=== PATIENT | female | born 1985 | race Caucasian/White ===

== ENCOUNTER 2023-03-01 07:49 | Outpatient (OUT) | payer OTHER, SELFPAY ==
[2023-03-01 09:31] LABS: Basophils Percent Auto 0.2 % (0.2-2.0); Eosinophils Absolute Auto 0.2 10^3/uL (0.0-0.7); Eosinophils Percent Auto 1.9 % (0.9-7.0); Hematocrit 42.4 % (36.0-48.0); Immature Granulocytes Abs Auto 0.07 10^3/uL (0.00-0.03); Immature Granulocytes Pct Auto 0.8 % (0.0-0.5); Lymphocytes Absolute Auto 2.3 10^3/uL (1.2-3.8); Lymphocytes Percent Auto 25.3 % (20.5-60.0); Mean Corpuscular Hemoglobin 27.9 pg (26.7-34.0); Mean Corpuscular Volume 84.5 fL (81.0-99.0); Mean Platelet Volume 8.4 fL (9.5-13.5); Monocytes Absolute Auto 0.5 10^3/uL (0.3-0.8); Neutrophils Absolute Auto 5.9 10^3/uL (1.4-6.5); Neutrophils Percent Auto 65.8 % (43.0-75.0); Platelet Count 401 10^3/uL (150-450); Red Blood Count 5.02 10^6/uL (4.20-5.40); Red Cell Distribution Width 13.6 % (11.0-15.0); White Blood Count 8.9 10^3/uL (4.0-11.0)
[2023-03-01 10:29] LABS: Alanine Aminotransferase 24 U/L (14-59); Albumin Globulin Ratio 0.9; Albumin Level 3.7 g/dL (3.4-5.0); Alkaline Phosphatase 88 U/L (46-116); Anion Gap 10.9; Aspartate Amino Transferase 12 U/L (15-37); BUN Creatinine Ratio 15.1; Bilirubin Total 0.2 mg/dL (0.2-1.0); Calcium 8.9 mg/dL (8.5-10.1); Carbon Dioxide 28.3 mmol/L (21.0-32.0); Chloride 103 mmol/L (98-107); Chol HDL Ratio 4.5; Cholesterol 183 mg/dL (<=200); Estimated GFR (African America >60 (>=60); Estimated GFR (Non-African Ame >60 (>=60); Globulin 3.9 g/dL; Glucose 98 mg/dL (74-106); HDL Cholesterol 41 mg/dL (40-60); Potassium 4.2 mmol/L (3.5-5.1); Sodium 138 mmol/L (136-145); Total Protein 7.6 g/dL (6.4-8.2); Triglycerides 150 mg/dL (<=150)
== END 2023-03-01 07:50 | disposition home or self-care (01) ==
LOC: LAB 07:50
PROVIDERS: PCP Family Medicine; Visit Provider Family Medicine
DX: Z00.00 Encounter for general adult medical examination without abnormal findings (principal)
CPT/HCPCS: 36415; 80053; 80061; 84443; 85025

== ENCOUNTER 2023-03-01 07:53 | Outpatient (OUT) | payer OTHER, SELFPAY ==
--- NOTE | 2023-03-01 08:05 | US_ITS ---
The [address] [address] Patient Name: LEANDRO HEATON MRN: [id number] date: 1985 Sex: F Assigned Patient Location: US Current Patient Location: Accession/Order Number: [id number] Exam Date: 03/01/2023 08:10 Report Date: 03/02/2023 07:32 At the request of: TATE ADDISON Procedure: US pelvis w/ transvaginal EXAM: Pelvic ultrasound ultrasound CLINICAL INDICATION: Irregular Menstruation N92.6. TECHNIQUE: Transabdominal and transvaginal grayscale and color Doppler images were obtained. FINDINGS: Uterus: Uterus measures 9.7 x 6.0 x 6.1 cm. Endometrium measures 23 mm thickness and is somewhat heterogenous echogenicity. Hypoechoic regions in the uterus, the largest measuring up to 1.2 cm, one of these is submucosal. Nabothian cysts. Right ovary: Measures 2.3 x 1.1 x 1.7 cm. Normal color flow and Doppler arterial and venous waveforms. No ovarian masses. Left ovary: Measures 4.0 x 2.0 x 2.9 cm. Normal color flow and Doppler arterial and venous waveforms. No ovarian masses. No free fluid in the pelvis. US/US pelvis w/ transvaginal IMPRESSION: Heterogenous thickened endometrium with multiple small uterine lesions. Findings likely represent small fibroids including a submucosal fibroid. However given the endometrial thickening a primary endometrial lesion cannot be excluded. Recommend follow-up ultrasound in 3 months. Electronically authenticated by: MORRIS TATUM Date: 03/02/2023 07:32
--- NOTE | 2023-03-01 09:10 | MM_ITS ---
Patient: LEANDRO HEATON Exam Date: 03/01/2023 : 1985 Gender:F Ordering : DR Wendy Ballard M.D. Admission #: [id number] Family : Order #: [id number] CLICK HERE TO VIEW EXAM RADIOLOGY REPORT PROCEDURE: MM TOMOSYNTHESIS SCREENING BI COMPARISON: MG MAMM DIAGNOSTIC 3D ROGE CAD, 01/12/2022. INDICATIONS: Screening Calculator Name NCI Breast Cancer Risk Assessment Tool 5 Year Breast Cancer Risk 1.00% Lifetime Breast Cancer Risk 16.90% Personal Breast Cancer No Personal Ovarian Cancer No Treatments None Family Cancers Mother with breast cancer at age 64. LOCATION: The [facility] BREAST COMPOSITION: Almost entirely fatty. FINDINGS: DIAGNOSTIC CATEGORY 2--BENIGN FINDING. NO CHANGE FROM COMPARISON. Scattered benign-appearing calcifications are present. RIGHT BREAST: No significant suspicious finding. LEFT BREAST: No significant suspicious finding. RECOMMENDATIONS: ROUTINE MAMMOGRAM AND CLINICAL EVALUATION IN 12 MONTHS. PLEASE NOTE: A NORMAL MAMMOGRAM DOES NOT EXCLUDE THE POSSIBILITY OF BREAST CANCER. A CLINICALLY SUSPICIOUS PALPABLE LUMP SHOULD BE BIOPSIED. Dictated by: Lane Edwards MD on 03/01/2023 at 10:30 Approved by: Lane Edwards MD on 03/01/2023 at 11:08
== END 2023-03-01 07:54 | disposition home or self-care (01) ==
LOC: US 07:53
PROVIDERS: PCP Family Medicine; Visit Provider Family Medicine
DX: Z00.00 Encounter for general adult medical examination without abnormal findings (principal); Z12.31 Encounter for screening mammogram for malignant neoplasm of breast; N92.6 Irregular menstruation, unspecified; Z80.3 Family history of malignant neoplasm of breast; R93.89 Abnormal findings on diagnostic imaging of other specified body structures
CPT/HCPCS: 36415; 76830; 76856; 77063; 77067; 80053; 80061; 84443; 85025

== ENCOUNTER 2023-04-22 11:42 | Outpatient (OUT) | payer OTHER, SELFPAY ==
--- NOTE | 2023-04-22 11:44 | ECG_ITS ---
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
== END 2023-04-22 11:43 | disposition home or self-care (01) ==
LOC: PST 11:44
PROVIDERS: PCP Family Medicine; Visit Provider Obstetrics & Gynecology
DX: Z01.810 Encounter for preprocedural cardiovascular examination (principal); R93.89 Abnormal findings on diagnostic imaging of other specified body structures; N93.9 Abnormal uterine and vaginal bleeding, unspecified; R10.2 Pelvic and perineal pain; N83.9 Noninflammatory disorder of ovary, fallopian tube and broad ligament, unspecified
CPT/HCPCS: 93005

== ENCOUNTER 2023-04-29 11:09 | Day surgery (SDC) | payer OTHER, SELFPAY ==
[2023-04-22 11:38] VITALS: BP 146/89; PULSE 72; RESP 20; TEMP 36.2; O2SAT 95; BMI 51.5
[2023-04-29] VITALS (14 sets, daily range): BP systolic 112–155; BP diastolic 69–97; PULSE 71–101; RESP 14–23; TEMP 36.3–36.7; O2SAT 92–100; BMI 51.5
[2023-04-29 11:39] LABS: Basophils Percent Auto 0.3 % (0.2-2.0); Eosinophils Absolute Auto 0.2 10^3/uL (0.0-0.7); Eosinophils Percent Auto 1.9 % (0.9-7.0); Hematocrit 42.2 % (36.0-48.0); Immature Granulocytes Abs Auto 0.06 10^3/uL (0.00-0.03); Immature Granulocytes Pct Auto 0.7 % (0.0-0.5); Lymphocytes Absolute Auto 2.4 10^3/uL (1.2-3.8); Lymphocytes Percent Auto 26.6 % (20.5-60.0); Mean Corpuscular HGB Conc 33.2 g/dL (29.9-35.2); Mean Corpuscular Hemoglobin 27.8 pg (26.7-34.0); Mean Corpuscular Volume 83.9 fL (81.0-99.0); Mean Platelet Volume 8.5 fL (9.5-13.5); Monocytes Absolute Auto 0.4 10^3/uL (0.3-0.8); Neutrophils Absolute Auto 5.8 10^3/uL (1.4-6.5); Neutrophils Percent Auto 65.5 % (43.0-75.0); Platelet Count 419 10^3/uL (150-450); Red Blood Count 5.03 10^6/uL (4.20-5.40); Red Cell Distribution Width 13.2 % (11.0-15.0); White Blood Count 8.9 10^3/uL (4.0-11.0)
[2023-04-29] MEDS: LACTATED RINGER'S SOLUTION 1,000 ML 50 ML IV ×2 (11:41→13:20)
[2023-04-29 11:46] LABS: HCG Quantitative <1 mIU/mL
--- NOTE | 2023-04-29 13:30 | P.ON_ITS ---
Brief Operative Note Date of procedure: 04/29/23 Pre-op diagnosis: aub, pelvic pain, dysmenorrhea Post-op diagnosis: other (uterine fibroid) Procedure: NAME OF PROCEDURE: [ D&c hysteroscopy with myosure dx laparoscopy with bilateral salpingectomy] PROCEDURE: The patient was taken back to the Operating Room where she was prepped and draped in normal sterile fashion after being placed under general anesthesia without difficulty. She was also placed in the dorsal lithotomy position. A weighted speculum was placed in the patient?s vagina. The anterior lip of the cervix was identified and grasped with a single tooth tenaculum. The patient?s uterus was then sounded roughly to [? 8] cm. The patient was then gently dilated using Hegar dilators. The hysteroscope was passed through the patient?s cervix into the uterus. Both ostia were identified. fluffy appearing endometrium. No gross evidence of malignancy, no gross evidence of polyps or fibroids. The MyoSure was then placed through the scope into the uterus, endometrial sampling in all quadrants was then performed. The mysosure was also used to remove a intramural uterine fibroid. the myosure apparatus was removed along with the hysteroscope from the patient's uterus. At that point, gentle curettage was performed until a gritty texture was noted. The endometrial curettings were sent out to pathology. The single tooth tenaculum was then removed from the patient's anterior lip of the cervix where excellent hemostasis was noted. . A wet sponge stick was placed into the patient's vagina. Attention was then turned to the patient's abdomen, where a scalpel was used to make a small infraumbilical incision. The S retractors were then used to dissect the underlying layers until the fascia could be seen. The fascia was then grasped with Bekah clamps and tented up. A knife was then used to make a small incision to the fascia. The muscle was identified, at that time two sutures of #0 Vicryl on a GI needle was then used and placed through the fascia. the peritoneum was then identified and entered bluntly. The 10-4 Cindy was then placed into the patient's abdomen. This was confirmed with direct visualization of the bowel, using the laparoscope. The patient's abdomen was then insufflated using approximately 4 liters of CO2 gas. Survey of the patient's abdomen demonstrated ovaries were normal in appearance as well as both tubes and uterus. A second and third rt and lt lateral ports which were 5 and 8 mm in size, was then placed after the skin incision was made under direct visualization . The patient's tube on the patient's right side was identified and tented up using a grasper, the ligasure apparatus was then used to come across the mesosalpingx from the fimbriated end to the insertion site at the uterus, the tube was then amputated and removed in its entirety. This was done on the contralateral side. The tubes were the removed from the patients abdomen. Excellent hemostasis was noted. The lateral ports were then moved under direct visualization with excellent hemostasis. All instruments were removed from the patient's abdomen. The fascia was closed using the #0 Vicryl on GI needle. The skin was closed using 4-0 Vicryl subcuticularly. All instruments were removed from the patient's vagina as well. The patient was taken out of the dorsal lithotomy position and placed in the supine position and taken to recovery in stable condition. Sponge, lap and needle counts were correct x2. Anesthesia: BRIANNA Surgeon: Mauri Katz Continuous Wave Operator: Shari Pelletier Estimated blood loss (mL): 5 Pathology: other (uterine fibroid, endometrial curretting, bilateral tubes) Condition: stable Disposition: PACU
[2023-04-29] MEDS: HYDROCODONE/ACET 5-325 MG TABLET 1 TAB PO (14:17)
[2023-04-29] MEDS: HYDROMORPHONE HCL 0.5 MG/0.5 ML SYRINGE IV (14:22)
== END 2023-04-29 15:50 | disposition home or self-care (01) ==
PROVIDERS: PCP Family Medicine; Visit Provider Obstetrics & Gynecology
PROC: (CPT 58558; principal; 2023-04-29 12:30)
DX: R93.89 Abnormal findings on diagnostic imaging of other specified body structures (principal); N93.9 Abnormal uterine and vaginal bleeding, unspecified; R10.2 Pelvic and perineal pain; N83.9 Noninflammatory disorder of ovary, fallopian tube and broad ligament, unspecified; F41.9 Anxiety disorder, unspecified; I10 Essential (primary) hypertension; G47.33 Obstructive sleep apnea (adult) (pediatric); Z90.49 Acquired absence of other specified parts of digestive tract; Z98.51 Tubal ligation status; D25.0 Submucous leiomyoma of uterus
CPT/HCPCS: 58558; 58661; 36415; 84702; 85025; 88302; 88305; J1170; J2704

== ENCOUNTER 2024-05-28 10:47 | Outpatient (OUT) | payer OTHER, SELFPAY ==
[2024-05-28 11:08] LABS: Basophils Percent Auto 0.3 % (0.2-2.0); Eosinophils Absolute Auto 0.2 10^3/uL (0.0-0.7); Eosinophils Percent Auto 1.5 % (0.9-7.0); Hematocrit 42.6 % (36.0-48.0); Hemoglobin 13.6 g/dL (12.0-16.0); Immature Granulocytes Abs Auto 0.05 10^3/uL (0.00-0.03); Immature Granulocytes Pct Auto 0.5 % (0.0-0.5); Lymphocytes Absolute Auto 2.7 10^3/uL (1.2-3.8); Lymphocytes Percent Auto 27.1 % (20.5-60.0); Mean Corpuscular HGB Conc 31.9 g/dL (29.9-35.2); Mean Corpuscular Hemoglobin 27.3 pg (26.7-34.0); Mean Corpuscular Volume 85.5 fL (81.0-99.0); Mean Platelet Volume 8.4 fL (9.5-13.5); Monocytes Absolute Auto 0.6 10^3/uL (0.3-0.8); Monocytes Percent Auto 6.4 % (1.7-12.0); Neutrophils Absolute Auto 6.3 10^3/uL (1.4-6.5); Neutrophils Percent Auto 64.2 % (43.0-75.0); Platelet Count 352 10^3/uL (150-450); Red Blood Count 4.98 10^6/uL (4.20-5.40); Red Cell Distribution Width 13.4 % (11.0-15.0); White Blood Count 9.9 10^3/uL (4.0-11.0)
--- NOTE | 2024-05-28 11:10 | MM_ITS ---
Patient Name: LEANDRO HEATON MR#: [id number] : 1985 Exam Date: 05/28/2024 Ordering Doctor: DR Wendy Ballard M.D. RADIOLOGY REPORT PROCEDURE: MM TOMOSYNTHESIS SCREENING BI COMPARISON: MM TOMOSYNTHESIS SCREENING BI, 03/01/2023. MG MAMM DIAGNOSTIC 3D ROGE CAD, 01/12/2022. INDICATIONS: Screening Calculator Name NCI Breast Cancer Risk Assessment Tool 5 Year Breast Cancer Risk 1.10% Lifetime Breast Cancer Risk 16.70% Personal Breast Cancer No Personal Ovarian Cancer No Treatments None Family Cancers Mother with breast cancer at age 64. LOCATION: The [facility] BREAST COMPOSITION: The breasts are almost entirely fatty. FINDINGS: DIAGNOSTIC CATEGORY 1--NEGATIVE. RIGHT BREAST: No significant suspicious finding. No significant change has occurred. LEFT BREAST: No significant suspicious finding. No significant change has occurred. RECOMMENDATIONS: ROUTINE MAMMOGRAM AND CLINICAL EVALUATION IN 12 MONTHS. PLEASE NOTE: A NORMAL MAMMOGRAM DOES NOT EXCLUDE THE POSSIBILITY OF BREAST CANCER. A CLINICALLY SUSPICIOUS PALPABLE LUMP SHOULD BE BIOPSIED. Dictated by: Vladimir Miner M.D. on 05/28/2024 at 15:35 Approved by: Vladimir Miner M.D. on 05/28/2024 at 15:38
[2024-05-28 14:50] LABS: Anion Gap 14.9; Carbon Dioxide 25.5 mmol/L (21.0-32.0); Chloride 102 mmol/L (98-107); Potassium 4.4 mmol/L (3.5-5.1); Sodium 138 mmol/L (136-145)
[2024-05-28 14:51] LABS: Aspartate Amino Transferase 13 U/L (15-37); BUN Creatinine Ratio 10.8; Bilirubin Total 0.3 mg/dL (0.2-1.0); Calcium 9.2 mg/dL (8.5-10.1); Estimated GFR (African America >60 (>=60 mL/min/1.73m^2); Estimated GFR (Non-African Ame >60 (>=60 mL/min/1.73m^2); Glucose 97 mg/dL (74-106)
[2024-05-28 14:52] LABS: Alanine Aminotransferase 23 U/L (14-59); Albumin Globulin Ratio 0.9; Albumin Level 3.5 g/dL (3.4-5.0); Alkaline Phosphatase 95 U/L (46-116); Chol HDL Ratio 4.3; Cholesterol 198 mg/dL (<=200); Globulin 3.8 g/dL; HDL Cholesterol 46 mg/dL (40-60); Thyroid Stimulating Hormone 3.203 uIU/mL (0.358-3.740); Total Protein 7.3 g/dL (6.4-8.2); Triglycerides 124 mg/dL (<=150); VLDL CHOLESTEROL 24.8 mg/dL
== END 2024-05-28 10:48 | disposition home or self-care (01) ==
LOC: MAMMO 10:51
PROVIDERS: PCP Family Medicine; Visit Provider Family Medicine
DX: Z00.00 Encounter for general adult medical examination without abnormal findings (principal); Z12.31 Encounter for screening mammogram for malignant neoplasm of breast; Z80.3 Family history of malignant neoplasm of breast
CPT/HCPCS: 36415; 77063; 77067; 80053; 80061; 84443; 85025

== ENCOUNTER 2024-08-11 09:58 | Outpatient (OUT) | payer OTHER, SELFPAY ==
--- NOTE | 2024-08-11 10:15 | XR_ITS ---
The [address] [address] Patient Name: LEANDRO HEATON MRN: [id number] date: 1985 Sex: F Assigned Patient Location: [facility] Current Patient Location: [facility] Accession/Order Number: [id number] Exam Date: 08/11/2024 10:08 Report Date: 08/11/2024 10:23 At the request of: HELEN CONLEY Procedure: XR chest 2V EXAMINATION: XR chest 2V HISTORY: Fever, Cough COMPARISON: No relevant comparison available. TECHNIQUE: PA and lateral FINDINGS: LUNGS: No significant pulmonary parenchymal abnormalities. VASCULATURE: No increased pulmonary vasculature. PLEURA: No pneumothorax, effusion, or pleural thickening. CARDIAC: No cardiomegaly or cardiac silhouette abnormality. MEDIASTINUM: No visible mass or adenopathy. BONES: No fracture or visible bone lesion. Cervical disc replacement OTHER: Negative. XR/XR chest 2V IMPRESSION: No acute cardiopulmonary process Electronically authenticated by: SERVANDO TOSCANO Date: 08/11/2024 10:23
== END 2024-08-11 09:59 | disposition home or self-care (01) ==
LOC: RAD 10:00
PROVIDERS: PCP Family Medicine; Visit Provider Nurse Practitioner Family
DX: R50.9 Fever, unspecified (principal); R05.9 Cough, unspecified
CPT/HCPCS: 71046

== ENCOUNTER 2024-11-22 15:12 | Emergency (ER) | payer OTHER, BC, SELFPAY ==
[2024-11-22 15:17] VITALS: BP 147/88; PULSE 98; TEMP 36.8; O2SAT 97; BMI 49.2
--- OUTSIDE RECORDS SUMMARY | 2024-11-22 15:33 | XMS_ITS | CCD ---
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 Name Role Phone Evert Addison Unavailable MD Wendy Addison Primary Care Provider DO Amira Sewell Attending Provider Amira Sewell Unavailable AZAEL, DR WENDY Cullen Admitting Unavailable ADDISON, DR WENDY Cullen Attending Unavailable ADDISON, DR WENDY Cullen Primary Care Unavailable ADDISON, DR WENDY Cullen Consulting Unavailable ADDISON, DR WENDY Cullen Admitting Unavailable ADDISON, DR WENDY Cullen Attending Unavailable ADDISON, DR WENDY Cullen Primary Care Unavailable ADDISON, DR WENDY Cullen Consulting Unavailable ADDISON, DR WENDY Cullen Admitting Unavailable ADDISON, DR WENDY Cullen Attending Unavailable ADDISON, DR WENDY Cullen Primary Care Unavailable ADDISON, DR WENDY Cullen Consulting Unavailable AMIRA SEWELL Admitting Unavailable AMIRA SEWELL Attending Unavailable ADDISON, DR WENDY Cullen Primary Care Unavailable ADDISON, DR WENDY Cullen Admitting Unavailable ADDISON, DR WENDY Cullen Attending Unavailable ADDISON, DR WENDY Cullen Primary Care Unavailable VEBLEN, DR SERVANDO Hammond Consulting Unavailable ADDISON, DR WENDY Cullen Consulting Unavailable ADDISON, DR WENDY Cullen Admitting Unavailable ADDISON, DR WENDY Cullen Attending Unavailable ADDISON, DR WENDY Cullen Primary Care Unavailable ADDISON, DR WENDY Cullen Consulting Unavailable Sharita, Amber Y Attending Unavailable Sharita Amber Y Admitting Unavailable Wendy Addison Unavailable MD Wendy Addison Attending Provider DO Amira Sewell Attending Provider MD Wendy Addison Primary Care Provider [phone] Aziza Romero Attending Unavailable Aziza Romero Admitting Unavailable Wendy Addison Primary Care Unavailable Wendy Addison MD Primary Care Provider [phone] Aziza Romero DO Attending Provider Allergies Allergy Classification Reported Allergen(s) Allergy Type Date of Onset Reaction(s) Facility (4 sources) patient allergy list reviewed by nurse or physicia Propensity to adverse reactions 3 Comment:Done [place] Other (4 sources) Allergies Reconciled Propensity to adverse reactions Unknown [place] Other Medications Current Medications Medication Drug Class(es) Dates Sig (Normalized) Sig (Original) carvedilol 12.5 mg oral tablet (1 source) alpha-Adrenergic Lico, beta-Adrenergic Lico Start: 09-10-2024 take 1 tablet by mouth twice daily at mealtime Carvedilol (Coreg) 12.5 mg tablet Active 12.5 MG PO Twice daily September 10, 2024 1:00am must administer with a meal/food celecoxib 200 mg oral capsule (6 sources) Nonsteroidal Anti-inflammatory Drug Start: 03-14-2022 take 1 capsule by mouth every twenty-four hours Celecoxib 200 MG 1 capsule with food Orally Once a day for 90 day(s) Feb, Active Ciclopirox Treatment 8% (1 source) Start: 03-09-2022 Ciclopirox Treatment 8% Ciclopirox Treatment 8%, 1 (one) Application daily # 1, 03/09/2022, Ref. x2. Active External daily for 0 nail formula *Pick strength-form from [employer] for eRX* Feb, Active Iron (1 source) take 1 tablet by mouth once daily Iron 325 (65 Fe) MG 1 tablet Orally Once a day Active Neomycin-Polymyxi n-HC (1 source) Start: 03-09-2022 Neomycin-Polymyxin -HC Neomycin-Polymyxin -HC , 4 Metric Drop two times daily # 1, 03/09/2022, No Refill. Active Otic two times daily for 0 *Pick strength-form from [facility] for eRX* Feb, Active omeprazole 20 mg delayed release oral capsule (5 sources) Proton Pump Inhibitor Start: 11-16-2024 take 1 capsule by mouth once daily Omeprazole 20 mg capsule,delayed release(DR/EC) Active 20 MG PO Daily November 16, 2024 12:00am Start: 08-01-2024 End: 09-10-2024 take 1 capsule by mouth once daily Omeprazole 20 mg capsule,delayed release(DR/EC) Discontinued 20 MG PO Daily August 01, 2024 1:00am September 10, 2024 2:52pm sertraline 50 mg oral tablet (20 sources) Serotonin Reuptake Inhibitor Start: 09-10-2024 Sertraline 50 mg tablet Active 25 MG PO Daily September 10, 2024 3:16pm Start: 09-08-2024 End: 09-10-2024 take 1 tablet by mouth once daily Sertraline 50 mg tablet Discontinued 0 .ROUTE .COMPLEX September 08, 2024 3:12pm September 10, 2024 3:16pm TAKE 1 TABLET BY MOUTH EVERY DAY. TAKE WITH 25MG FOR 75MG DAILY Start: 08-01-2024 End: 09-08-2024 take 1 tablet by mouth once daily Sertraline 50 mg tablet Discontinued 50 MG PO Daily August 01, 2024 11:36am September 08, 2024 3:12pm Start: 02-24-2024 End: 08-01-2024 take 1 tablet by mouth once daily Sertraline 50 mg tablet Discontinued 0 .ROUTE .COMPLEX June 22, 2024 10:30am August 01, 2024 11:37am TAKE 1 TABLET BY MOUTH EVERY DAY. TAKE WITH 25MG FOR 75MG DAILY Start: 01-02-2024 End: 08-01-2024 take 2 tablets by mouth once daily Sertraline 25 mg tablet Discontinued 25 MG PO Daily February 25, 2024 9:47am August 01, 2024 11:36am Take with 50mg for 75mg daily Start: 01-02-2024 End: 02-25-2024 take 50 mg by mouth once daily Sertraline Active 25 MG PO Daily February 25, 2024 8:47am Take with 50mg for 75mg daily Start: 01-02-2024 End: 02-24-2024 Sertraline 50 mg tablet Disc ontinued 50 MG PO Daily January 28, 2024 3:41pm February 24, 2024 11:44am Take with 25mg for 75mg daily Start: 12-30-2023 End: 01-02-2024 Sertraline 100 mg tablet Discontinued 75 MG PO Every morning December 31, 2023 9:48am January 02, 2024 8:13am Start: 12-30-2023 End: 01-02-2024 take 75 mg by mouth once daily in the morning Sertraline Discontinued 75 MG PO Every morning December 31, 2023 8:48am January 02, 2024 7:13am Start: 03-27-2021 End: 12-30-2023 take 1 tablet by mouth once daily in the morning Sertraline 100 mg tablet Discontinued 100 MG PO Every morning March 27, 2021 12:00am December 30, 2023 10:59am take 1 tablet by haley th once daily Sertraline HCl 25 MG 1 tablet Orally Once a day for 90 days Total of 75mg daily Active take 1 tablet by haley th once daily Sertraline HCl 50 MG 1 tablet Orally Once a day for 90 days Total of 75mg daily Active terbinafine 250 mg oral tablet (1 source) Allylamine Antifungal Start: 03-08-2022 take 1 tablet by mouth once daily Terbinafine HCl 250MG Terbinafine HCl 250MG, 1 (one) Tablet Tablet daily # 30, 03/08/2022, Ref. x1. Active Oral daily for 0 *Pick strength-form from [facility] for eRX* Feb, Active Vitamin C 100 MG (11 sources) take 1 tablet by mouth once daily Vitamin C 100 MG 1 tablet Orally Once a day Active Completed/Discontinued Medications Medication Drug Class(es) Dates Sig (Normalized) Sig (Original) amoxicillin 875 mg / clavulanate 125 mg oral tablet (5 sources) Penicillin-class Antibacterial Start: 08-01-2024 End: 08-11-2024 take 1 tablet by mouth every twelve hours Amoxicillin-Pot Clavulanate 875-125 mg tablet Discontinued 1 TAB PO Every 12 hours 03 05August 01, 2024 1:00am August 11, 2024 10:31am Start: 08-23-2023 take 1 tablet by haley th every twelve hours Amoxicillin-Pot Clavulanate 875-125 MG 1 tablet Orally every 12 hrs for 10 day(s) Aug, Active ascorbic acid 1000 mg oral tablet (14 sources) Vitamin C Start: 03-27-2021 End: 01-24-2024 take 1 g by mouth once daily Ascorbic Acid (Vitamin C) (Vitamin C) 1,000 mg Tablet Discontinued 1 GM PO Daily March 27, 2021 12:00am January 24, 2024 2:23pm take 1 tablet by haley th every twenty-four hours Vitamin C 100 MG 1 tablet Orally Once a day Active baclofen 10 mg oral tablet (10 sources) gamma-Aminobutyric Acid-ergic Agonist Start: 03-27-2021 End: 04-11-2021 take 1 tablet by mouth twice daily as needed for muscle spasms Baclofen 10 mg tablet Discontinued 10 MG PO Twice daily as needed for Muscle Spasm March 27, 2021 12:00am April 11, 2021 8:06am benzonatate 200 mg oral capsule (4 sources) Non-narcotic Antitussive Start: 08-01-2024 End: 08-11-2024 take 1 capsule by mouth three times daily as needed for cough Benzonatate 200 mg capsule Discontinued 200 MG PO Three times daily as needed for cough 30 August 01, 2024 1:00am August 11, 2024 10:31am cefdinir 300 mg oral capsule (3 sources) Cephalosporin Antibacterial Start: 08-04-2024 End: 08-11-2024 take 1 capsule by mouth every twelve hours Cefdinir 300 mg capsule Discontinued 300 MG PO Every 12 hours 14 August 04, 2024 1:00am August 11, 2024 10:31am cephalexin 500 mg oral capsule (9 sources) Cephalosporin Antibacterial Start: 04-11-2021 End: 07-02-2023 take 1 capsule by mouth three times daily Cephalexin 500 mg capsule Discontinued 500 MG PO Three times daily 15 April 11, 2021 12:00am July 02, 2023 7:09am cyclobenzaprine hydrochloride 10 mg oral tablet (9 sources) Muscle Relaxant Start: 04-11-2021 End: 07-02-2023 take 1 tablet by mouth three times daily as needed for muscle spasms Cyclobenzaprine 10 mg tablet Discontinued 10 MG PO Three times daily as needed for back spasms 50 April 11, 2021 12:00am July 02, 2023 7:09am dextromethorphan hydrobromide 3 mg/ml / promethazine hydrochloride 1.25 mg/ml oral solution (3 sources) Phenothiazine, Uncompetitive V-cqlirt-B-aspartate Receptor Antagonist, Sigma-1 Agonist Start: 08-11-2024 End: 08-24-2024 take 1 mL by mouth every four to six hours as needed for cough Promethazine-Dm 6.25-15 mg/5 mL syrup Discontinued 5 ML PO EVERY 4-6 HOURS as needed for cough 118 7 August 11, 2024 1:00am August 24, 2024 12:44pm dicyclomine hydrochloride 10 mg oral capsule (10 sources) Anticholinergic Start: 01-24-2024 End: 05-19-2024 take 1 capsule by mouth twice daily as needed for pain Dicyclomine 10 mg capsule Discontinued 10 MG PO Twice daily as needed for abdominal pain February 12, 2024 8:28am May 19, 2024 3:40pm ferrous sulfate 325 mg oral tablet (20 sources) Start: 06-09-2024 End: 09-10-2024 take 1 tablet by mouth once daily Ferrous Sulfate (Ferosul) 325 mg (65 mg iron) tablet Discontinued 325 MG PO Daily June 09, 2024 1:00am September 10, 2024 2:52pm Start: 03-27-2021 End: 06-09-2024 take 1 tablet by mouth once daily Ferrous Sulfate, Dried (Iron) 159 mg (45 mg iron) Tablet Extended Release Discontinued 159 MG PO Daily March 27, 2021 12:00am June 09, 2024 10:20am take 1 tablet by haley th every twenty-four hours Iron 325 (65 Fe) MG 1 tablet Orally Once a day Active fluconazole 150 mg oral tablet (6 sources) Azole Antifungal Start: 09-02-2023 End: 01-23-2024 Fluconazole 150 mg tablet Discontinued 150 MG PO Q3D 2 September 02, 2023 1:00am January 23, 2024 9:02am glipiZIDE 10 mg oral tablet (6 sources) Sulfonylurea Start: 12-30-2023 End: 12-30-2023 take 2 tablets by mouth twice daily Glipizide 10 mg tablet Discontinued 20 MG PO Twice daily December 30, 2023 12:00am December 30, 2023 11:03am Start: 12-30-2023 End: 12-30-2023 take 20 mg by mouth twice daily Glipizide Discontinued 20 MG PO Twice daily December 29, 2023 11:00pm December 30, 2023 10:03am homatropine methylbromide 0.3 mg/ml / HYDROcodone bitartrate 1 mg/ml oral solution (2 sources) Opioid Agonist, Cholinergic Muscarinic Agonist Start: 08-24-2024 End: 09-10-2024 Hydrocodone-Homatropine (Hycodan) 5-1.5 mg/5 mL (5 mL) syrup Discontinued 5 ML PO Every 6 hours as needed for cough 80 4 August 24, 2024 September 10, 2024 2:52pm metoprolol tartrate 50 mg oral tablet (20 sources) beta-Adrenergic Lico Start: 08-01-2024 End: 09-10-2024 take 1 tablet by mouth twice daily Metoprolol Tartrate 50 mg tablet Discontinued 50 MG PO Twice daily August 01, 2024 11:36am September 10, 2024 3:15pm Start: 04-08-2024 take 1 tablet by haley th twice daily at mealtime Metoprolol Tartrate Active 0 .ROUTE .COMPLEX 180 April 08, 2024 12:20pm TAKE 1 TABLET BY MOUTH TWICE A DAY WITH FOOD FOR 30 DAYS Start: 09-16-2023 End: 08-01-2024 take 1 tablet by mouth twice daily at mealtime Metoprolol Tartrate 50 mg tablet Discontinued 0 .ROUTE .COMPLEX 180 April 08, 2024 1:20pm August 01, 2024 11:37am TAKE 1 TABLET BY MOUTH TWICE A DAY WITH FOOD FOR 30 DAYS Start: 09-16-2023 End: 01-13-2024 take 1 tablet by mouth twice daily at mealtime Metoprolol Tartrate Discontinued 0 .ROUTE .COMPLEX 60 September 16, 2023 10:06am January 13, 2024 8:32am TAKE 1 TABLET BY MOUTH TWICE A DAY WITH FOOD FOR 30 DAYS Start: 09-16-2023 End: 01-13-2024 take 1 tablet by mouth twice daily at mealtime Metoprolol Tartrate Discontinued 0 .ROUTE .COMPLEX 60 September 16, 2023 11:06am January 13, 2024 9:32am TAKE 1 TABLET BY MOUTH TWICE A DAY WITH FOOD FOR 30 DAYS Start: 09-16-2023 End: 09-16-2023 take 1 tablet by mouth twice daily Metoprolol Tartrate 50 mg tablet Discontinued 50 MG PO Twice daily September 16, 2023 1:00am September 16, 2023 11:06am Start: 04-10-2022 take 1 tablet by haley th once daily Metoprolol Succinate 25mg metoprolol succinate 25mg, 1 (one) Tablet daily # 30, 04/10/2022, Ref. x2. Active oral daily for 0 *Reorder from [facility] for eRx and Interaction Alerts* Mar, Active Start: 03-27-2021 End: 09-16-2023 take 1 tablet by mouth once daily in the morning Metoprolol Succinate 25 mg tablet extended release 24 hr Discontinued 25 MG PO Every morning March 27, 2021 12:00am September 16, 2023 10:29am take 1 tablet by haley th every twelve hours Metoprolol Tartrate 50 MG 1 tablet with food Orally Twice a day for 30 days Active take 1 tablet by haley th every twelve hours Metoprolol Tartrate 25 MG 1 tablet with food Orally Twice a day Active montelukast 10 mg oral tablet (14 sources) Leukotriene Receptor Antagonist Start: 09-04-2023 End: 01-24-2024 take 1 tablet by mouth once daily at bedtime Montelukast (Singulair) 10 mg tablet Discontinued 10 MG PO Daily at bedtime September 05, 2023 9:46am January 24, 2024 2:23pm [employer] tablet Orally qhs; Note: Source Status: Start; Provider: Azael Cullen take 1 tablet by haley th once daily at bedtime Singulair 10 MG 1 tablet Orally qhs for 30 days Active oxyCODONE hydrochloride 5 mg oral tablet (9 sources) Opioid Agonist Start: 04-11-2021 End: 07-02-2023 take 1 tablet by mouth every four to six hours as needed for pain Oxycodone 5 mg Tablet Discontinued 5 MG PO EVERY 4-6 HOURS as needed for pain 40 April 11, 2021 July 02, 2023 7:09am predniSONE 10 mg oral tablet (9 sources) Start: 04-11-2021 End: 07-02-2023 Prednisone 10 mg tablets,dose pack Discontinued 1 dose pk PO per package directions April 11, 2021 12:00am July 02, 2023 7:09am take 4 tabs for 3 days then take 3 tabs for 3 days then take 2 tabs for 3 days then take 1 tab for 3 days Start: 04-11-2021 End: 07-02-2023 Prednisone Discontinued 1 do se pk PO per package directions April 11, 2021 12:00am July 02, 2023 7:09am take 4 tabs for 3 days then take 3 tabs for 3 days then take 2 tabs for 3 days then take 1 tab for 3 days Start: 04-11-2021 End: 07-02-2023 Prednisone Discontinued 1 do se pk PO per package directions April 10, 2021 11:00pm July 02, 2023 6:09am take 4 tabs for 3 days then take 3 tabs for 3 days then take 2 tabs for 3 days then take 1 tab for 3 days Start: 04-11-2021 Prednisone Act sukumar 1 dose pk PO per package directions April 11, 2021 12:00am take 4 tabs for 3 days then take 3 tabs for 3 days then take 2 tabs for 3 days then take 1 tab for 3 days traMADol hydrochloride 50 mg oral tablet (16 sources) Opioid Agonist Start: 07-02-2023 End: 01-24-2024 take 1 tablet by mouth every four hours as needed for pain Tramadol 50 mg tablet Discontinued 50 MG PO Q4H as needed for pain 10 7 July 02, 2023 1:00am January 24, 2024 2:23pm Start: 03-27-2021 End: 04-11-2021 take 1 tablet by mouth every six hours as needed for pain Tramadol 50 mg tablet Discontinued 50 MG PO Q6H as needed for Pain March 27, 2021 12:00am April 11, 2021 8:06am triamcinolone acetonide 40 mg/ml injectable suspension (2 sources) Corticosteroid Start: 08-13-2023 Kenalog-40 Jul, 60 mg Turmeric extract (20 sources) Start: 03-27-2021 End: 07-02-2023 take 1 capsule by mouth once daily Turmeric 400 mg Capsule Discontinued 800 MG PO Daily March 27, 2021 12:00am July 02, 2023 7:11am Start: 03-27-2021 End: 07-02-2023 take 1 capsule by mouth once daily Turmeric 400 mg Capsule Discontinued 800 MG PO Daily March 26, 2021 11:00pm July 02, 2023 6:11am Start: 03-27-2021 End: 07-02-2023 take 800 mg by mouth once daily Turmeric Discontinued 800 MG PO Daily March 27, 2021 12:00am July 02, 2023 7:11am Start: 03-27-2021 End: 07-02-2023 take 800 mg by mouth once daily Turmeric Discontinued 800 MG PO Daily March 26, 2021 11:00pm July 02, 2023 6:11am Start: 03-27-2021 take 800 mg by mouth once yuko y Turmeric Active 800 MG PO Daily March 27, 2021 12:00am Turmeric 500 MG as directed Orally Active Problems Active Problems Problem Classification Problem Date Documented Da te Episodic/Chronic Abdominal pain (5 sources) Abdominal pain; Translations: [Unspecified abdominal pain] 02-06-2024 Episodic Allergic reactions (4 sources) Allergic contact dermatitis; Translations: [Allergic contact dermatitis, unspecified cause] Episodic Anxiety disorders (11 sources) Generalized anxiety disorder; Translations: [Generalized anxiety disorder] Onset: 02-16-2015 01-02-2024 Chronic Essential hypertension (17 sources) Essential hypertension; Translations: [Essential (primary) hypertension] Onset: 09-03-2018 Chronic Essential hypertension (1 source) Essential hypertension; Translations: [Essential hypertension, benign] Onset: 09-03-2018 Fever of unknown origin (5 sources) Fever; Translations: [Fever, unspecified] 08-11-2024 Episodic Gastrointestinal hemorrhage (9 sources) Hematochezia; Translations: [Melena] Onset: 06-23-2024 05-19-2024 Episodic Genitourinary symptoms and ill-defined conditions (6 sources) Genuine stress incontinence; Translations: [Stress incontinence (female) (male)] 05-20-2024 Chronic Immunizations and screening for infectious disease (1 source) Encounter for screening for other viral diseases; Translations: [Encounter for screening for other viral diseases] Episodic Influenza (5 sources) Influenza due to Influenza A virus; Translations: [Influenza due to other identified influenza virus with other respiratory manifestations] 08-11-2024 Episodic Joint disorders and dislocations; trauma-related (12 sources) Derangement of right knee; Translations: [Unspecified internal derangement of right knee] Chronic Joint disorders and dislocations; trauma-related (3 sources) Unspecified subluxation of right knee, initial encounter; Translations: [Unspecified subluxation of right knee, subsequent encounter] Onset: 03-14-2022 Resolved: 03-14-2022 Episodic Menstrual disorders (1 source) Irregular menstruation, unspecified Chronic Mood disorders (3 sources) Depression; Translations: [Depression, unspecified] Chronic Mood disorders (2 sources) Mood disorders; Translations: [Depression, unspecified] Mycoses (8 sources) Superficial mycosis; Translations: [Superficial mycosis, unspecified] Episodic Nonmalignant breast conditions (8 sources) Unspecified lump in the left breast, unspecified quadrant; Translations: [Lump in left breast] Onset: 01-12-2022 Episodic Osteoarthritis (20 sources) Osteoarthritis of right knee joint; Translations: [Unilateral primary osteoarthritis, right knee] Onset: 03-14-2022 Resolved: 03-14-2022 Chronic Other aftercare (1 source) Encounter for removal of sutures Episodic Other circulatory disease (3 sources) Elevated blood-pressure reading without diagnosis of hypertension; Translations: [Elevated blood-pressure reading, without diagnosis of hypertension] Episodic Other circulatory disease (1 source) Elevated blood-pressure reading, without diagnosis of hypertension; Translations: [Elevated blood-pressure reading, without diagnosis of hypertension] Episodic Other connective tissue disease (3 sources) Muscle pain; Translations: [Myalgia, other site] Episodic Other connective tissue disease (1 source) Myalgia, other site; Translations: [Myalgia, other site] Episodic Other connective tissue disease (2 sources) Trigger finger, right middle finger Episodic Other connective tissue disease (7 sources) Triggering of digit; Translations: [Trigger finger, unspecified finger] 07-02-2023 Episodic Other endocrine disorders (3 sources) Disorder of pituitary gland; Translations: [Other disorders of pituitary gland] Chronic Other endocrine disorders (1 source) Other disorders of pituitary gland; Translations: [Other disorders of pituitary gland] Chronic Other lower respiratory disease (5 sources) Cough; Translations: [Cough] 08-11-2024 Episodic Other non-traumatic joint disorders (4 sources) Pain in right knee; Translations: [PAIN IN RIGHT KNEE] Onset: 03-14-2022 Resolved: 03-14-2022 Episodic Other non-traumatic joint disorders (3 sources) Arthralgia of the lower leg; Translations: [Pain in right knee] Episodic Other nutritional; endocrine; and metabolic disorders (9 sources) Body mass index 40+ - severely obese; Translations: [Body mass index (BMI) 45.0-49.9, adult] Onset: 01-01-2019 Chronic Other nutritional; endocrine; and metabolic disorders (3 sources) Obesity; Translations: [Obesity, unspecified] Onset: 10-07-2014 Chronic Other nutritional; endocrine; and metabolic disorders (3 sources) Morbid obesity; Translations: [Morbid (severe) obesity due to excess calories] Chronic Other nutritional; endocrine; and metabolic disorders (1 source) Body mass index (BMI) 45.0-49.9, adult; Translations: [Body mass index (BMI) 45.0-49.9, adult] Chronic Other nutritional; endocrine; and metabolic disorders (1 source) Body mass index (BMI) 50.0-59.9, adult; Translations: [Body mass index (BMI) 50-59.9 , adult] Chronic Other nutritional; endocrine; and metabolic disorders (1 source) Obesity, unspecified; Translations: [Obesity, unspecified] Onset: 10-07-2014 Chronic Other nutritional; endocrine; and metabolic disorders (1 source) Morbid (severe) obesity due to excess calories; Translations: [Morbid (severe) obesity due to excess calories] Chronic Other screening for suspected conditions (not mental disorders or infectious disease) (13 sources) Encounter for screening for malignant neoplasm of cervix; Translations: [Encounter for screening mammogram for malignant neoplasm of breast] Onset: 02-23-2022 Episodic Other upper respiratory disease (2 sources) Allergic rhinitis; Translations: [Other allergic rhinitis] Chronic Other upper respiratory disease (1 source) Other allergic rhinitis Chronic Other upper respiratory infections (10 sources) Chronic maxillary sinusitis; Translations: [Chronic maxillary sinusitis] Onset: 11-08-2015 09-02-2023 Chronic Other upper respiratory infections (10 sources) Acute pharyngitis, unspecified; Translations: [Acute pharyngitis] Onset: 03-05-2022 08-01-2024 Episodic Otitis media and related conditions (8 sources) Otitis media; Translations: [Otitis media, unspecified, unspecified ear] Onset: 06-26-2018 Episodic Residual codes; unclassified (1 source) Other specified postprocedural states Episodic Spondylosis; intervertebral disc disorders; other back problems (14 sources) Cervical disc disorder at C5-C6 level with radiculopathy; Translations: [Cervical disc disorder with radiculopathy] Onset: 05-09-2021 Resolved: 05-09-2021 Episodic Unclassified (3 sources) CONTACT W/AND (SUSP) EXPOS COVID-19; Translations: [CONTACT W/AND (SUSP) EXPOS COVID-19] Onset: 03-05-2022 Unclassified (3 sources) Contraception care education done; Translations: [General counseling for initiation of other contraceptive measures] Onset: 10-07-2014 Unclassified (1 source) Screening examination for venereal disease; Translations: [Screening examination for venereal disease] Onset: 10-03-2018 Unclassified (1 source) Routine general medical examination at health care facility; Translations: [Routine general medical examination at health care facility] Onset: 11-11-2013 Unclassified (1 source) General counseling for initiation of other contraceptive measures; Translations: [General counseling for initiation of other contraceptive measures] Onset: 10-07-2014 Unclassified (1 source) Other screening mammogram; Translations: [Other screening mammogram] Onset: 09-03-2018 Unclassified (1 source) Body Mass Index 40.0-44.9, adult; Translations: [Body Mass Index 40.0-44.9, adult] Onset: 01-01-2019 Past or Other Problems Problem Classification Problem Date Documented Da te Episodic/Chronic Cardiac dysrhythmias (8 sources) Palpitations; Translations: [Palpitations] Onset: 02-16-2015 Episodic Diseases of mouth; excluding dental (4 sources) Sialoadenitis; Translations: [Sialoadenitis] Onset: 06-26-2018 Episodic Lymphadenitis (8 sources) Localized enlarged lymph nodes; Translations: [Localized enlarged lymph nodes] Onset: 06-22-2013 Episodic Unclassified (1 source) CONTACT W/AND (SUSP) EXPOS COVID-19; Translations: [CONTACT W/AND (SUSP) EXPOS COVID-19] Onset: 03-02-2022 Viral infection (8 sources) Verruca plantaris; Translations: [Plantar wart] Onset: 06-22-2013 Episodic Results Test Name Value Interpretation Reference Range Facility Influenza virus B Ag [Presen ce] in Upper respiratory specimen by Rapid immunoassayon 08-11-2024 FLUBV Ag IA.rapid Ql (Nph) Influenza virus B Ag [Presence] in Upper respiratory specimen by Rapid immunoassay [facility] No Panel Informationon 08-11 Influenza Type A (Rapid) Positive [facility] POC SARS CoV-2 Antigen Negative [facility] HCG ( test) IA.rapi d Ql (U)Ordered By: Aziza Romero on 06-23-2024 HCG ( test) Ql (U) Urine human chorionic gonadotropin (hCG) detection by immunoassay [facility] HCG,Urineon 06-23-2024 Beta HCG ( test) Ql (U) Negative Normal [facility] Comment on above: Result Comment: PERF ORMED BY: [place] [address] PATHOLOGIST NURSE WOUND ADAM RICKETTS M.D. Performed By: #### U HCG #### [address] 06-23-2024 L Specimen: [id number] Received: 06/23/24 Status: LAVERNE Perez Num: [id number] Spec Type: Surgical Subm Dr: Aziza Romero, DO Tissues: A Colon Biopsy (TRANSVERSE POLYP) Procedures: HE/2, Gross/Micro L4 Age/ Patient Sex Location Account Attending Physician Leandro Heaton 39/F [id number] Aziza Romero, SPEC NUM: [id number] RECD: 06/23/24 STATUS: LAVERNE CORINE NUM: [id number] CHERY: 06/23/24-1023 [facility] DR: Aziza Romero DO ENTERED: 06/23/24-[address]: COLLEEN TYPE: Surgical DEPT: S ENTERED BY: [id number] RECV BY: [id number] ORDERED: HE/2, Gross/Micro L4 ORDERED: HE/2, Gross/Micro L4 Pathological Diagnosis Polyp, transverse colon: Tubular Adenoma. - Negative For High Grade Dysplasia And Malignancy. Clinical Information Melena Gross Description Part A is received in formalin labeled with the patients name, date of , and transverse polyp is a saba-lazcano, focally erythematous, friable, 0.3 cm in greatest dimension polypoid fragment. The specimen is entirely submitted in a single cassette. (1, ns, [id number]) CPT Codes 58461 Specimen: [id number] Received: 06/23/24 Status: LAVERNE Perez Num: [id number] Spec Type: Surgical Subm Dr: Aziza Romero DO Tissues: A Colon Biopsy (TRANSVERSE POLYP) Procedures: HE/2, Gross/Micro L4 Patient: Leandro Heaton [id number] (Continued) Signed (signature on file) Adam Ricketts MD 06/24/24 1545 Normal [facility] Basophils Auto (Bld) [#/Vol] on 05-28-2024 Basophils (Bld) [#/Vol] Automated basophil count 0.0-0.1 [facility] Basophils/100 WBC Auto (Bld) on 05-28-2024 Basophils/100 WBC (Bld) Automated basophil % 0.2-2.0 [facility] Cholesterol in LDL Calc [Mas s/Vol]on 05-28-2024 Cholesterol in LDL [Mass/Vol] Cholesterol in LDL [Mass/volume] in Serum or Plasma by calculation [facility] Comment on above: <100 mg/dl [id number] 0-129 mg/dl NEAR OR ABOVE [id number] mg/dl BORDERLINE [id number] mg/dl HIGH>190 mg/dl VERY HIGH Cholesterol in VLDL Calc [Ma ss/Vol]on 05-28-2024 Cholesterol in VLDL [Mass/Vol] Cholesterol in VLDL [Mass/volume] in Serum or Plasma by calculation [facility] Eosinophils/100 WBC Auto (Bl d)on 05-28-2024 Eosinophils/100 WBC (Bld) Automated eosinophil % 0.9-7.0 [facility] Erythrocyte distribution wid th Auto (RBC) [Ratio]on 05-28-2024 Erythrocyte distribution width (RBC) [Ratio] Erythrocyte distribution width [Ratio] by Automated count 11.0-15.0 [facility] Estimated glomerular filtrat ion rate (GFR) non- Americanon 05-28-2024 GFR/1.73 sq M.predicted among non-blacks MDRD (S/P/Bld) [Vol rate/Area] Estimated glomerular filtration rate (GFR) non- >=60 mL/min/1.73m 2 [facility] Globulin Calc (S) [Mass/Vol] on 05-28-2024 Globulin (S) [Mass/Vol] Serum globulin measurement by calculation (mass/volume) [facility] Hematocrit Auto (Bld) [Volum e fraction]on 05-28-2024 Hematocrit (Bld) [Volume fraction] Hematocrit [Volume Fraction] of Blood by Automated count 36.0-48.0 [facility] Hemoglobin [Mass/volume] in Bloodon 05-28-2024 Hemoglobin (Bld) [Mass/Vol] Hemoglobin [Mass/volume] in Blood 12.0-16.0 [facility] Laboratory - Chemistry and C hemistry - challengeon 05-28-2024 Albumin [Mass/Vol] 3.5 g/dL 3.4-5.0 [facility] ALP [Catalytic activity/Vol] 95 U/L 46-116 [facility] ALT [Catalytic activity/Vol] 23 U/L 14-59 [facility] AST [Catalytic activity/Vol] 13 U/L Low 15-37 [facility] Bilirubin [Mass/Vol] 0.3 mg/dL 0.2-1.0 [facility] Calcium [Mass/Vol] 9.2 mg/dL 8.5-10.1 [facility] Chloride [Moles/Vol] 102 mmol/L 98-107 [facility] Cholesterol [Mass/Vol] 198 mg/dL <=200 [facility] Cholesterol in HDL [Mass/Vol] 46 mg/dL 40-60 [facility] Comment on above: > or =60 mg/dl - LOW CARDIOVASCULAR RISK<40 mg/dl - HIGH CARDIOVASCULAR RISK CO2 [Moles/Vol] 25.5 mmol/L 21.0-32.[address] [facility] Creatinine [Mass/Vol] 0.74 mg/dL 0.55-1.02 [facility] GFR/1.73 sq M.predicted MDRD (S/P/Bld) [Vol rate/Area] mL/min/{1.73_m2} >=60 mL/min/1.73m 2 [facility] Glucose [Mass/Vol] 97 mg/dL 74-106 [facility] Potassium [Moles/Vol] 4.4 mmol/L 3.5-5.1 [facility] Protein [Mass/Vol] 7.3 g/dL 6.4-8.2 [facility] Sodium [Moles/Vol] 138 mmol/L 136-145 [facility] Triglyceride [Mass/Vol] 124 mg/dL <=150 [facility] TSH Qn 3.203 m[IU]/L 0.358-3.740 [facility] Urea nitrogen [Mass/Vol] 8.0 mg/dL 7.0-18.0 [facility] Urea nitrogen/Creatinine [Mass ratio] 10.8 mg/mg [facility] Laboratory - Hematology and Cell countson 05-28-2024 Immature granulocytes/100 WBC (Bld) 0.5 % 0.0-0.5 [facility] Leukocytes [#/volume] correc arnel for nucleated erythrocytes in Blood by Automated counon 05-28-2024 WBC corrected for nucl RBC Auto (Bld) [#/Vol] Leukocytes [#/volume] corrected for nucleated erythrocytes in Blood by Automated coun 4.0-11.0 [facility] Lymphocytes Auto (Bld) [#/Vo l]on 05-28-2024 Lymphocytes (Bld) [#/Vol] Lymphocytes [#/volume] in Blood by Automated count 1.2-3.8 [facility] Lymphocytes/100 WBC Auto (Bl d)on 05-28-2024 Lymphocytes/100 WBC (Bld) Lymphocytes/100 leukocytes in Blood by Automated count 20.5-60.0 [facility] MCH Auto (RBC) [Entitic mass ]on 05-28-2024 MCH (RBC) [Entitic mass] MCH [Entitic mass] by Automated count 26.7-34.0 [facility] MCHC Auto (RBC) [Mass/Vol]on 05-28-2024 MCHC (RBC) [Mass/Vol] MCHC [Mass/volume] by Automated count 29.9-35.2 [facility] MCV Auto (RBC) [Entitic vol] on 05-28-2024 MCV (RBC) [Entitic vol] MCV [Entitic volume] by Automated count 81.0-99.0 [facility] Monocytes Auto (Bld) [#/Vol] on 05-28-2024 Monocytes (Bld) [#/Vol] Automated blood monocyte count 0.3-0.8 [facility] Monocytes/100 WBC Auto (Bld) on 05-28-2024 Monocytes/100 WBC (Bld) Automated monocyte % 1.7-12.0 [facility] Neutrophils Auto (Bld) [#/Vo l]on 05-28-2024 Neutrophils (Bld) [#/Vol] Neutrophils [#/volume] in Blood by Automated count 1.4-6.5 [facility] Neutrophils/100 WBC Auto (Bl d)on 05-28-2024 Neutrophils/100 WBC (Bld) Automated neutrophil % 43.0-75.0 [facility] No Panel Informationon 05-28 Eosinophils # (Auto) 0.2 10 3/uL 0.0-0.7 [facility] Immature Granulocyte # (Auto) 0.05 10 3/uL High 0.00-0.03 [facility] Platelet mean volume Auto (B ld) [Entitic vol]on 05-28-2024 Platelet mean volume (Bld) [Entitic vol] Platelet mean volume [Entitic volume] in Blood by Automated count Low 9.5-13.5 [facility] Platelets Auto (Bld) [#/Vol] on 05-28-2024 Platelets (Bld) [#/Vol] Platelets [#/volume] in Blood by Automated count 150-450 [facility] RBC Auto (Bld) [#/Vol]on RBC (Bld) [#/Vol] Erythrocytes [#/volume] in Blood by Automated count 4.20-5.40 [facility] Serum or plasma albumin/glob ulin mass ratioon 05-28-2024 Albumin/Globulin [Mass ratio] Serum or plasma albumin/globulin mass ratio [facility] Serum or plasma anion gap de terminationon 05-28-2024 Anion gap [Moles/Vol] Serum or plasma anion gap determination [facility] Serum or plasma total choles terol/high density lipoprotein (HDL) cholesterol mass grupo 05-28-2024 Cholesterol.total/Ch olesterol in HDL [Mass ratio] Serum or plasma total cholesterol/high density lipoprotein (HDL) cholesterol mass rat [facility] Comment on above: 3.3 - 4.4 LOW RISK4. 4 - 7.1 AVERAGE RISK7.1 - 11.0 MODERATE RISK>11.0 HIGH RISK Coding Summary.on 08-21-2022 Coding Summary. [id number] Gh0bWw+PGhlYWQ+PE1FV BTgD18chPUuoK2XI6wDV M8GAOECHXIPGE4NDW8uz RN5QSyjT1XropVj DxxunDMbNV11XVj6QEJ0 bUevOBapsI5qqQWhC6y8 BoBrWA53uV90XHxcQPBr SkF1NdNyktgcgBZe L8ikNzZemLDbWzz+PHRh YmxlIHdpZHRoPScxMDAl VcPibNcbGH8mSq5nSINt LWNvbGxhcHNlOiBj r0amBKAsHJfkUV2gkQdl Z7GvaFE0XOJmh6t2Um01 dHI+BTLcPOV9aMveXGfg a155EmKwg9qxOVT3 eNSkRQjjCUJ2B50du0D6 FCJnVOWaWLW7jMA4hT1v fMfjbsbhS5VyrIVmHyF7 PXI9bZIlyY7brUkj jglueZ4gGcg+U53YRM6B GONVIR0KEyk9T0ToXnfl dHI+JS82BLVyHQ74oTQo qTQyw9msaKv4EyXy JJTrYZQ2gIuwGSvea9Zy ILYbT06cnKNdy0C1MVLs cJcupXJjVuKqsBP8pZ2h DNzurdtqw4wspshk Ztpgc7agvl71eF95U94v JLmuWRSdBLQ4AKQtNWLt fRhddy8lmB3mLd9+IDxj r3iul4nkaOk8OeUr NOFnrhRxtRncCBC5j0Qh Gb70I4VnkDrnl0WxKyt0 bo58rOJbn0Q0pKV4LWmx NCTknS4nWYxsTlL1 MTLkBlUbcM19dYIbOVwy Sj5jmJnvuEkrOT8kXAOc zucjCZGlqS1mFSOxmTWz vCfbPT5kHJNaaqbv h586UeBdQOA3ZUXfcXAo O0GgtL4zPhTvELBlXGLs E7OdkTSqRGjxG062YEcw HiV5BWMemsGfA5Eq UUXdlAyoZaX6a1K2Ou2V k9BvwojqDSF6EJkzOSZd NeZ1OmIcHvI1V7AyEwn5 FYSwbAiwGS1bO9Gd MTBybgsgibamrNV8FNHd QRAmmC81rTQkNYvbHh3m e7N8j358MTAjHLQftG54 Cw0dsSmhOBNfeNOG rK3lptuye8jahgkuPtRb AJXrRIq8EQc1IQDqrHoc UrIpPTW8UyO9DNN8jKSm kO8pnNdjayygdC0y Oyc+C56fcJ8uGJZ7AGX3 xumpFKFcejXwAH37VP07 U2PiYaasyBPfjWJ+PGRp loJijWutSJ8oJaLe k5nwt9XxCEoeU2JoAOMi PRvzBtz6XCXhEVY8qVR8 qZ4aRJIgVFfwe2T1rLB4 J6NqrnKqdt4yb9lq DASsSTubC31ntJDur8X9 LVAdvMY9MVEcdDokLzDf bR44Gim+GAFzzScyj8Gb Tgrps4dce9lwwIj0 IjMwJSIgdmFsaWduPSJ0 f1CaYa02Y59rZOmzOWUg FKCxMWFjGZCheLilja8y uE9yUp7+PGNvbCB3 mKT6gE1zTNKsRzG4LRtr L098YlLoxHXeCtpwz7bf v4kwmYa3IbQgZHTcleDc iZkaPLR6z5QeYy75 W72pQZqlXXHrJGMkOSVd GPWvkGqdun4gyC0zSl5+ ON5co9icbo11pN98dTA+ INJdPXJ3lLqaHFtq BJZvmA8dPPclBgG7OFBg VjMygG19vXPxECxlLl0r gMecgPxhUP2fRPGucunv m036NbNdj1toWBLn wBFnIYgiRRY7T20de5Y7 DXJlCZMjDRT5uPV1kG4e bGlnbjogbGVmdDsgdmVy fNjfGHlhQBvpP065 IHRvcDsnPlBhdGllbnQg MvVcLUd0R3AeFvj7YLNs fChyTD5dkFFdTBtaNv7p aNwmkTabXT0lWJUx jhqxj483GrMfs8kcHJAt hQIwLJwrYTU9C89aw6T2 AAOzGVQdFXZ6aNO5fC4x bGlnbjogbGVmdDsg pfAzlXosOKfzBYctO892 IHRvcDsnPkJpcnRoIERh dQX3UN96KF15eDRkg7V3 hNI2Q8QjQNSwwudr ooztiMG8REEzWFJfvX12 Tm4kmFmuKj8xFESiUTG7 QZIjiZEfA5BosM3fDpCs BSBaPPQxF8ZnjRTc PIhkO395NOfvYjW0PQMc loHqV1WfKFYasDwcDhI2 i7O0Pa8MQ6C9SN47JK23 nEWga6Y1wVX9J1Xo IDCmcjlkkxhodYJ9QJMb OUXbbX68Bf1asEuqPw6o CHMfTCO2MTYxyDTgR3Mn bN2kAbRrUNRnIZXl C8YgaJNlWSjiA620MKsq JfU9UQZccoSpB3MwSAVv rQyyStU4x0I7Ra2EKCb2 JH22UF17sGUgv6T6 zQH6A1FsNPNbbezkjrsu qNA1NDNgGPJrjW92Sd9j qOrqQn7yXUSaJBK5EYSy xMCaK4VrgP8gIkUn FTPzZVIoG3KzmBXbTChq R156VRopKxL3XPCnbnEc H6CwJSVveGaoNgR0r9A0 Pn1HSPIdES02DMI1 gOD9RU74RI51Z8EdUnco dGFibGU+PHRhYmxlIHdp ZHRoPScxMDAlJyBzdHls RR8iFg9pPHVgSGDv oNtyzBCpImOne3nuJOPj WNumIY7wsMiaD7XjgUZ9 CKOwn2z5Fd28W96rY7Vl dXA+DZBfoKR3nYY6 cN1nGlHfBeE8GKqkJ822 EqNalYVaGdroy0arj4wm pHx0QcF8QEJlyjCmpTge LLS9p4RwPt59V29e IHdpZHRoPSIxNSUiIHZh lJdmew4rlY0hWq3+PGNv zSX6sPB0zI9uQjOpSpZ1 YAytO997SuXgrAYt Pdsoy4fdc9ukxUf7DuDb MIAaibIrcWqnKEH7b2Rc Yi79F3HhyGxgz3TdVzy4 dk38iJIyk0X5mPP3 Z3LoXISgoitwjYPgjAdg QV4zRHEngqpzQZEgwG8i JLPoU1d2TvJpOjM7KLko Y3VcunJ0ALXozUCt MQtqHJN6C80kv6C0TPWz JGSrBCY6iLQ9fA4fbBvh bjogbGVmdDsgdmVydGlj VIxaSEpcE068CAYp bOejMFIxaD6xYOUryMWy oRlbTE9xEJGvfkziAyWV E4XvIEiMLMPLZqvGAF19 C9TkRbf4AQSqnSdc CQ8nnVXjNStxUm3byWga rZsgPF3iMBGwxwzkLJCz tA7uROSinRVvcTtqBA9e JUVkjqnuy240BwEz MSX5GBMncLKxE4ZkiN1s HqTuCINdZWRyI2JzySPo UOoyP742KFjxSvM7BZGb zfIjW4OzEAHwtElb ImC7k8P2Sx3bXq7iIN3s SRkfZA14GV88jRWdm8P1 hDD4W2WeXBVooufxautn qJD0RBQgOVTgwZ78 uCSiIGkuLq2oz0H6g631 WONzLLBbbQ77Wn2olSxt SZGibZHYzU6adzurn4sp cjogIzAwMDAwMDt0 KAk7XWJbrUaoZqBwFVU7 YkD5XPC9jPAmsZ9siVpx acggqM7mPpd+MzkgWWVh jfK0T0CuWfw7AHIo bQuxFF1yqSLuBNtkBn5a pFgzxUcxWN8sDTItotah POSrxG0kHAPdbIVvkXsk QG2jCKAhuqfmq801 JlMcQSW3SKArpDGyZ2Zz fB8pDaNkFASmCRIqA5Gs hQFiKVneL538VJifPdE0 GKEvhpQnO0MnYYEi wUlzNmI1w2H6Kd9FNT5z bIA0G1DeZbz4XXJxdFph KE1nkTGxCPggBf5ziIdc tXxgXF5wGDQujleu ZMOnqL7gJLQguDZygIta ZN8pPABipanmh824VvYf QXZ4HBUqrLLgW9TgdL0n EjScZVNeFCMvK6Sj fTHcCCrqU473VJgbYuC5 DZFppjJkT7XxRHFhtLur PlK4h4N5Hq8IQGSnLXPh gDExGlH8O0LgYysv dHI+ST46YKQtHN90lWDc aMYtk5zcnJp0VhTfMEBd DRN2iVtvFCjlb7OqKQYl J74cmFHkl4Y7OUDx jKpruDJfRxTujBP0gU4n ANgepayon3upfcehNtmj k5kouq38iE71D55uFRpk ZHRoPSIzMCUiIHZh vDsctt7ljW2xMm4+PGNv pIW2lZM3wK1yAsXlJdY2 AOjmS322YvRbpMGpXmhf j0eja8oyfAc6DfAm VAItvtQdhCjrWOA2t0Gq Zs75L39lKIplYOEnPNSt UXYgQYUvqVoslf6woR2d Ii8+GG2fj7afeb65 rS19mPG+QGLhJCS2kLje EBqhKKGthX2pWDgaRnY2 DYBeQqWvvV33uBQiOLkg Wf5akMzzqZbhHG3q HGRpjwgxu632TxIxp3ia OACbfLGnWWexLEL2C35j s2P1NCIgFDUdBMH1kAX9 vN1otSjyjybyqXUd dDsgdmVydGljYWwtYWxp F947UFOahFhxLaOrkQFx V8wzxvNBDK3qDbpgfJM+ PBVkKGT9bTbzUEfd MEIyuQ3cKDBlJ7a9RhZv VzE6MWveQ2GpblG4MIWx aRBbKNDwoCPIrZ3nasiv a8fxuyfkYpJcVOJs FJj5LYm1AIGlfAnaEdKz TLM2MbO0TJW0pZDnzS3a jJthqrcjbA3pBwo+RklO OjwvdGQ+PHRkIHN0 cFjqHBaqHAYorD0rRMHh S9f5YwMgKvD9XOzlQ4Ev wcH1EAKakCDnBBJldDVJ hX5jukcwu5xgjzeb WjYdMNKbGCk4WIh9GVHq cOefIsJbWZN1QsJ0RLF0 vSPitJ3rwOkcndqrpL8y Oyc+TVJOOjwvdGQ+ JKHaXCD3vGogWYhrJIWd pL4iFEZbF2a1ErYmYrM4 OZgvY1LllbD2UZMqvVDz AMIcbDABoC2ybphz o2cuvbghJlIiYAIpFGj7 DJh5UGDrdKsqHeUoNPY5 BwG0VHT5nUObkG2xqLue ggqvhM9wGav+UGF5 OLS5WY36SO29M4TpLjjr dGFibGU+PHRhYmxlIHdp ZHRoPScxMDAlJyBzdHls PX1uSi4wIYFiMHXl bGxh (more content not included)... [facility] Physician Orderon 08-17-2022 Physician Order [id number] #[id number]:127 [facility] XR knee RT 3Von 03-14-2022 XR knee RT 3V [facility] [employer] Other XR knee RT 3V [facility] [employer] Other XR knee RT 3V [address] [facility] [employer] Other XR knee [place] [address] [address] [facility] [employer] Other XR knee RT 3V XRay Report [employer] Other XR knee RT 3V Signed [employer] Other XR knee RT 3V Patient: Leandro Heaton MR#: [id number] [facility] [employer] Other XR knee RT 3V 512 [employer] Other XR knee RT 3V : 1985 Acct:[id number] [employer] Other XR knee RT 3V Age/Sex: 37 / F ADM Date: 03/14/22 [employer] Other XR knee RT 3V Loc: [facility] Room: Type: [facility] [employer] Other XR knee RT 3V Attending Dr: Amira Sewell DO [employer] Other XR knee RT 3V Copies to: Amira Sewell DO [employer] Other XR knee RT 3V Ordering Provider: Amira Sewell DO [employer] Other XR knee RT 3V Date of Service: 03/14/22 [employer] Other XR knee RT 3V XR/XR knee RT 3V - NOT FOR ER USE: Acute pain of right knee [employer] Other XR knee RT 3V RIGHT KNEE - 3 views N [employer] Other XR knee RT 3V COMPARISON: None [employer] Other XR knee RT 3V CLINICAL DATA: Chronic right knee pain with radiation up and down the leg. No recent injury. [employer] Other XR knee RT 3V Standing AP, lateral and patellar views were obtained. There is no acute fracture or dislocation. [employer] Other XR knee RT 3V There is moderate lateral subluxation of the patella on both sides, right worse than left. There is [employer] Other XR knee RT 3V no disproportionate joint space narrowing or prominent hypertrophy. There is a trace amount of joint [employer] Other XR knee RT 3V fluid. The soft tissues are diffusely prominent related to body habitus. [employer] Other XR knee RT 3V XR/XR knee RT 3V - NOT FOR ER USE [employer] Other XR knee RT 3V IMPRESSION: [employer] Other XR knee RT 3V BILATERAL PATELLAR SUBLUXATION. [employer] Other XR knee RT 3V NO ACUTE BONY FINDINGS. [employer] Other XR knee RT 3V Impression dictated by: Melissa Gomez M.D.03/14/2022 4:39 PM [employer] Other XR knee RT 3V Dictation Location: [place] [address] [employer] Other XR knee RT 3V Transcribed By: PWS 03/14/22 [facility]9 [employer] Other XR knee RT 3V Dictated By: Melissa Gomez MD 03/14/22 [facility]7 [employer] Other XR knee RT 3V Signed By: [employer] Other XR knee RT 3V 03/14/22 1639 [employer] Other CBC AUTO DIFFon 03-12-2022 BASO # 0.0 103/ul Normal 0.0-0.1 [facility] Comment on above: Performed By: #### C BC #### [facility] [address] [address] [address] Harshal Michaels Basophils/100 WBC (Bld) 0.3 % Normal 0.2-2.0 [facility] Comment on above: Performed By: #### C BC #### [facility] [address] [address] [address] Harshal Michaels EO # 0.2 103/ul Normal 0.0-0.7 [facility] Comment on above: Performed By: #### C BC #### [facility] [address] [place] [address] Dr. Harshal Michaels Eosinophils/100 WBC (Bld) 1.4 % Normal 0.9-7.0 [facility] Comment on above: Performed By: #### C BC #### [facility] [address] [place] [address] Dr. Harshal Michaels Erythrocyte distribution width (RBC) [Ratio] 13.6 % Normal 11.0-15.0 [facility] Comment on above: Performed By: #### C BC #### [facility] [address] [place] [address] Dr. Harshal Michaels Hematocrit (Bld) [Volume fraction] 40.6 % Normal 36.0-48.0 [facility] Comment on above: Performed By: #### C BC #### [facility] [address] [place] [address] Dr. Harshal Michaels Hemoglobin (Bld) [Mass/Vol] 13.3 g/dL Normal 12.0-16.0 [facility] Comment on above: Performed By: #### C BC #### [facility] [address] [place] [address] Dr. Harshal Michaels IG # 0.06 10e3/ul Critically high 0.00-0.03 [facility] Comment on above: Performed By: #### C BC #### [facility] [address] [place] [address] Dr. Harshal Michaels IG % 0.5 % Normal 0.0-0.5 [facility] Comment on above: Performed By: #### C BC #### [facility] [address] [place] [address] Dr. Harshal Michaels LYMPH # 2.0 103/ul Normal 1.2-3.8 [facility] Comment on above: Performed By: #### C BC #### [facility] [address] [place] [address] Dr. Harshal Michaels Lymphocytes/100 WBC (Bld) 18.2 % Critically low 20.5-60.0 [facility] Comment on above: Performed By: #### C BC #### [facility] [address] [place] [address] Dr. Harshal Michaels MANUAL DIFF REQ NO Normal [facility] Comment on above: Performed By: #### C BC #### [facility] [address] [place] [address] Dr. Harshal Michaels MCH (RBC) [Entitic mass] 27.2 pg Normal 26.7-34.0 [facility] Comment on above: Performed By: #### C BC #### [facility] [address] [place] [address] Dr. Harshal Michaels MCHC (RBC) [Mass/Vol] 32.8 g/dL Normal 29.9-35.2 [facility] Comment on above: Performed By: #### C BC #### [facility] [address] [place] [address] Dr. Harshal Michaels MCV (RBC) [Entitic vol] 83.0 fL Normal 81.0-99.0 [facility] Comment on above: Performed By: #### C BC #### [facility] [address] [place] [address] Dr. Harshal Michaels MONO # 0.7 103/ul Normal 0.3-0.8 [facility] Comment on above: Performed By: #### C BC #### [facility] [address] [place] [address] Dr. Harshal Michaels Monocytes/100 WBC (Bld) 6.1 % Normal 1.7-12.0 [facility] Comment on above: Performed By: #### C BC #### [facility] [address] [place] [address] Dr. Harshal Michaels NEUT # 8.1 103/ul Critically high 1.4-6.5 [facility] Comment on above: Performed By: #### C BC #### [facility] [address] [place] [address] Dr. Harshal Michaels Neutrophils/100 WBC (Bld) 73.5 % Normal 43.0-75.0 [facility] Comment on above: Performed By: #### C BC #### [facility] [address] [place] [address] Dr. Harshal Michaels Platelet mean volume (Bld) [Entitic vol] 8.2 fL Critically low 9.5-13.5 [facility] Comment on above: Performed By: #### C BC #### [facility] [address] [place] [address] Dr. Harshal Michaels PLT 374 103/ul Normal 150-450 [facility] Comment on above: Performed By: #### C BC #### [facility] [address] [place] [address] Dr. Harshal Michaels RBC 4.89 106/ul Normal 4.20-5.40 [facility] Comment on above: Performed By: #### C BC #### [facility] [address] [place] [address] Dr. Harshal Michaels WBC 11.1 103/ul Critically high 4.0-11.0 [facility] Comment on above: Performed By: #### C BC #### [facility] [address] [place] [address] Dr. Harshal Michaels LIPID PROFILEon 03-12-2022 CHOL-HDL RATIO NORM SEE BELOW Normal [facility] Comment on above: Result Comment: 3.3 - 4.4 LOW RISK 4.4 - 7.1 AVERAGE RISK 7.1 - 11.0 MODERATE RISK >11.0 HIGH RISK Performed By: #### C MP, LIPID #### [facility] [address] [address] [address] Harshal Michaels Cholesterol [Mass/Vol] 176 mg/dL Normal <=200 [facility] Comment on above: Performed By: #### C MP, LIPID #### [facility] [address] [address] [address] Harshal Michaels Cholesterol in HDL [Mass/Vol] 40 mg/dL Normal 40-60 [facility] Comment on above: Performed By: #### C MP, LIPID #### [facility] [address] [address] [address] Harshal Michaels Cholesterol in LDL [Mass/Vol] 115.6 mg/dL Normal [facility] Comment on above: Performed By: #### C MP, LIPID #### [facility] [address] [place] [address] Dr. Harshal Michaels Cholesterol.total/Ch olesterol in HDL [Mass ratio] 4.4 {ratio} Normal [facility] Comment on above: Performed By: #### C MP, LIPID #### [facility] [address] [place] [address] Dr. Harshal Michaels HDL NORMAL > or = 60 mg/dl - LOW CARDIOVASCULAR RISK <40 mg/dl - HIGH CARDIOVASCULAR RISK Normal [facility] Comment on above: Performed By: #### C MP, LIPID #### [facility] [address] [address] [address] Harshal Michaels LDL CALC NORMAL SEE BELOW Normal [facility] Comment on above: Result Comment: <100 mg/dl OPTIMAL 100 - 129 mg/dl NEAR OR ABOVE OPTIMAL 130 - 159 mg/dl BORDERLINE HIGH 160 - 189 mg/dl HIGH >190 mg/dl VERY HIGH Performed By: #### C MP, LIPID #### [facility] [address] [address] [address] Harshal Michaels Triglyceride [Mass/Vol] 102 mg/dL Normal <=150 [facility] Comment on above: Performed By: #### C MP, LIPID #### [facility] [address] [address] [address] Harshal Michaels VLDL CALC 20.4 mg/dL Normal [facility] Comment on above: Performed By: #### C MP, LIPID #### [facility] [address] [address] [address] Harshal Michaels PROF 14(COMP METB)on 022 Albumin [Mass/Vol] 3.5 g/dL Normal 3.4-5.0 [facility] Comment on above: Performed By: #### C MP, LIPID #### [facility] [address] [place] [address] Dr. Harshal Michaels Albumin/Globulin [Mass ratio] 0.9 {ratio} Normal [facility] Comment on above: Performed By: #### C MP, LIPID #### [facility] [address] [place] [address] Dr. Harshal Michaels ALP [Catalytic activity/Vol] 99 U/L Normal 46-116 [facility] Comment on above: Performed By: #### C MP, LIPID #### [facility] [address] [place] [address] Dr. Harshal Michaels ALT [Catalytic activity/Vol] 25 U/L Normal 14-59 [facility] Comment on above: Performed By: #### C MP, LIPID #### [facility] [address] [place] [address] Dr. Harshal Michaels Anion gap [Moles/Vol] 12.1 mmol/L Normal [facility] Comment on above: Performed By: #### C MP, LIPID #### [facility] [address] [place] [address] Dr. Harshal Michaels AST [Catalytic activity/Vol] 13 U/L Critically low 15-37 [facility] Comment on above: Performed By: #### C MP, LIPID #### [facility] [address] [place] [address] Dr. Harshal Michaels Bilirubin [Mass/Vol] 0.3 mg/dL Normal 0.2-1.0 [facility] Comment on above: Performed By: #### C MP, LIPID #### [facility] [address] [place] [address] Dr. Harshal Michaels Calcium [Mass/Vol] 8.8 mg/dL Normal 8.5-10.1 [facility] Comment on above: Performed By: #### C MP, LIPID #### [facility] [address] [address] [address] Harshal Michaels Chloride [Moles/Vol] 102 mmol/L Normal 98-107 [facility] Comment on above: Performed By: #### C MP, LIPID #### [facility] [address] [address] [address] Harshal Michaels CO2 [Moles/Vol] 27.1 mmol/L Normal 21.0-32.0 [facility] Comment on above: Performed By: #### C MP, LIPID #### [facility] [address] [address] [address] Harshal Michaels Creatinine [Mass/Vol] 0.57 mg/dL Normal 0.55-1.02 [facility] Comment on above: Performed By: #### C MP, LIPID #### [facility] [address] [place] [address] Dr. Harshal Michaels EGFR-AF EQUATORIAL GUINEAN >60 Normal >=60 [facility] Comment on above: Performed By: #### C MP, LIPID #### [facility] [address] [address] [address] Harshal Michaels EGFR-NON AF EQUATORIAL GUINEAN >60 Normal >=60 [facility] Comment on above: Performed By: #### C MP, LIPID #### [facility] [address] [address] [address] Harshal Michaels Globulin (S) [Mass/Vol] 3.8 g/dL Normal [facility] Comment on above: Performed By: #### C MP, LIPID #### [facility] [address] [place] [address] Dr. Harshal Michaels Glucose [Mass/Vol] 111 mg/dL Critically high 74-106 [facility] Comment on above: Performed By: #### C MP, LIPID #### [facility] [address] [address] [address] Harshal Michaels Potassium [Moles/Vol] 4.2 mmol/L Normal 3.5-5.1 [facility] Comment on above: Performed By: #### C MP, LIPID #### [facility] [address] [address] [address] Harshal Michaels Protein [Mass/Vol] 7.3 g/dL Normal 6.4-8.2 [facility] Comment on above: Performed By: #### C MP, LIPID #### [facility] [address] [address] [address] Harshal Michaels Sodium [Moles/Vol] 137 mmol/L Normal 136-145 [facility] Comment on above: Performed By: #### C MP, LIPID #### [facility] [address] [address] [address] Harshal Michaels Urea nitrogen [Mass/Vol] 8.0 mg/dL Normal 7.0-18.0 [facility] Comment on above: Performed By: #### C MP, LIPID #### [facility] [address] [address] [address] Harshal Michaels Urea nitrogen/Creatinine [Mass ratio] 14.0 mg/mg Normal [facility] Comment on above: Performed By: #### C MP, LIPID #### [facility] [address] [address] [address] Harshal Michaels [facility]12 SARS-CoV-2 (COVID-19) RNA PACHECO+probe Ql (Unsp spec) Not detected Normal NOT DETECTED [facility] Comment on above: Result Comment: This test is not yet approved or cleared by the [place] FDA. When there are no FDA-approved or cleared tests available, and other criteria are met, FDA can make tests available under an emergency access mechanism called an Emergency Use Authorization (EUA). The EUA for this test is supported by the [place] of Health and Human Service's (HHS's) declaration that circumstances exist to justify the emergency use of in vitro diagnostics for the detection and/or diagnosis of the virus that causes COVID-19. This EUA will remain in effect (meaning this test can be used) for the duration of the COVID-19 declaration justifying emergency of IVDs, unless it is terminated or revoked by FDA (after which the test may no longer be used). When diagnostic testing is negative, the possibility of a false negative should be considered in the context of a patient's recent exposures and the presence of clinical signs and symptoms consistent with SARS-CoV-2. Performed By: #### C VDTBH #### [facility] [address] [place] [address] Dr. Harshal Michaels GROUP A STREP CULTUREon 02-12 S. pyogenes Ag Ql (Unsp spec) Culture Observations: NEGATIVE FOR GROUP A STREPTOCOCCUS. Normal [facility] Comment on above: Performed By: #### S SCRN, GRASTCX #### [facility] [address] [place] [address] Dr. Harshal Michaels STREPT SCREENon 03-02-2022 STREP SCREEN A Negative Normal NEGATIVE [facility] Comment on above: Performed By: #### S SCRN, GRASTCX #### [facility] [address] [place] [address] Dr. Harshal Michaels PAP ACOG PANEL 2: 30 to 65on 02-27-2022 . . Normal [facility] Comment on above: Result Comment: Perf ormed at: WB Performed By: #### [id number] #### [facility] [address] [place] [address] Dr. Harshal Michaels Age Gdln ACOG Testing - [facility] Comment on above: Performed By: #### [id number] #### [facility] [address] [place] [address] Dr. Harshal Michaels DIAGNOSIS: Comment Normal [facility] Comment on above: Result Comment: NEGA TIVE FOR INTRAEPITHELIAL LESION OR MALIGNANCY. Performed at: WB Performed By: #### [id number] #### [facility] [address] [place] [address] Dr. Harshal Michaels HPV Aptima Negative Normal [facility] Comment on above: Result Comment: This nucleic acid amplification test detects fourteen high-risk HPV types (16,18,31,33,35,39,45,51,52,56,58,59,66,68) without differentiation. Performed at: =G Performed By: #### [id number] #### [facility] [address] [place] [address] Dr. Harshal Michaels Methodology: Comment Normal [facility] Comment on above: Result Comment: This liquid based ThinPrep(R) pap test was screened with the use of an image guided system. Performed at: WB Performed By: #### [id number] #### [facility] [address] [place] [address] Dr. Harshal Michaels Note: Comment Normal [facility] Comment on above: Result Comment: The Pap smear is a screening test designed to aid in the detection of premalignant and malignant conditions of the uterine cervix. It is not a diagnostic procedure and should not be used as the sole means of detecting cervical cancer. Both false-positive and false-negative reports do occur. . Performed at: WB Performed By: #### [id number] #### [facility] [address] [place] [address] Dr. Harshal Michaels Performed by: Comment Normal [facility] Comment on above: Result Comment: Yobani Caputo, Polystyrene Bead Molder (ASCP) Performed at: WB Performed By: #### [id number] #### [facility] [address] [place] [address] Dr. Harshal Michaels Specimen adequacy: Comment Normal [facility] Comment on above: Result Comment: Sati sfactory for evaluation. No endocervical component is identified. Performed at: WB Performed By: #### [id number] #### [facility] [address] [place] [address] Dr. Harshal Michaels MG MAMM DIAGNOSTIC 3D ROGE CA Don 01-12-2022 MG MAMM DIAGNOSTIC 3D ROGE CAD Patient: LEANDRO HEATON Exam Date: 01/12/2022 : 1985 Gender:F Ordering : DR WENDY ADDISON M.D. Admission #: [id number] Family : Order #: [id number] CLICK HERE TO VIEW EXAM RADIOLOGY REPORT PROCEDURE: MAMMOGRAM DIAGNOSTIC 3D BILATERAL CAD, 01/12/2022, 13:54 ULTRASOUND BREAST LEFT LIMITED, 01/12/2022, 14:35 COMPARISON: MAMMO ROGE DIAG DIG, 12/01/2010. INDICATIONS: Lump in left breast Calculator Name NCI Breast Cancer Risk Assessment Tool 5 Year Breast Cancer Risk Not Reported. Lifetime Breast Cancer Risk Not Reported. Personal Breast Cancer No Personal Ovarian Cancer No Treatments None Family Cancers None LOCATION: [facility] BREAST COMPOSITION: Almost entirely fatty. FINDINGS: DIAGNOSTIC CATEGORY 2--BENIGN FINDING: RIGHT BREAST: No significant suspicious finding. LEFT BREAST: No significant suspicious finding. To triangle markers lower inner quadrant indicate palpable masses. No mammographic or ultrasound abnormality. Further evaluation should be based on clinical exam. RECOMMENDATIONS: CLINICAL EVALUATION. PLEASE NOTE: A NORMAL MAMMOGRAM DOES NOT EXCLUDE THE POSSIBILITY OF BREAST CANCER. A CLINICALLY SUSPICIOUS PALPABLE LUMP SHOULD BE BIOPSIED. Dictated by: Servando Edwards MD on 01/12/2022 at 14:52 Approved by: Servando Edwards MD on 01/12/2022 at 14:54 Normal [facility] US BREAST LEFT LIMITEDon US BREAST LEFT LIMITED Patient: LEANDRO HEATON Exam Date: 01/12/2022 : 1985 Gender:F Ordering : DR WENDY ADDISON M.D. Admission #: [id number] Family : Order #: [id number] CLICK HERE TO VIEW EXAM RADIOLOGY REPORT PROCEDURE: MAMMOGRAM DIAGNOSTIC 3D BILATERAL CAD, 01/12/2022, 13:54 ULTRASOUND BREAST LEFT LIMITED, 01/12/2022, 14:35 COMPARISON: MAMMO ROGE DIAG DIG, 12/01/2010. INDICATIONS: Lump in left breast Calculator Name NCI Breast Cancer Risk Assessment Tool 5 Year Breast Cancer Risk Not Reported. Lifetime Breast Cancer Risk Not Reported. Personal Breast Cancer No Personal Ovarian Cancer No Treatments None Family Cancers None LOCATION: [facility] BREAST COMPOSITION: Almost entirely fatty. FINDINGS: DIAGNOSTIC CATEGORY 2--BENIGN FINDING: RIGHT BREAST: No significant suspicious finding. LEFT BREAST: No significant suspicious finding. To triangle markers lower inner quadrant indicate palpable masses. No mammographic or ultrasound abnormality. Further evaluation should be based on clinical exam. RECOMMENDATIONS: CLINICAL EVALUATION. PLEASE NOTE: A NORMAL MAMMOGRAM DOES NOT EXCLUDE THE POSSIBILITY OF BREAST CANCER. A CLINICALLY SUSPICIOUS PALPABLE LUMP SHOULD BE BIOPSIED. Dictated by: Servando Edwards MD on 01/12/2022 at 14:52 Approved by: Servando Edwards MD on 01/12/2022 at 14:54 Normal [facility]on SARS-CoV-2 (COVID-19) RNA PACHECO+probe Ql (Unsp spec) Not detected Normal NOT DETECTED [facility] Comment on above: Result Comment: This test is not yet approved or cleared by the [place] FDA. When there are no FDA-approved or cleared tests available, and other criteria are met, FDA can make tests available under an emergency access mechanism called an Emergency Use Authorization (EUA). The EUA for this test is supported by the [place] of Health and Human Service's (HHS's) declaration that circumstances exist to justify the emergency use of in vitro diagnostics for the detection and/or diagnosis of the virus that causes COVID-19. This EUA will remain in effect (meaning this test can be used) for the duration of the COVID-19 declaration justifying emergency of IVDs, unless it is terminated or revoked by FDA (after which the test may no longer be used). When diagnostic testing is negative, the possibility of a false negative should be considered in the context of a patient's recent exposures and the presence of clinical signs and symptoms consistent with SARS-CoV-2. Performed By: #### C [facility] #### [facility] [address] [place] [address] Dr. Harshal Michaels Vital Signs Date Time Vital Sign Value Performing Clinician Facility 11-16-2024 13:18-0400 Body height 162.56 cm [facility] 11-16-2024 13:18-0400 Body mass index (BMI) [Ratio] 52.3 kg/m2 [facility] 11-16-2024 13:18-0400 Body weight 138.34 kg [facility] 11-16-2024 13:18-0400 Diastolic blood pressure 93 mm[Hg] [facility] 11-16-2024 13:18-0400 Heart rate 84 /min [facility] 11-16-2024 13:18-0400 Systolic blood pressure 150 mm[Hg] [facility] 09-10-2024 13:47-0500 Body height 162.56 cm Wendy Addison MD Work Phone: [facility] 09-10-2024 13:47-0500 Body mass index (BMI) [Ratio] 53 kg/m2 Wendy Addison MD Work Phone: [facility] 09-10-2024 13:47-0500 Body weight 140.16 kg Wendy Addison MD Work Phone: [facility] 09-10-2024 13:47-0500 Diastolic blood pressure 85 mm[Hg] Wendy Addison MD Work Phone: [facility] 09-10-2024 13:47-0500 Heart rate 87 /min Wendy Addison MD Work Phone: [facility] 09-10-2024 13:47-0500 Systolic blood pressure 128 mm[Hg] Wendy Addison MD Work Phone: [facility] 08-11-2024 09:28-0500 Body height 162.56 cm Wendy Addison MD Work Phone: [facility] 08-11-2024 09:28-0500 Body mass index (BMI) [Ratio] 53.4 kg/m2 Wendy Addison MD Work Phone: [facility] 08-11-2024 09:28-0500 Body temperature 98.9 [degF] Wendy Addison MD Work Phone: [facility] 08-11-2024 09:28-0500 Body weight 141.29 kg Wendy Addison MD Work Phone: [facility] 08-11-2024 09:28-0500 Diastolic blood pressure 88 mm[Hg] Wendy Addison MD Work Phone: [facility] 08-11-2024 09:28-0500 Heart rate 108 /min Wendy Addison MD Work Phone: [facility] 08-11-2024 09:28-0500 SaO2% (BldA) [Mass fraction] 97 % Wendy Addison MD Work Phone: [facility] 08-11-2024 09:28-0500 Systolic blood pressure 138 mm[Hg] Wendy Addison MD Work Phone: [facility] 08-01-2024 10:34-0500 Body height 162.56 cm Wendy Addison MD Work Phone: [facility] 08-01-2024 10:34-0500 Body mass index (BMI) [Ratio] 53.7 kg/m2 Wendy Addison MD Work Phone: [facility] 08-01-2024 10:34-0500 Body temperature 98 [degF] Wendy Addison MD Work Phone: [facility] 08-01-2024 10:34-0500 Body weight 141.97 kg Wendy Addison MD Work Phone: [facility] 08-01-2024 10:34-0500 Diastolic blood pressure 88 mm[Hg] Wendy Addison MD Work Phone: [facility] 08-01-2024 10:34-0500 Heart rate 78 /min Wendy Addison MD Work Phone: [facility] 08-01-2024 10:34-0500 Respiratory rate 16 /min Wendy Addison MD Work Phone: [facility] 08-01-2024 10:34-0500 SaO2% (BldA) [Mass fraction] 95 % Wendy Addison MD Work Phone: [facility] 08-01-2024 10:34-0500 Systolic blood pressure 135 mm[Hg] Wendy Addison MD Work Phone: [facility] 06-23-2024 11:03-0500 Diastolic blood pressure 84 mm[Hg] Wendy Addison MD Work Phone: [facility] 06-23-2024 11:03-0500 Heart rate 78 /min Wendy Addison MD Work Phone: [facility] 06-23-2024 11:03-0500 Respiratory rate 16 /min Wendy Addison MD Work Phone: [facility] 06-23-2024 11:03-0500 SaO2% (BldA) [Mass fraction] 98 % Wendy Addison MD Work Phone: [facility] 06-23-2024 11:03-0500 Systolic blood pressure 130 mm[Hg] Wendy Addison MD Work Phone: [facility] 06-23-2024 09:48-0500 Body height 162.56 cm Wendy Addison MD Work Phone: [facility] 06-23-2024 09:48-0500 Body weight 136.08 kg Wendy Addison MD Work Phone: [facility] 05-19-2024 14:33-0500 Body height 162.56 cm [facility] 05-19-2024 14:33-0500 Body mass index (BMI) [Ratio] 53.1 kg/m2 [facility] 05-19-2024 14:33-0500 Body weight 140.61 kg [facility] 05-19-2024 14:33-0500 Diastolic blood pressure 85 mm[Hg] [facility] 05-19-2024 14:33-0500 Heart rate 98 /min [facility] 05-19-2024 14:33-0500 Systolic blood pressure 132 mm[Hg] [facility] 01-24-2024 14:17-0400 Body height 162.56 cm [facility] 01-24-2024 14:17-0400 Body mass index (BMI) [Ratio] 52.3 kg/m2 [facility] 01-24-2024 14:17-0400 Body weight 138.34 kg [facility] 01-24-2024 14:17-0400 Diastolic blood pressure 87 mm[Hg] [facility] 01-24-2024 14:17-0400 Heart rate 71 /min [facility] 01-24-2024 14:17-0400 Systolic blood pressure 121 mm[Hg] [facility] 08-13-2023 15:00-0500 Body height 162.56 cm Wendy Addison Other [employer] Other 08-13-2023 15:00-0500 Body mass index (BMI) [Ratio] 52.52 kg/m2 Wendy Addison Other [employer] Other 08-13-2023 15:00-0500 Body weight 138.8 kg Wendy Addison Other [employer] Other 08-13-2023 15:00-0500 Diastolic blood pressure 85 mm[Hg] Wendy Addison Other [employer] Other 08-13-2023 15:00-0500 Systolic blood pressure 137 mm[Hg] Wendy Addison Other [employer] Other 07-02-2023 07:30-0500 Diastolic blood pressure 87 mm[Hg] MD Wendy Addison Work Phone: [facility] 07-02-2023 07:30-0500 Heart rate 65 /min MD Wendy Addison Work Phone: [facility] 07-02-2023 07:30-0500 Respiratory rate 16 /min MD Wendy Addison Work Phone: [facility] 07-02-2023 07:30-0500 SaO2% (BldA) [Mass fraction] 96 % MD Wendy Addison Work Phone: [facility] 07-02-2023 07:30-0500 Systolic blood pressure 131 mm[Hg] MD Wendy Addison Work Phone: [facility] 07-02-2023 06:14-0500 Body height 162.56 cm MD Wendy Addison Work Phone: [facility] 07-02-2023 06:14-0500 Body temperature 98.4 [degF] MD Wendy Addison Work Phone: [facility] 07-02-2023 06:14-0500 Body weight 136.07 kg MD Wendy Addison Work Phone: [facility] 06-04-2023 10:45-0500 Body height 162.56 cm Wendy Addison Other [employer] Other 06-04-2023 10:45-0500 Body mass index (BMI) [Ratio] 51.9 kg/m2 Wendy Addison Other [employer] Other 06-04-2023 10:45-0500 Body weight 137.17 kg Wendy Addison Other [facility] Other 06-04-2023 10:45-0500 Diastolic blood pressure 94 mm[Hg] Wendy Addison Other [employer] Other 06-04-2023 10:45-0500 Systolic blood pressure 140 mm[Hg] Wendy Addison Other [employer] Other 02-25-2023 14:00-0400 Body height 162.56 cm Wendy Addison Other [employer] Other 02-25-2023 14:00-0400 Body mass index (BMI) [Ratio] 52 kg/m2 Wendy Addison Other [facility] Other 02-25-2023 14:00-0400 Body weight 137.44 kg Wendy Addison Other [employer] Other 02-25-2023 14:00-0400 Diastolic blood pressure 87 mm[Hg] Wendy Addison Other [employer] Other 02-25-2023 14:00-0400 Systolic blood pressure 143 mm[Hg] Wendy Addison Other [employer] Other 04-27-2022 11:00-0400 Body height 162.56 cm Amira [place] Other [facility] Other 04-27-2022 11:00-0400 Body mass index (BMI) [Ratio] 49.77 kg/m2 [facility] [place] Other [facility] Other 04-27-2022 11:00-0400 Body weight 131.54 kg Amira [place] Other [facility] Other 03-14-2022 16:30-0400 Body height 162.56 cm Amira [place] Other [facility] Other 03-14-2022 16:30-0400 Body mass index (BMI) [Ratio] 49.77 kg/m2 [facility] [place] Other [facility] Other 03-14-2022 16:30-0400 Body weight 131.54 kg Amira [place] Other [facility] Other 05-09-2021 12:00-0400 Body height 162.56 cm Evert Addison Other [employer] Other 05-09-2021 12:00-0400 Body mass index (BMI) [Ratio] 49.77 kg/m2 Evert Addison Other [employer] Other 05-09-2021 12:00-0400 Body weight 131.54 kg Evert Addison Other [employer] Other Encounters Encounter Date Encounter Type Care Provider Facility Start: 11-16-2024 End: 11-16-2024 ambulatory [facility] Work Phone: Start: 11-16-2024 End: 11-16-2024 Patient encounter procedure [facility] Work Phone: Start: 09-10-2024 End: 09-10-2024 ambulatory Wendy Addison MD Work Phone: [facility] Work Phone: Start: 09-10-2024 End: 09-10-2024 Patient encounter procedure Wendy Addison MD Work Phone: [facility] Work Phone: Start: 08-11-2024 End: 08-11-2024 ambulatory Wendy Addison MD Work Phone: [facility] Work Phone: Start: 08-11-2024 End: 08-11-2024 Patient encounter procedure Wendy Addison MD Work Phone: [facility] Work Phone: Start: 08-01-2024 End: 08-01-2024 ambulatory Wendy Addison MD Work Phone: [facility] Work Phone: Start: 08-01-2024 End: 08-01-2024 Patient encounter procedure Wendy Addison MD Work Phone: [facility] Work Phone: Start: 06-25-2024 Non-patient / Non-visit Wendy Addison MD Work Phone: [facility] Work Phone: Start: 06-23-2024 Non-patient / Non-visit Wendy Addison MD Work Phone: [facility] Work Phone: Start: 06-23-2024 End: 06-23-2024 Admission to same day surgery center Wendy Addison MD Work Phone: [facility] Work Phone: Start: 06-23-2024 End: 06-23-2024 ambulatory Aziza Romero Facility:[facility] Start: 05-28-2024 Non-patient / Non-visit Wendy Addison MD Work Phone: [facility] Work Phone: Start: 05-19-2024 Patient encounter status [facility] Start: 05-19-2024 End: 05-19-2024 ambulatory [facility] Work Phone: Start: 05-19-2024 End: 05-19-2024 Encounter for general adult medical examination without abnormal findings [facility] Start: 05-19-2024 End: 05-19-2024 Patient encounter procedure [facility] Work Phone: Start: 01-24-2024 End: 01-24-2024 ambulatory [facility] Work Phone: Start: 01-24-2024 End: 01-24-2024 Patient encounter procedure [facility] Work Phone: Start: 08-22-2023 End: 08-22-2023 ambulatory Wendy Addison Other [employer] Other Start: 08-22-2023 Telephone encounter Wendy Addison [facility] Start: 08-13-2023 End: 08-13-2023 ambulatory Wendy Addison Other [employer] Other Start: 08-13-2023 Office outpatient vi sit 15 minutes Wendy Addison [facility] Start: 07-12-2023 End: 07-12-2023 ambulatory Amira Sewell Other [employer] Other Start: 07-12-2023 Postop follow up vis it related to original px Amira Sewell [facility] Start: 07-02-2023 End: 07-02-2023 Admission to same day surgery center MD Wendy Addison Work Phone: [facility] [place] Start: 07-02-2023 End: 07-02-2023 ambulatory MD Wendy Addison Work Phone: [facility] Work Phone: Start: 07-01-2023 End: 07-01-2023 ambulatory Wendy Addison Other [employer] Other Start: 07-01-2023 Telephone encounter Wendy Addison [facility] Start: 06-27-2023 End: 06-27-2023 ambulatory Wendy Addison Other [employer] Other Start: 06-27-2023 Telephone encounter Wendy Addison [facility] Start: 06-04-2023 End: 06-04-2023 ambulatory Wendy Addison Other [employer] Other Start: 06-04-2023 Office outpatient vi sit 15 minutes Wendy Addison [facility] Start: 03-05-2023 End: 03-05-2023 ambulatory Wendy Addison Other [facility] Start: 03-05-2023 Telephone encounter Wendy Addison [facility] Start: 03-04-2023 End: 03-04-2023 ambulatory Wendy Addison Other [facility] Other Start: 03-04-2023 Telephone encounter Wendy Addison [facility] Start: 02-25-2023 End: 02-25-2023 Departed Referred MD Wendy Addison Work Phone: [facility] [place] Work Phone: Start: 02-25-2023 End: 02-25-2023 ambulatory Wendy Addison Other [facility] Other Start: 02-25-2023 Encounter for genera l adult medical examination without abnormal findings Wendy Addison [facility] Start: 02-25-2023 Encounter for gynecological examination (general) (routine) without abnormal findings Wendy Addison [facility] Start: 02-25-2023 Periodic preventive med est patient 40-64yrs Wendy Addison [facility] Start: 02-14-2023 End: 02-14-2023 ambulatory Wendy Addison Other [facility] Start: 02-14-2023 Telephone encounter Wendy Addison [facility] Start: 08-16-2022 End: 08-17-2022 ambulatory Amber Y Sharita Facility:[facility] Start: 04-27-2022 End: 04-27-2022 ambulatory Amira Sewell Other [facility] Other Start: 04-27-2022 Office outpatient vi sit 15 minutes Amira Sewell [facility] Start: 04-10-2022 End: 04-10-2022 ambulatory Amira Sewell Other [facility] Other Start: 04-10-2022 Telephone encounter Amira LEDEZMA G [facility] Start: 03-29-2022 End: 03-29-2022 ambulatory Amira Sewell Other [facility] Other Start: 03-29-2022 Telephone encounter Amira LEDEZMA G [facility] Start: 03-27-2022 End: 04-17-2022 ambulatory AMIRA SEWELL Facility: Start: 03-14-2022 End: 03-14-2022 Patient encounter procedure MD Wendy Addison Work Phone: [facility] Start: 03-14-2022 End: 03-14-2022 ambulatory Amira Sewell Other [facility] Start: 03-14-2022 Office outpatient ne w 30 minutes Amira Sewell [facility] Start: 03-13-2022 Encounter for genera l adult medical examination without abnormal findings DR WENDY ADDISON [facility] Start: 03-12-2022 End: 03-13-[address] WENDY ADDISON Facility:[facility] Start: 03-12-2022 End: 03-13-2022 Encounter for general adult medical examination without abnormal findings DR WENDY ADDISON Facility:[facility] Start: 03-09-2022 Adult health examination Katarina Addison Other [facility] Start: 03-09-2022 Encounter for genera l adult medical examination with abnormal findings Wendy Addison Other [facility] Start: 03-09-2022 Encounter for genera l adult medical examination without abnormal findings Wendy Addison Other [facility] Start: 03-09-2022 Problem, abnormal examination Wendy Addison Other [facility] Start: 03-02-2022 End: 03-02-[address] WENDY ADDISON Facility:[facility] Start: 02-23-2022 End: 02-23-[address] WENDY ADDISON Facility:[facility] Start: 01-12-2022 End: 01-13-[address] WENDY ADDISON Facility:[facility] Start: 07-21-2021 End: 07-21-[address] WENDY ADDISON Facility:[facility] Start: 05-09-2021 Postop follow up vis it related to original px Evert Addison [facility] [place] Neurosurgery Procedures Date Procedure Procedure Detail Performing Clinician Start: 06-23-2024 Colonoscopy Wendy logan MD Work Phone: Start: 07-02-2023 Release of trigger finger MD Wendy Addison Work Phone: Start: 03-14-2022 X-ray of right knee MD Wendy Addison Work Phone: Start: 10-03-2018 Venereal disease screening Wendy Addison Other Start: 09-03-2018 Screening mammography Adelina Addison Other Start: 11-11-2013 General examination of patient Wendy Addison Other Viral screening Wendy Addison Other Plan of Treatment Date Care Activity Detail Author Start: 06-23-2024 [facility] Start: 05-19-2024 Patient referral [facility] Work Phone: Start: 07-02-2023 [facility] Start: 02-25-2023 [facility] Comprehensive metabo lic 2000 panel - Serum or Plasma [facility] MG Breast - bilatera l Screening [facility] Patient Education Hemorrhoids Co brandyn polyps Know your Meds [facility] Work Phone: Patient referral [facility] Work Phone: XR Chest 2 Views [facility] Immunizations Immunization Date Immunization Notes Care Provider Fa cility 07-10-2021 COVID-19 Vaccine Pfi zer - Documentation Purposes Only Wendy Addison Other [facility] Payers Date Payer Category Payer Private Health Insurance [id number] 2024 Self-pay [id number] 2022 [facility] [id number] 2022 Unknown [id number] 1983 Unknown [id number] 1983 Unknown [id number] 1983 Unknown [id number] 1983 Unknown [id number] 1983 Unknown [id number] 1983 Unknown [id number] 1983 Unknown [id number] 1959 Unknown [id number] 1959 Unknown [id number] Private Health Insurance [facility] [id number] Unknown [id number] Unknown [id number] Unknown [place] BC/BS [id number] Social History Date Type Detail Facility Sex Assigned At [facility] Start: 04-10-2021 End: 08-01-2024 Tobacco smoking status NHIS Never smoked tobacco (finding) [facility] Start: 1985 Sex Assigned At Female [facility] Start: 08-01-2024 End: 11-16-2024 Sex Female (finding) [facility] NEGATED: Highlighted row [facility] Medical Equipment Procedure Code Equipment Code Equipment Origin al Text Equipment Identifier Dates Cervical total d isc replacement prosthesis, sterile [id number] [facility] Start: 04-10-2021 Goals Date Patient Goal Desired Activity /State Clinical Notes 05-09-2021 to 09-10-2024 Note Date & Type Note Facility 09-10-2024 Evaluation note Diagnosis Onset Date Resolution Anxiety acute September 10, 2024 1:33pm Hypertension acute August 1:33pm [facility] Work Phone: 1(314) 349-763901-18-2025 Evaluation note* Diagnosis Onset Date Resolution Status Admit Date Acute sinusitis acute July 152024 9:39am Cough acute August 11, 2024 9:20am Fever acute August 11, 2024 9:20am Influenza A acute August 11, 2024 9:20am [facility] Work Phone: 1(566) 106-181011-05-2024 Evaluation note* Diagnosis Onset Date Resolution Status Admit Date Blood in stool acute May 192023 2:03pm Screening mammogram for [facility] cancer acute May 19 2:03pm Stress incontinence acute Novem 2023 2:03pm Wellness examination acute Nove mb2023 2:03pm [facility] Work Phone: 1(903) 500-792711-05-2024 Evaluation note* Diagnosis Onset Date Resolution Status Admit Date Blood in stool acute May 192023 2:03pm Screening mammogram for mel[facility] cancer acute May 19 2:03pm Stress incontinence acute 2023 2:03pm Wellness examination acute Nove mb2023 2:03pm Acute sinusitis acute July 152024 9:39am Cough acute August 11, 2024 9:20am Fever acute August 11, 2024 9:20am Influenza A acute August 11, 2024 9:20am [facility] Work Phone: 1([phone]) 915-836411-05-2024 Hospital Discharge instructionsAmbulatory Orders* Referral to Gastroenterology Time Frame: 05/19/24, Location: None Selected [facility] Work Phone: 1(775) 275-178201-30-2024 Evaluation note* Encounter Date Diagnosis Assessment Notes Treatment Notes Treatment Clinical Notes Jul, Non-seasonal allergic rhinitis, unspecified trigger (ICD-10 - J30.89) trial of a daily allergy med and kenalog. has been congested since April. Followup as needed. [facility] Other 12-29-2023 Evaluation note* Encounter Date Diagnosis Assessment Notes Treatment Notes Treatment Clinical Notes Jun, Trigger finger, righ t middle finger (ICD-10 - M65.331) Leandro is here now 1 week out from right middle finger trigger finger release. She is doing well. Surgical incision benign. Sutures removed. Continue to work on range of motion including full extension of the finger. Scar massage. Follow-up as needed. Jun, Other specified postprocedural states (ICD-10 - Z98.890) Patient instructed to continue to work on motion. Call with any concerns or questions. Jun, Visit for suture removal (ICD-10 - Z48.02) Suture removal performed. Patient tolerated well. Jun, Other See orders for this visit as documented in the electronic medical record. [facility] 12-18-2023 Evaluation note* Encounter Date Diagnosis Assessment Notes Treatment Notes Treatment Clinical Notes Jun, Essential (primary) hypertension (ICD-10 - I10) [facility] 11-21-2023 Evaluation note* Encounter Date Diagnosis Assessment Notes Treatment Notes Treatment Clinical Notes May, Essential (primary) hypertension (ICD-10 - I10) Increased dose from 25mg to 50mg bid. Denies symptoms when exercising. Discussed possiblity of a stress test to r/o CAD w indigestion and upper back pain. Pt agrees to increase med first and followup if symptoms continue. May, Trigger finger, right middle finger (ICD-10 - M65.331) Mentioned at end of visit. No visible abnormalities. Has to unlock finger each morning. Agrees to referral to Dr. Loja. [facility] Other 08-14-2023 Evaluation note* Encounter Date Diagnosis Assessment Notes Treatment Notes Treatment Clinical Notes Feb, Encounter for gynecological examination without abnormal finding (ICD-10 - Z01.419) Clinical impressions discussed. Monthly SBE advised along with yearly mammograms. I will contact pt. with the results of her pap testing and arrange follow up based on the results. All questions answered to her satisfaction and patient sent home stable Feb, Screening mammogram for breast cancer (ICD-10 - Z12.31) Feb, Encounter for general adult medical examination without abnormal findings (ICD-10 - Z00.00) Pt requests yearly labs. Feb, Abnormal bleeding in menstrual cycle (ICD-10 - N92.6) Pt has hx of BTL. She agrees to pelvic US and referral to [facility] Feb, Depression, unspecified (ICD-10 - F32.A) Pt requests to decrease dose. [facility] Other 10-14-2022 Evaluation note* Encounter Date Diagnosis Assessment Notes Treatment Notes Treatment Clinical Notes Apr, Primary osteoarthritis of right knee (ICD-10 - M17.11) Leandro presents with right knee pain. At this juncture we have discussed the findings and diagnosis as well as personally reviewed appropriate imaging and performed interpretation of related testing and examination with the patient in office today. Prior medical notes from Dr. Addison and history have been reviewed. At this time I would recommend a trial of conservative treatment outlined below. Today we have discussed degenerative joint disease of the knee and its treatment. Imaging was discussed and explained to the patient. We discussed recommended conservative therapies including physical therapy, anti-inflammatory medications, and weight loss strategies. We also discussed other treatment options including cortisone injections, Visco supplementation injections which are options for treatment. I have laid out the course of knee DJD including the end-stage treatment of total joint arthroplasty. The patient recognizes and understands our options and goals and we will move forward with our treatment. Today we have initiated physical therapy and anti-inflammatory medications. We have done a trial of physical therapy as well as Celebrex without improvement. We discussed proceeding with a cortisone injection versus MRI today. Patient wants to forego injection and obtain MRI which we will order today. She can follow-up after MRI is completed. The patient has been involved in our cooperative treatment plan and agrees to move forward with treatment at this time. Patient's progression has slowed. She has not noticed much improvement with physical therapy or medication. Based on the history of this condition and physical exam findings, This condition could require surgical treatment. An MRI will be necessary to plan futher treatment. Patient opts to proceed with treatment plan. Apr, Subluxation of right knee, initial encounter (ICD-10 - S83.101A) This does not seem to be causing an issue right now but we will continue to monitor and see if it causes any problems The patient appears to be suffering from subluxation of the knee. We discussed the conservative treatment options which can be beneficial in relieving pain including gentle non-impact motion and quadriceps strengthening exercise as well as occasional use of non-steroidal anti-inflammatory medication, and surgery. Patient given order for physical therapy. Prescription for celecoxib sent into patient pharmacy Apr, Acute pain of right knee (ICD-10 - M25.561) Apr, Internal derangement of right knee (ICD-10 - M23.91) MRI ordered today to evaluate for internal derangement [facility] 08-31-2022 Evaluation note* Encounter Date Diagnosis Assessment Notes Treatment Notes Treatment Clinical Notes Feb, Primary osteoarthritis of right knee (ICD-10 - M17.11) Leandro presents with right knee pain. At this juncture we have discussed the findings and diagnosis as well as personally reviewed appropriate imaging and performed interpretation of related testing and examination with the patient in office today. Prior medical notes from Dr. Addison and history have been reviewed. At this time I would recommend a trial of conservative treatment outlined below. Today we have discussed degenerative joint disease of the knee and its treatment. Imaging was discussed and explained to the patient. We discussed recommended conservative therapies including physical therapy, anti-inflammatory medications, and weight loss strategies. We also discussed other treatment options including cortisone injections, Visco supplementation injections which are options for treatment. I have laid out the course of knee DJD including the end-stage treatment of total joint arthroplasty. The patient recognizes and understands our options and goals and we will move forward with our treatment. Today we have initiated physical therapy and anti-inflammatory medications. I will see them back as needed. The patient has been involved in our cooperative treatment plan and agrees to move forward with treatment at this time. The patient is suffering from degenerative arthritis involving the knee. We discussed the conservative treatment options which can be beneficial in relieving pain, including gentle non-impact motion exercise and non-steroidal anti-inflammatory medication. We discussed the use of occasional cortisone injections that can provide pain relief as well as hyaluronan lubricant injection. Feb, Subluxation of right knee, initial encounter (ICD-10 - S83.101A) This does not seem to be causing an issue right now but we will continue to monitor and see if it causes any problems The patient appears to be suffering from subluxation of the knee. We discussed the conservative treatment options which can be beneficial in relieving pain including gentle non-impact motion and quadriceps strengthening exercise as well as occasional use of non-steroidal anti-inflammatory medication, and surgery. Patient given order for physical therapy. Prescription for celecoxib sent into patient pharmacy Feb, Acute pain of right knee (ICD-10 - M25.561) Feb, Other See orders for this visit as documented in the electronic medical record. 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 She did have some regrowth pain, but has not had any for the last 5 days. I will see her again in 2 months with a x-ray of her cervical spine. [facility] Other evaluation noteNo assessment information available [facility] Work Phone: Evaluation noteNo InformationNort [employer] Other Evaluation note* Diagnosis Onset Date Resolution Status Blood in stool acute Screening mammogram for breast cancer acute Wellness examination acute [facility] Work Phone: Hismzqf general Narrative - Reported* Type Description Date Medical History Hypertension Medical History anxiety Medical History obesity Surgical History cholecystectomy Surgical History tubal ligation Surgical History tonsillectomy Hospitalization History See Above [facility] Other [facility] general Narrative - Reported* Type Description Date Medical History Hypertension Medical History anxiety Medical History obesity Surgical History cholecystectomy Surgical History tubal ligation Surgical History tonsillectomy Surgical History c-spine Hospitalization History See Above [facility] Other [facility] general Narrative - Reported* Type Description Date Medical History Hypertension Medical History anxiety Medical History obesity Surgical History Problem Title : chol ecystectomy (gallbladder surgery), hx of, Problem Description : cholecystectomy (gallbladder surgery), hx of, Problem Comment : yes, Problem Status : Active, Surgical History Problem Title : past surgical history reviewed, Problem Description : past surgical history reviewed, Problem Comment : reviewed - no changes required, Problem Status : Active, Surgical History Problem Title : surg ical procedures, hx of, Problem Description : surgical procedures, hx of, Problem Comment : Cholecystectomy Tonsillectomy , Problem Status : Active, Surgical History Problem Title : surg ical procedures, hx of, Problem Description : surgical procedures, hx of, Problem Comment : Cholecystectomy Tonsillectomy Sinus surgery - Dr. Tatum 02/2016, Problem Status : Active, Hospitalization History See Above [facility] Other History general Narrative - Reported* Type Description Date Medical History Hypertension Medical History anxiety Medical History obesity Surgical History cholecystectomy Surgical History tubal ligation Surgical History tonsillectomy Surgical History c-spine Surgical History Diagnostic D& C, removal of tub es 04/2023 Hospitalization History See Above [facility] Other Hospital Discharge instructions Additional Instructions Trigger finger release Maintain your postoperative dressing for 72 hours after surgery. After this time the dressing can be removed and you may wash your hands normally with warm soapy water. You may keep the incision covered with a Band-Aid if you wish. We will remove the sutures at your follow- up appointment. You may ice and elevate for the first 72 hours as you see fit. This can help with inflammation and swelling. You are weightbearing as tolerated and range of motion as tolerated to the hand wrist and fingers. Take medications as prescribed. You may take Motrin or Tylenol itez-gla-seypgbj if you wish. Follow-up in 1 week for reevaluation suture removal. Call to make an appointment if you have not already scheduled one. Dr. Amira Sewell [facility] [address] [place] [phone] Work Phone: Chief Complaint and Reason for Visit Chief Complaint M25.561 Chief Complaint Trigger Finger Chief Complaint stomach issues Chief Complaint wellness Reason for Visit Blood in stool Screening mammogram for breast cancer Wellness examination Chief Complaint Admit Date wellness May 19, 2024 2 :03pm Melena June 23, 2024 9:29am Melena June 23, 2024 9:53am Amb Documentation June 25, 2024 4:18pm cough, chest congestion August 01 9:39am Reason for Visit Admit Date Blood in stool May 19, 2024 2 :03pm Screening mammogram for breast cancer No vember 2023 2:03pm Stress incontinence May 19, 2024 2 :03pm Wellness examination May 19, 2024 2:03pm Chief Complaint Admit Date wellness May 19, 2024 2 :03pm Melena June 23, 2024 9:29am Melena June 23, 2024 9:53am Amb Documentation June 25, 2024 4:18pm cough, chest congestion August 01 9:39am Cough, fever August 11, 2024 9 :20am Reason for Visit Admit Date Blood in stool May 19, 2024 2 :03pm Screening mammogram for breast cancer No vember 2023 2:03pm Stress incontinence May 19, 2024 2 :03pm Wellness examination May 19, 2024 2:03pm Acute sinusitis August 01, 2024 9 :39am Cough August 11, 2024 9 :20am Fever August 11, 2024 9 :20am Influenza A August 11, 2024 9 :20am Chief Complaint Admit Date Melena June 23, 2024 9:29am Melena June 23, 2024 9:53am Amb Documentation June 25, 2024 4:18pm cough, chest congestion August 01 9:39am Cough, fever August 11, 2024 9 :20am BP Issues September 10, 2024 1:33pm Reason for Visit Admit Date Acute sinusitis August 01, 2024 9 :39am Cough August 11, 2024 9 :20am Fever August 11, 2024 9 :20am Influenza A August 11, 2024 9 :20am Chief Complaint Admit Date BP Issues September 10, 2024 1:33pm nausea November 16, 2024 1:14pm Reason for Visit Admit Date Anxiety September 10, 2024 1:33pm Hypertension September 10, 2024 1:33pm Family History Relationship Condition Age at Onset Recorded Date/T larry father Anxiety Unknown Hypertension Unknown Not Specified Primary malignant ne oplasm of breast with metastasis Unknown Relationship Condition Age at Onset Recorded Date/T larry father Anxiety Unknown Hypertension Unknown mother Primary malignant ne oplasm of breast with metastasis Unknown father Hypertension Unknown grandparent History of stroke Unknown Heart disease Unknown Relationship Condition Age at Onset Recorded Date/T larry father Anxiety Unknown Hypertension Unknown mother Primary malignant ne oplasm of breast with metastasis Unknown grandparent Heart disease Unknown History of stroke Unknown Advance Directives Advance Directive Response Recorded Date/ Time Advance Directives No February 27, 2021 11:10am Advance Directive Response Recorded Date/ Time Advance Directives No February 27, 2021 10:10am Summary Purpose Reason for Referral Reason R 3rd finger locks e ach morning. Diagnosis 1 Trigger finger, righ t middle finger (M65.331) Referral Organization [facility] [email or web address]ohny Referring Provider First Name Wendy Referring Provider Last Name Azael Referring Provider Specialty [facility] Referred Organization Unknown Facility Referred Provider Shavon Loja Referred Provider Specialty Hand Surgery Referral Priority Routine Reason Dr. Cook [employer] - abnormal bleeding; labs and pelvic US pending Diagnosis 1 Encounter for gyneco logical examination without abnormal finding (Z01.419) Referral Organization [facility] johny Referring Provider First Name Wendy Referring Provider Last Name Azael Referring Provider Specialty [facility] Directr Referred Organization [facility] Referred Provider Mauri Katz Referred Address [address] [place] [id number] Referred Provider Specialty OB - Gynecol ogy Referral Priority Routine General Notes Lauren Martinez 04:03:16 PM >received today, awaiting labs and US Clinical Notes f: [phone] Additional Source Comments REASON FOR VISIT (unrecogniz ed section and content) 4 wk po/ C5-6 artificial dis c/ 04-10-2021/xrayRight Knee PainNo InformationMRIPTRecheck Right KneeRefillwellness with paptest resultspap testBP ISSUESORTHO CONSULT NOTErefillRecheck Right HandOn-Going Sinusesmessage Care Teams (unrecognized sec tion and content) Team Status: Inactive Member Role Status Dates Wendy Addison MD Primary Care Provider Active Yonathan Okeefe DO Family Provider Active Amira Sewell , Attending Provider Active Team Status: Active Member Role Status Dates Yonathan Okeefe DO Family Provider Active Wendy Addison MD Primary Care Provider Active Team Status: Active Member Role Status Dates Yonathan Okeefe DO Family Provider Active Team Status: Inactive Member Role Status Dates Wendy Addison MD Attending Provider Active Yonathan Okeefe DO Family Provider Active Team Status: Inactive Member Role Status Dates Yonathan Okeefe DO Family Provider Active Amira Sewell , Attending Provider Active Wendy Addison MD Primary Care Provider Active Team Status: Inactive Member Role Status Dates Wendy Addison MD Primary Care Provide r, Attending Provider Active Start: January 24, 2024 End: January 24, 2024 Team Status: Inactive Member Role Status Dates Wendy Addison MD Primary Care Provide r, Attending Provider Active Start: May 19, 2024 End: May 19, 2024 Team Status: Active Member Role Status Dates Wendy Addison MD Primary Care Provide r, Attending Provider Active Start: May 28, 2024 Team Status: Inactive Member Role Status Dates Wendy Addison MD Primary Care Provider Active Start: June 23, 2024 End: June 23, 2024 Aziza L Ly , DO Attending Provider Active St art: June 23, 2024 End: June 23, 2024 Team Status: Active Member Role Status Sukhwinder Addison MD Primary Care Provider Active Start: June 23, 2024 Aziza L Ly , DO Attending Provider, Other Provider Active Start: June 23, 2024 Team Status: Active Member Role Status Dates Wendy Addison MD Primary Care Provider Active Start: June 25, 2024 TR Cordero Attending Provider Active S tart: June 25, 2024 Team Status: Inactive Member Role Status Sukhwinder Addison MD Primary Care Provider Active Start: August 01, 2024 End: August 01, 2024 Jenelle Buitrago APRN Attending Provider Active Start: August 01, 2024 End: August 01, 2024 Team Status: Inactive Member Role Status Sukhwinder Addison MD Primary Care Provider Active Start: August 11, 2024 End: August 11, 2024 Alice Irving APRN [employer]IX MAKER-C Attending Provider Active Start: August 11, 2024 End: August 11, 2024 Team Status: Inactive Member Role Status Sukhwinder Addison MD Primary Care Provide r, Attending Provider Active Start: September 10, 2024 End: September 10, 2024 Team Status: Inactive Member Role Status Sukhwinder Addison MD Primary Care Provider Active Start: November 16, 2024 End: November 16, 2024 Aziza L Ly , DO Attending Provider Active St art: November 16, 2024 End: November 16, 2024 Goals (unrecognized section and content) Goals may be documented in a n alternate section INFORMATION SOURCE (unrecogn ized section and content) DATE CREATED AUTHOR 04/25/2022 [facility] DATE CREATED AUTHOR AUTHOR'S ORGANIZ ATION 08/22/2022 [facility] DATE CREATED AUTHOR AUTHOR'S ORGANIZ ATION 07/04/2024 [facility] FOR RECORDS PERTAINING TO PATIENTS WHO ARE OR HAVE BEEN ENROLLED IN A CHEMICAL DEPENDENCY/SUBSTANCEABUSE PROGRAM, SOME INFORMATION MAY BE OMITTED. This clinical summary was aggregated from multiple sources. Caution should be exercised in using it in the provision of clinical care. This summary normalizes information from multiple sources, and as a consequence, information in this document may materially change the coding, format and clinical context of patient data. In addition, data may be omitted in some cases. CLINICAL DECISIONS SHOULD BE BASED ON THE PRIMARY CLINICAL RECORDS. [employer] provides no warranty or guarantee of the accuracy or completeness of information in this document.
--- NOTE | 2024-11-22 15:34 | ECG_ITS ---
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 Measurements Intervals [place]iman Rate: 87 P: 49 SD: 160 QRS: 30 QRSD: 98 T: 27 QT: 362 QTc: 406 Interpretive Statements 1100 Sinus rhythm 8102 Low QRS voltage in chest leads Abnormal ECG Compared to ECG 04/22/2023 11:49:33 Low QRS voltage now present Electronically Signed On 11-22-2024 23:02:09 EDT by ANJU CARPIO M.D.
--- NOTE | 2024-11-22 15:34 | ED.GENADUL1 ---
HPI HPI - General Adult General Chief complaint: Chest Pain Stated complaint: chest and back and jaw pain Time Seen by Provider: 11/22/24 15:29 Source: patient Mode of arrival: walk-in Limitations: no limitations History of Present Illness HPI narrative: 39-year-old female presents to the emergency department for chest pain. She has had it continuously for about a day and a half. It is in the middle part of her sternum and she has it on the right side of her neck as well. It feels like a pinching. It does not wax or wane and it is continuous. No trauma or unusual activity. She has had some GI symptoms recently and is scheduled to have an upper endoscopy in a few weeks. She is on omeprazole. Related Data Home Medications ?Medication ?Instructions ?Recorded ?Confirmed ascorbic acid (vitamin C) 1,000 mg 1 g PO DAILY 04/22/23 04/29/23 capsule ferrous sulfate 325 mg (65 mg 325 mg PO DAILY 04/22/23 04/29/23 iron) tablet (Feosol) metoprolol tartrate 25 mg tablet 25 mg PO DAILY 04/22/23 04/29/23 sertraline 100 mg tablet 100 mg PO DAILY 04/22/23 04/29/23 turmeric 400 mg capsule mg PO 04/22/23 Previous Rx's ?Medication ?Instructions ?Recorded hydrocodone 5 mg-acetaminophen 325 1 tab PO Q4H PRN pain 4 days #16 04/29/23 mg tablet tabs ibuprofen 800 mg tablet 800 mg PO Q8H PRN pain 14 days #40 04/29/23 tabs Allergies Allergy/AdvReac Type Severity Reaction Status Date / Time No Known Drug Allergies Allergy Verified 04/22/23 11:24 Opioid HPI Opioid Management Most Recent Opioid Data: Last Pain Scale 4 04/29/23, 15:22 Review of Systems ROS Narrative A ten point review of systems is negative except as noted above. [facility] Medical History (Updated 11/22/24 @ 16:26 by Vince Acosta MD) Restless leg ?G25.81 - Restless legs syndrome (ICD-10) Anemia ?D64.9 - Anemia, unspecified (ICD-10) Anxiety ?F41.9 - Anxiety disorder, unspecified (ICD-10) COVID-19 ?U07.1 - COVID-19 (ICD-10) Sleep apnea ?G47.30 - Sleep apnea, unspecified (ICD-10) Abnormal uterine bleeding ?N93.9 - Abnormal uterine and vaginal bleeding, unspecified (ICD-10) Pelvic pain ?R10.2 - Pelvic and perineal pain (ICD-10) Hypertension ?I10 - Essential (primary) hypertension (ICD-10) Acute dysfunction of eustachian tube ?H69.90 - Unspecified Eustachian tube disorder, unspecified ear (ICD-10) Thickened endometrium ?R93.89 - Abnormal findings on diagnostic imaging of other specified body structures (ICD-10) Surgical History (Updated 04/22/23 @ 11:31 by Letha Lyon NP) History of tonsillectomy ?Z90.89 - Acquired absence of other organs (ICD-10) History of cholecystectomy ?Z90.49 - Acquired absence of other specified parts of digestive tract (ICD-10) H/O cervical spinal arthrodesis ?Z98.1 - Arthrodesis status (ICD-10) History of tubal ligation ?Z98.51 - Tubal ligation status (ICD-10) Family History (Updated 04/22/23 @ 11:31 by Letha Lyon NP) Other Family history of heart disease Family history of hypertension Family history of myocardial infarction Family history of stroke Social History (Updated 04/22/23 @ 11:26 by Letha Lyon NP) Within the past year, how often did you have a drink containing alcohol: never Score interpretation: A score less than 3 is consistent with normal alcohol consumption. Smoking status: Never smoker Previous occupational history: Desk work Highest level of school completed/degree received: high school graduate Little interest or pleasure in doing things: not at all Feeling down, depressed, or hopeless: not at all Exam Narrative Exam Narrative: Nurses note and vital signs reviewed and patient is not hypoxic. General: The patient appears well and in no apparent distress. Patient is resting comfortably on cart. Skin: Warm, dry, no pallor noted. There is no rash noted. Head: Normocephalic, atraumatic Eye: Normal conjunctiva, no drainage Ears, Nose, Mouth, and Throat: oral mucosa is moist. Nares patent. Cardiovascular: Regular Rate and Rhythm Respiratory: Patient is in no distress, no accessory muscle use, lungs are clear to auscultation, no wheezing, rales or rhonchi Back: non-tender GI: Soft and nontender Musculoskeletal: The patient has no evidence of calf tenderness, no pitting edema, symmetrical pulses noted bilaterally Neurological: A&O, normal speech Psychiatric: Cooperative Constitutional Vital Signs, click to edit/add: Last Vital Signs Temp 98.2 F 11/22/24 15:17 Pulse 98 H 11/22/24 15:17 Resp 18 11/22/24 15:17 BP 147/88 H 11/22/24 15:17 Pulse Ox 97 11/22/24 15:17 O2 Del Method Room Air 11/22/24 15:17 Course Vital Signs Vital signs: Vital Signs Temperature 98.2 F 11/22/24 15:17 Pulse Rate 98 H 11/22/24 15:17 Respiratory Rate 18 11/22/24 15:17 Blood Pressure 147/88 H 11/22/24 15:17 Pulse Oximetry 97 11/22/24 15:17 Oxygen Delivery Method Room Air 11/22/24 15:17 Temperature 98.2 F 11/22/24 15:17 Pulse Rate 98 H 11/22/24 15:17 Respiratory Rate 18 11/22/24 15:17 Blood Pressure 147/88 H 11/22/24 15:17 Pulse Oximetry 97 11/22/24 15:17 Oxygen Delivery Method Room Air 11/22/24 15:17 Medical Decision Making MDM Narrative Medical decision making narrative: Her workup including troponin is negative. At this point I do not suspect cardiac etiology. She is discharged home and is scheduled to have an upper endoscopy in a few weeks. Treatment diagnosis and follow-up were discussed with the patient. Differential Diagnosis Differential Diagnosis: Myocardial infarction, pneumothorax, esophageal reflux Lab Data Lab results reviewed: Yes I reviewed the patient's lab results Labs: Lab Results 11/22/24 Range/Units 15:30 WBC 11.4 H (4.0-11.0) 10^3/uL RBC 5.18 (4.20-5.40) 10^6/uL Hgb 14.2 (12.0-16.0) g/dL Hct 43.0 (36.0-48.0) % MCV 83.0 (81.0-99.0) fL MCH 27.4 (26.7-34.0) pg MCHC 33.0 (29.9-35.2) g/dL RDW 14.0 (11.0-15.0) % Plt Count 412 (150-450) 10^3/uL MPV 8.6 L (9.5-13.5) fL Neut % (Auto) 71.3 (43.0-75.0) % Lymph % (Auto) 20.1 L (20.5-60.0) % Barbour % (Auto) 6.3 (1.7-12.0) % Eos % (Auto) 1.6 (0.9-7.0) % Baso % (Auto) 0.3 (0.2-2.0) % Neut # (Auto) 8.1 H (1.4-6.5) 10^3/uL Lymph # (Auto) 2.3 (1.2-3.8) 10^3/uL Barbour # (Auto) 0.7 (0.3-0.8) 10^3/uL Eos # (Auto) 0.2 (0.0-0.7) 10^3/uL Baso # (Auto) 0.0 (0.0-0.1) 10^3/uL Abs Immat Gran (auto) 0.04 H (0.00-0.03) 10^3/uL Imm/Tot Granulo (auto) 0.4 (0.0-0.5) % Sodium 135 L (136-145) mmol/L Potassium 3.8 (3.5-5.1) mmol/L Chloride 101 (98-107) mmol/L Carbon Dioxide 27.4 (21.0-32.0) mmol/L Anion Gap 10.4 BUN 11.0 (7.0-18.0) mg/dL Creatinine 0.84 (0.55-1.02) mg/dL Est GFR ( Amer) >60 (>=60 mL/min/1.73m^2) Est GFR (Non-Af Amer) >60 (>=60 mL/min/1.73m^2) BUN/Creatinine Ratio 13.1 Glucose 104 (74-106) mg/dL Calcium 9.2 (8.5-10.1) mg/dL Troponin I High Sens <4.0 L (4.0-51.3) pg/mL Imaging Data Chest x-ray: My impression: No acute findings ECG Data Attestation: I personally reviewed and interpreted this ECG as follows: (EKG on my interpretation shows sinus rhythm with rate of 87 and no acute change) Discharge Plan Discharge Chief Complaint: Chest Pain Clinical Impression: Chest pain Patient Disposition: Home, Self-Care Time of Disposition Decision: 16:26 Condition: Good Mode of Transportation: Private Vehicle Prescriptions / Home Meds: No Action sertraline 100 mg tablet 100 mg PO DAILY metoprolol tartrate 25 mg tablet 25 mg PO DAILY ascorbic acid (vitamin C) 1,000 mg capsule 1 g PO DAILY turmeric 400 mg capsule PO ferrous sulfate [Feosol] 325 mg (65 mg iron) tablet 325 mg PO DAILY ibuprofen 800 mg tablet 800 mg PO Q8H PRN (Reason: pain) 14 Days Qty: 40 0RF hydrocodone-acetaminophen 5-325 mg tablet 1 tab PO Q4H PRN (Reason: pain) 4 Days Qty: 16 0RF Print Language: Guatemalan Instructions: Chest Pain (ED) Referrals: Wendy Ballard MD [Primary Care Provider, Family Practice] - 1 week
[2024-11-22] MEDS: lidocaine HCL 15 ML, MAG HYDROX/ALUMINUM HYD/SIMETH 30 ML, HYOSCYAMINE SULFATE 0.25 MG PO (15:43)
[2024-11-22 15:46] LABS: Basophils Percent Auto 0.3 % (0.2-2.0); Eosinophils Absolute Auto 0.2 10^3/uL (0.0-0.7); Eosinophils Percent Auto 1.6 % (0.9-7.0); Hemoglobin 14.2 g/dL (12.0-16.0); Immature Granulocytes Abs Auto 0.04 10^3/uL (0.00-0.03); Immature Granulocytes Pct Auto 0.4 % (0.0-0.5); Lymphocytes Absolute Auto 2.3 10^3/uL (1.2-3.8); Lymphocytes Percent Auto 20.1 % (20.5-60.0); Mean Corpuscular Hemoglobin 27.4 pg (26.7-34.0); Mean Platelet Volume 8.6 fL (9.5-13.5); Monocytes Absolute Auto 0.7 10^3/uL (0.3-0.8); Monocytes Percent Auto 6.3 % (1.7-12.0); Neutrophils Absolute Auto 8.1 10^3/uL (1.4-6.5); Neutrophils Percent Auto 71.3 % (43.0-75.0); Platelet Count 412 10^3/uL (150-450); Red Blood Count 5.18 10^6/uL (4.20-5.40); White Blood Count 11.4 10^3/uL (4.0-11.0)
[2024-11-22 16:02] LABS: Anion Gap 10.4; BUN Creatinine Ratio 13.1; Calcium 9.2 mg/dL (8.5-10.1); Carbon Dioxide 27.4 mmol/L (21.0-32.0); Chloride 101 mmol/L (98-107); Estimated GFR (African America >60 (>=60 mL/min/1.73m^2); Estimated GFR (Non-African Ame >60 (>=60 mL/min/1.73m^2); Glucose 104 mg/dL (74-106); Potassium 3.8 mmol/L (3.5-5.1); Sodium 135 mmol/L (136-145); Troponin I High Sensitivity <4.0 pg/mL (4.0-51.3)
== END 2024-11-22 16:35 | disposition home or self-care (01) ==
PROVIDERS: Emergency Provider Emergency Medicine; PCP Family Medicine
DX: R07.9 Chest pain, unspecified (principal); Z90.49 Acquired absence of other specified parts of digestive tract; Z98.1 Arthrodesis status; Z98.51 Tubal ligation status
CPT/HCPCS: 36415; 71045; 80048; 84484; 85025; 93005; 99285

== ENCOUNTER 2025-01-18 08:30 | Outpatient (OUT) | payer OTHER, BC, SELFPAY ==
--- OUTSIDE RECORDS SUMMARY | 2024-12-15 12:35 | XMS_ITS ---
Author Name Auto Generated Organization [facility] Care Team Providers Care Clutch Operator Name Role Phone Wendy Ballard Primary Care Unavailable Aziza Romero Attending Unavailable Ly, Aziza Parra Admitting Unavailable Heather, Aziza Parra Attending Unavailable Ly, Aziza Parra Admitting Unavailable Wendy Ballard Primary Care Unavailable PROBLEMS DATE TYPE CONDITION / CODE ATTENDING STATUS JAMAL E 12/15/2024 Unknown Gastro-esophagea l reflux disease without esophagitis / K21.9(ICD-10) Aziza Romero [facility] 06/23/2024 Unknown Hemorrhage of an us and rectum / K62.5(ICD-10) Aziza Romero [facility] PROCEDURES No Procedure Records Found RESULTS L Observed: 12/15/2024 2:44 PM Status: F Source: [facility] ----- ------- Specimen: [id number] Received: 12/15/24-1511 Status: LAVERNE Perez Num: [id number] Spec Type: Surgical Subm Dr: Aziza Romero DO Tissues: A Small Intestine - Biopsy/Polyp (SMALL BOWEL BX'S) B Gastric Biopsy (GASTRIC BX) Procedures: HE/4, Gross/Micro L4/2 ----- ------- Age/ Patient Sex Location Account Attending Physician ----- ------- Tessy Cabrales 39/F [id number] Aziza Romero DO ----- ------- SPEC NUM: [id number] RECD: 12/15/24 STATUS: LAVERNE PEREZ NUM: [id number] CHERY: 12/15/24-1444 [facility] DR: Aziza Romero DO ENTERED: 12/15/[address] [facility] [address]: COLLEEN TYPE: Surgical DEPT: S ENTERED BY: [id number] RECV BY: [id number] ORDERED: HE/4, Gross/Micro L4/2 ORDERED: HE, Gross/Micro L4/2 Pathological Diagnosis A. Duodenum (mucosal biopsies): Within normal limits No features of celiac disease or dysplasia seen B. Stomach (mucosal biopsies): Chronic gastritis, minimal and inactive No Helicobacter pylori organisms, intestinal metaplasia, or dysplasia seen Clinical Information GERD, Part A rule out celiac, Part B rule out H. pylori Gross Description Part A is received in formalin labeled with the patients name, date of , and small bowel BX's are 2 saba-lazcano, focally erythematous, friable, 0.2 and 0.3 cm in greatest dimension tissue bits. The specimen is entirely submitted in a single cassette. (1, ns, [id number] A) Part B is received in formalin labeled with the patients name, date of , and gastric BX's are 2 saba-lazcano, focally erythematous, friable, 0.2 and 0.3 cm in greatest dimension tissue bits. The specimen is entirely submitted in a single cassette. (1, ns, [id number] B) ----- ------- Specimen: [id number] Received: 12/15/24 Status: LAVERNE Perez Num: [id number] Spec Type: Surgical Subm Dr: Aziza Romero DO Tissues: A Small Intestine - Biopsy/Polyp (SMALL BOWEL BX'S) B Gastric Biopsy (GASTRIC BX) Procedures: HE/4, Gross/Micro L4/2 ----- ------- Patient: Martha Cabralesmaritza Sahu [id number] (Continued) ----- ------- Specimen: Received: 12/15/24 (Continued) Signed (signature on file) Cali Soto Jr., MD 12/16/24 1326 ----- ------- Specimen: Received: 12/15/24 Status: LAVERNE Mcneillalbina Num: [id number] Spec Type: Surgical Subm Dr: Aziza Romero DO Tissues: A Small Intestine - Biopsy/Polyp (SMALL BOWEL BX'S) B Gastric Biopsy (GASTRIC BX) Procedures: HE/Herb, Gross/Micro L4/2 ----- ------- Patient: Tessy Cabrales [id number] (Continued) ----- ------- Specimen: Received: 12/15/24 (Continued) CPT Codes 93772 x 2 ----- ------- ----- ------- Specimen: [id number] Received: 12/15/24 Status: LAVERNE Mcneillalbina Num: [id number] Spec Type: Surgical Subm Dr: Aziza Romero DO Tissues: A Small Intestine - Biopsy/Polyp (SMALL BOWEL BX'S) B Gastric Biopsy (GASTRIC BX) Procedures: TESSY/Herb, Gross/Micro L4/2 ----- ------- Patient: Tessy Cabrales [id number] (Continued) ----- ------- Signed (signature on file) Cali Soto Jr., MD 12/16/24 1326 HCG,URINE Collected: 12:37 PM Status: F Source: [facility] TYPE CODE TESTS RESULT OUT OF RANGE REFERENCE UNITS LAB UHCGQ HCG Qualitative,U rine Negative Result Comment: PERFORMED BY : [address] [place] [id number] PATHOLOGIST COPY LATHE OPERATOR LUIS SLOAN M.D. Performed By: #### UHCG #### [place] [id number] [facility] L Observed: 06/23/2024 10:23 AM Status: F Source: [facility] ----- ------- Specimen: [id number] Received: 06/23/24 Status: LAVERNE Perez Num: [id number] Spec Type: Surgical Subm Dr: Aziza Romero DO Tissues: A Colon Biopsy (TRANSVERSE POLYP) Procedures: TESSY/Pedro, Daquan/Micro L4 ----- ------- Age/ Patient Sex Location Account Attending Physician ----- ------- Tessy Cabrales 39/F [id number] Aziza L Ly, DO ----- ------- SPEC NUM: [id number] RECD: 06/23/24 STATUS: LAVERNE PEREZ NUM: [id number] CHERY: 06/23/24 [facility] DR: Aziza Romero DO ENTERED: 06/23/[address] [facility] [address]: COLLEEN TYPE: Surgical DEPT: S ENTERED BY: [id number] RECV BY: [id number] ORDERED: HE/2, Gross/Micro L4 ORDERED: HE/2, Gross/Micro [...] submitted in a single cassette. (1, ns, [id number] A) CPT Codes 29096 ----- ------- ----- ------- Specimen: [id number] Received: 06/23/24 Status: LAVERNE Perez Num: [id number] Spec Type: Surgical Subm Dr: Aziza Romero, DO Tissues: A Colon Biopsy (TRANSVERSE POLYP) Procedures: HE/2, Gross/Micro L4 ----- ------- Patient: Tessy Cabrales [id number] (Continued) ----- ------- Signed (signature on file) Adam Ricketts MD 06/24/24 1545 HCG,URINE Collected: 06/23/2024 9:31 AM Status: F Source: [facility] TYPE CODE TESTS RESULT OUT OF RANGE REFERENCE UNITS LAB UHCGQ HCG Qualitative,U rine Negative Result Comment: PERFORMED BY : [place] [address] PATHOLOGIST COPY LATHE OPERATOR ADAM RICKETTS M.D. Performed By: #### UHCG #### [address] ALLERGIES DATE TYPE / CODE NAME / CODE REACTION SEVERITY SOURCE 12/15/2024 Drug Allergy/[id number] (SNOMED CT) No Known Allergies/F7042766 88(RXNORM) Unknown [facility] ENCOUNTERS ADMIT/DISCHARGE ACCOUNT NUMBER ADMITTING ENCOUNTER CLASS LOCATION SOURCE 12/15/2024/ 5 [id number] [facility] 06/23/2024/ [id number] Aziza Romero [facility] PAYERS ENCOUNTER GUARANTOR PAYER SUBSCRIBER SOURCE 12/15/2024 Tessy [address] [place] [address]Ujf: () Primary Insurance:[facility] [address] Number: [id number] Date:2024-11-16 Tessy Sahu [place]: [id number] [place] [address]Tom: () [facility] 12/15/2024 Secondary Insurance[facility]: [id number] Date:[id number] [address] [place] [id number]: Josué Mead: [id number] [address] [place], [place] [address]Rcy: () [facility] 12/15/2024 Tertiary Insuran ce:Self PayPolicy Number: Effective Date:2024-12-10 [facility] 06/23/2024 Tessy [place] [address]Weu: () Primary Insurance[facility] Number: [id number] Date:2024-05-22 Tessy Sahu [place]: [id number] [place] [address]Nxb: () [facility] 06/23/2024 Secondary Insurance:[facility] HospitalPolicy Number: [id number] Date:[id number] [address] [address]JA: Josué Mead: [id number] [address]sh[address] [place], [place] [address]Ohi: () [facility] 06/23/2024 Tertiary Insuran ce:Self PayPolicy Number: Effective Date:2024-05-22 NOT GIVENUNK [facility]
== END 2025-01-18 08:31 | disposition home or self-care (01) ==
LOC: SLEEP 01-19 08:27
PROVIDERS: PCP Family Medicine; Visit Provider Family Medicine
DX: G47.33 Obstructive sleep apnea (adult) (pediatric) (principal)
CPT/HCPCS: 95806

== ENCOUNTER 2025-03-26 08:34 | Outpatient (OUT) | payer BC, OTHER, SELFPAY ==
--- OUTSIDE RECORDS SUMMARY | 2025-03-26 08:36 | XMS_ITS | Encounter Summary ---
Author Organization [facility] Address [address] [place] [address] Care Team Providers Care Manager Combination Name Role Phone Wendy Ballard MD Primary Care Provider [phone] Encounter Details Date Type Department Care Team (Late Contact Info) Description 04/22/2023 Clinisync Result Encounter [facility] External Department Unsolicited Mauri Katz, DO [address] [place] [address] Social History Tobacco Use Types Packs/Day Years Used Date Smoking Tobacco: Never Alcohol Use Standard Drinks/Week Comments Yes 0 (1 standard drink = 0.6 oz pure alcohol) Alcohol: 1 or 2 drinks on a typical day/monthly or less Caffeine: coffee, soda Comments Unknown Sex and Gender Information Value Date Recorded Sex Assigned at Female 03/19/2023 11:27 AM EDT Legal Sex Female 6:50 PM EDT Gender Identity Female 03/19/2023 11:27 AM EDT Sexual Orientation Straight 03/19/2023 11 :27 AM EDT COVID-19 Exposure Response Date Recorded In the last 10 days, have yo u been in contact with someone who was confirmed or suspected to have Coronavirus/COVID-19? No / Unsure 03/28/2023 11:52 AM EDT documented as of this encounter Plan of Treatment Upcoming Encounters Date Type Department Care Team (Late st Contact Info) Description 04/12/2025 1:10 PM EDT Office Visit [facility] [address] [facility] [address] [place] [address] Reva Tatum MD [address] [facility] [address] [place] [address] documented as of this encounter Procedures Procedure Name Priority Date/Time Associated Diagnosis Comments ECG 12-LEAD 04/22/2023 11:49 AM EDT documented in this encounter Results * ECG 12-LEAD (04/22/2023 11:49 AM EDT) Anatomical Region Laterality Modality Other 04/22/2023 11:4 9 AM EDT Narrative 04/22/2023 11:49 AM EDT [address] [address] Electrocardiograph Report Signed Patient: LEANDRO HEATON MR#: [id number] : 1985 Acct:[id number] Age/Sex: 38 / F ADM Date: 04/22/23 Loc: PST Attending Dr: Mauri Katz D.O. Ordering Physician: Mauri Katz D.O. Date of Service: 04/22/23 Procedure(s): ECG 12 lead Accession Number(s): [id number] cc: [facility] Test Date: 2023-04-22 Pat Name: LEANDRO HEATON Department: Room: - Gender: Female Ostrich Farmer: : 1985 Requested By: MAURI KATZ Order Number: [id number] Reading MD: DUSTY CORONADO Measurements Intervals Bradley Rate: 71 P: 25 VA: 168 QRS: 6 QRSD: 103 T: 5 QT: 396 QTc: 431 Interpretive Statements SINUS RHYTHM No previous ECG available for comparison Electronically Signed On 04-23-2023 7:02:13 EDT by DUSTY CORONADO Dictated By: Dusty Coronado D.O. Signed By: 04/23/23 0702 DD/ 1149 TD/TT: Bear Keeper: Procedure Note Radiology, Radiologist, - 04/23/[address] [address] Electrocardiograph Report Signed Patient: LEANDRO HEATON MMR#: [id number] : 1985Acct:[id number] Age/Sex: 38 / FADM Date: 04/22/23 Loc: PST Attending Dr: Mauri Katz D.O. Ordering Physician: Mauri Katz D.O. Date of Service: 04/22/23 Procedure(s): ECG 12 lead Accession Number(s): [id number] cc: [facility] Test Date: 2023-04-22 Pat Name: LEANDRO HEATON Department: Room: - Gender: Female Ostrich Farmer: : 1985 Requested By: MAURI KATZ Order Number: [id number] Reading MD: DUSTY CORONADO Measurements Intervals Bradley Rate: 71 P: 25 VA: 168 QRS: 6 QRSD: 103 T: 5 QT: 396 QTc: 431 Interpretive Statements SINUS RHYTHM No previous ECG available for comparison Electronically Signed On 04-23-2023 7:02:13 EDT by DUSTY CORONADO Dictated By: Dusty Coronado D.O. Signed By:04/23/23 0702 DD/ 1149 TD/TT: Bear Keeper: us Mauri Katz DO [facility] Final Result documented in this encounter Visit Diagnoses Not on filedocumented in this encounter Care Teams Manager Combination Relationship Specialty Start Date End Date Wendy Ballard MD [address] [place] [phone] PCP - General Family Medicine 03/23/25 documented as of this encounter
--- OUTSIDE RECORDS SUMMARY | 2025-03-26 08:36 | XMS_ITS | Clinical Summary ---
Author Organization [facility] Address [address] [place] [address] Care Team Providers Care Dog Show Judge Name Role Phone Wendy Ballard MD Primary Care Provider [phone] Allergies No known active allergies Medications metoprolol succinate XL (Toprol-XL) 25 MG 24 hr tablet Take 25 mg by mouth in the morning. 05/07/2023 Active sertraline (Zoloft) 100 MG tablet 1 (one) time each day at the same time. Active Family History Medical History Relation Name Comments Hypertension Father Heart disease Maternal Grandfather Hypertension Maternal Grandfather Stroke Maternal Grandfather Cancer Maternal Grandmother Relation Name Status Comments Father Alive Maternal Grandfather Maternal Grandmother Alive Mother Alive Paternal Grandmother Alive Social History Tobacco Use Types Packs/Day Years Used Date Smoking Tobacco: Never Tobacco Cessation:Counseling Given: Not Answered Alcohol Use Standard Drinks/Week Comments Yes 0 (1 standard drink = 0.6 oz pure alcohol) Alcohol: 1 or 2 drinks on a typical day/monthly or less Caffeine: coffee, soda AUDIT-C Answer Date Recorded Q1: How often do you have a drink containing alc ohol? Monthly or less 05/11/2023 Q2: How many drinks containi ng alcohol do you have on a typical day when you are drinking? 1 or 2 05/11/2023 Q3: How often do you have si x or more drinks on one occasion? Never 05/11/2023 Comments Unknown Sex and Gender Information Value Date Recorded Sex Assigned at Female 03/19/2023 11:27 AM EDT Legal Sex Female 6:50 PM EDT Gender Identity Female 03/19/2023 11:27 AM EDT Sexual Orientation Straight 03/19/2023 11 :27 AM EDT Last Filed Vital Signs Vital Sign Reading Time Taken Comments Blood Pressure 138/90 05/13/2023 10:39 AM EDT Pulse - - Temperature - - Respiratory Rate - - Oxygen Saturation - - Inhaled Oxygen Concentration - - Weight 138 kg (304 lb) 05/13/2023 10:39 AM EDT Height 162.6 cm (5' 4 ) 08/06/2018 12:00 PM EST Body Mass Index 52.18 08/06/2018 12:00 PM EST Plan of Treatment Upcoming Encounters Date Type Department Care Team (Late st Contact Info) Description 04/12/2025 1:10 PM EDT Office Visit [facility] [address] [facility] [address] [place] [address] Reva Tatum MD [address] [facility] [address] [place] [address] Health Maintenance Due Date Last Done Comments Pap Smear 02/05/2004 Cervical Cancer Screening 2013 HPV/Cotest 2013 Mammogram 2023 Influenza Vaccine (#1) 2025 05/03/2008, 2006 Insurance [facility] Care Teams Dog Show Judge Relationship Specialty Start Date End Date Wendy Ballard MD [address] [place] [address] PCP - General Family Medicine 03/23/25
--- OUTSIDE RECORDS SUMMARY | 2025-03-26 08:36 | XMS_ITS | Continuity of Care Document ---
Author Organization [facility] Address [address] [place] [address] Insurance Providers Payer Plan Claims Address Claims Phone Policy Number Group Number Relation Employer Guarantor Name Guarantor Guarantor Address Guarantor Phone [employer] [address], [place] [address] [id number] Self Olga Cabrales 1985 [facility] [place] [address] [address], [place] [address] [id number] Spouse Unknown Unknown [facility] [address] Problems Unknown Problems Results No Results Allergies, adverse reactions, alerts No known allergies and adverse reactions Medications No administered medications reported Vital Signs Date Vital Result Comment 05/21/2023 Body Height [id number] m Body Weight 136.29927991296 kg Body Mass Index 51.49 kg/m2 Social History No smoking Hx information available
--- NOTE | 2025-03-26 08:38 | CT_ITS ---
The [address] [address] Patient Name: LEANDRO HEATNO MRN: [id number] date: 1985 Sex: F Assigned Patient Location: CT Current Patient Location: CT Accession/Order Number: [id number] Exam Date: 03/26/2025 08:44 Report Date: 03/26/2025 09:18 At the request of: TATE ADDISON MD Procedure: CT soft tissue neck wo con CT SOFT TISSUE NECK WITHOUT CONTRAST COMPARISON: 01/09/2019 CLINICAL DATA: Neck lumps. Spiral images were obtained through the neck without contrast. Markers were placed in the area of clinical concern. This CT exam was performed using one or more following dose reduction techniques: Automated exposure control, adjustment of the mA and/or kV according to patient size, or use of iterative reconstruction technique. There is still a small right thyroid nodule with rim calcification at the inferior pole. The submandibular and parotid glands appear symmetric. There is no significant enlargement of the adenoids or tonsils. The epiglottis and vocal cords are within normal limits. The airway is patent throughout its course with normal appearance the mucosal surfaces. No prevertebral soft tissue swelling is seen. Multiple small shotty cervical lymph nodes are again visualized showing no significant interval change in size since the prior. The left lump marker is near the submandibular gland, similar to the prior. The right marker is near the parotid gland. There is no interval change or developing masses at these sites. Straightening of the cervical lordosis is seen. There is mild bilateral ethmoid and right maxillary and bilateral thickening. The mastoid air cells are clear. Limited imaging through the upper chest shows no contributory findings. CT/CT soft tissue neck wo con IMPRESSION: SIMILAR SHOTTY CERVICAL LYMPH NODES. STABLE RIGHT THYROID NODULE WITH PERIPHERAL CALCIFICATION. MINOR CHRONIC SINUSITIS. NO ACUTE NECK FINDINGS. Impression dictated by: Melissa Gomez M.D. 03/26/2025 9:18 AM Dictation Location: [employer] Electronically authenticated by: [id number] Date: 03/26/2025 09:18
== END 2025-03-26 08:35 | disposition home or self-care (01) ==
LOC: CT 08:34
PROVIDERS: PCP Family Medicine; Visit Provider Family Medicine
DX: R22.0 Localized swelling, mass and lump, head (principal); E04.1 Nontoxic single thyroid nodule; J32.8 Other chronic sinusitis
CPT/HCPCS: 70490

== ENCOUNTER 2025-04-23 09:26 | Outpatient (OUT) | payer BC, OTHER, SELFPAY ==
--- OUTSIDE RECORDS SUMMARY | 2025-04-23 09:35 | XMS_ITS | CCD ---
Author Organization [facility] Care Team Providers Care Airborne Operations Superintendent Name Role Phone Evert Addison Unavailable MD Tate Addison Primary Care Provider DO Jesse Sewell Attending Provider [phone] Jesse Sewell Unavailable AZAEL, DR TATE Cullen Admitting Unavailable ADDISON, DR TATE Cullen Attending Unavailable ADDISON, DR TATE Cullen Primary Care Unavailable ADDISON, DR TATE Cullen Consulting Unavailable ADDISON, DR TATE Cullen Admitting Unavailable ADDISON, DR TATE Cullen Attending Unavailable ADDISON, DR TATE Cullen Primary Care Unavailable ADDISON, DR TATE Cullen Consulting Unavailable ADDISON, DR TATE Cullen Admitting Unavailable ADDISON, DR TATE Cullen Attending Unavailable ADDISON, DR TATE Cullen Primary Care Unavailable ADDISON, DR TATE Cullen Consulting Unavailable JESSE SEWELL Admitting Unavailable JESSE SEWELL Attending Unavailable ADDISON, DR TATE Cullen Primary Care Unavailable ADDISON, DR TATE Cullen Admitting Unavailable ADDISON, DR TATE Cullen Attending Unavailable ADDISON, DR TATE Cullen Primary Care Unavailable [place], DR SERVANDO Hammond Consulting Unavailable ADDISON, DR TATE Cullen Consulting Unavailable ADDISON, DR TATE Cullen Admitting Unavailable ADDISON, DR TATE Cullen Attending Unavailable ADDISON, DR TATE Cullen Primary Care Unavailable ADDISON, DR TATE Cullen Consulting Unavailable Sharita, Amber Y Attending Unavailable Sharita Amber Y Admitting Unavailable Tate Addison Unavailable MD Tate Addison Attending Provider DO Jesse Sewell Attending Provider [phone] MD Tate Addison Primary Care Provider Tate Addison MD Primary Care Provider Ly Aziza DAVE Attending Provider [phone] Tate Addison Primary Care Unavailable Aziza Romero Attending Unavailable Ly, Aziza L Admitting Unavailable Ly, Aziza L Attending Unavailable Heather, Aziza L Admitting Unavailable Tate Addison Primary Care Unavailable Tate Addison MD Primary Care Provider Ly DO, Aziza Parra Attending Provider Ly DO, Aziza L Other Provider Елена Gordon DO Attending Provider Tate Addison MD Attending Provider [phone] Tate Addison MD Primary Care Provider [phone] BOB ARRIAGA Attending Unavailable Tate Addison MD Primary Care Provider Елена Gordon DO Attending Provider [phone] Ly DO, Aziza Parra Attending Provider Allergies Allergy Classification Reported Allergen(s) Allergy Type Date of Onset Reaction(s) Facility (4 sources) patient allergy list reviewed by nurse or physicia Propensity to adverse reactions 3 Comment:Done [place] Other (4 sources) Allergies Reconciled Propensity to adverse reactions Unknown [place] Other Medications Current Medications Medication Drug Class(es) Dates Sig (Normalized) Sig (Original) carvedilol 12.5 mg oral tablet (17 sources) alpha-Adrenergic Lico, beta-Adrenergic Lico Start: 09-10-2024 End: 03-12-2025 take 1 tablet by mouth twice daily at mealtime Carvedilol (Coreg) 12.5 mg tablet Active 12.5 MG PO Twice daily 60 March 12, 2025 11:18am must administer with a meal/food Complies with drug therapy celecoxib 200 mg oral capsule (6 sources) [...] for 0 nail formula *Pick strength-form from SemiLev for eRX* Feb, Active ciprofloxacin 500 mg oral tablet (2 sources) Quinolone Antimicrobial Start: 04-12-2025 End: 04-19-2025 take 1 tablet by mouth in the morning ciprofloxacin (Cipro) 500 MG tablet Indications: Perichondritis of left pinna Take 1 tablet (500 mg) by mouth in the morning and 1 tablet (500 mg) before bedtime. Do all this for 7 days. 14 tablet 04/12/2025 04/19/2025 Active Iron (1 source) take 1 tablet by mouth once daily Iron 325 (65 Fe) MG 1 tablet Orally Once a day Active Neomycin-Polymyxin- HC (1 source) Start: 03-09-2022 Neomycin-Polymyxin- HC Neomycin-Polymyxin- HC , 4 Metric Drop two times daily # 1, 03/09/2022, No Refill. Active Otic two times daily for 0 *Pick strength-form from SemiLev for eRX* Feb, Active omeprazole 20 mg delayed release oral capsule (19 sources) Proton Pump Inhibitor Start: 04-19-2025 take 1 capsule by mouth once daily Omeprazole 20 mg capsule,delayed release(DR/EC) Active 20 MG PO Daily April 19, 2025 12:00am Complies with drug therapy Start: 11-16-2024 omeprazole (Pr iLOSEC) [address] capsule Daily 11/16/2024 Active Start: 11-16-2024 End: 04-19-2025 take 2 capsules by mouth once daily Omeprazole 20 mg capsule,delayed release(DR/EC) Discontinued 40 MG PO Daily November 16, 2024 12:00am April 19, 2025 9:54am Start: 11-16-2024 take 1 capsule by [facility] once daily Omeprazole 20 mg capsule,delayed release(DR/EC) Active 20 MG PO Daily November 16, 2024 12:00am Start: 08-01-2024 End: 09-10-2024 take 1 capsule by mouth once daily Omeprazole 20 mg capsule,delayed release(DR/EC) Discontinued 20 MG PO Daily August 01, 2024 1:00am September 10, 2024 2:52pm predniSONE 20 mg oral tablet (16 sources) Start: 04-12-2025 End: 04-18-2025 take 1 tablet by mouth in the morning predniSONE (Deltasone) 20 MG tablet Indications: Perichondritis of left pinna Take 1 tablet (20 mg) by mouth in the morning and 1 tablet (20 mg) before bedtime. Do all this for 6 days. 12 tablet 04/12/2025 04/18/2025 Active Start: 04-11-2021 End: 07-02-2023 Prednisone 10 mg tablets,dos e pack Discontinued 1 dose pk PO per [...] then take 1 tab for 3 days raNITIdine (7 sources) Histamine-2 Receptor Antagonist Start: 12-15-2024 raNITIdine HCl (RANITIDINE 150 MAX STRENGTH PO) Daily 12/15/2024 Active Start: 12-15-2024 take 1 tablet by haley th once daily Ranitidine Hcl 150 mg tablet Active 150 MG PO Daily December 15, 2024 12:00am Complies with drug therapy sertraline 50 mg oral tablet (20 sources) Serotonin Reuptake Inhibitor Start: 09-10-2024 End: 03-12-2025 Sertraline 50 mg tablet Active 25 MG PO Daily March 12, 2025 11:18am Complies with drug therapy Start: 09-08-2024 End: 09-10-2024 take 1 tablet [...] 90 days Total of 75mg daily Active sucralfate 1000 mg oral tablet (1 source) Aluminum Complex Start: 04-19-2025 take 1 tablet by mouth three times daily Sucralfate (Carafate) 1 gram tablet Active 1 GM PO Three times daily 90 April 19, 2025 12:00am Complies with drug therapy terbinafine 250 mg oral tablet (1 source) Allylamine Antifungal Start: 03-08-2022 take 1 tablet by mouth once daily Terbinafine HCl 250MG Terbinafine HCl 250MG, 1 (one) Tablet Tablet daily # 30, 03/08/2022, Ref. x1. Active Oral daily for 0 *Pick strength-form from SemiLev for eRX* Feb, Active Vitamin C 100 MG (11 sources) take 1 tablet by mouth once daily Vitamin C 100 MG 1 tablet Orally Once a day Active Completed/Discontinued Medications Medication Drug Class(es) Dates Sig (Normalized) Sig (Original) amoxicillin 875 mg / clavulanate 125 mg oral tablet (10 sources) Penicillin-class Antibacterial Start: 08-01-2024 End: 08-11-2024 [...] Active ascorbic acid 1000 mg oral tablet (19 sources) Vitamin C Start: 03-27-2021 End: 01-24-2024 take 1 g by mouth once daily Ascorbic Acid (Vitamin C) (Vitamin C) 1,000 mg Tablet Discontinued 1 GM PO Daily March 27, 2021 12:00am January 24, 2024 2:23pm take 1 tablet by haley th every twenty-four hours Vitamin C 100 MG 1 tablet Orally Once a day Active baclofen 10 mg oral tablet (15 sources) gamma-Aminobutyric Acid-ergic Agonist Start: 03-27-2021 End: 04-11-2021 take 1 tablet by mouth twice daily as needed for muscle spasms Baclofen 10 mg tablet Discontinued 10 MG PO Twice daily as needed for Muscle Spasm March 27, 2021 12:00am April 11, 2021 8:06am benzonatate 200 mg oral capsule (9 sources) Non-narcotic Antitussive Start: 08-01-2024 End: 08-11-2024 take 1 capsule by mouth three times daily as needed for cough Benzonatate 200 mg capsule Discontinued 200 MG PO Three times daily as needed for cough 30 August 01, 2024 1:00am August 11, 2024 10:31am cefdinir 300 mg oral capsule (8 sources) Cephalosporin Antibacterial Start: 08-04-2024 End: 08-11-2024 take 1 capsule by mouth every twelve hours Cefdinir 300 mg capsule Discontinued 300 MG PO Every 12 hours 14 August 04, 2024 1:00am August 11, 2024 10:31am cephalexin 500 mg oral capsule (14 sources) Cephalosporin Antibacterial Start: 04-11-2021 End: 07-02-2023 take 1 capsule by mouth three times daily Cephalexin 500 mg capsule Discontinued 500 MG PO Three times daily 15 April 11, 2021 12:00am July 02, 2023 7:09am cyclobenzaprine hydrochloride 10 mg oral tablet (14 sources) Muscle Relaxant Start: 04-11-2021 End: 07-02-2023 take 1 tablet by mouth three times daily as needed for muscle spasms Cyclobenzaprine 10 mg tablet Discontinued 10 MG PO Three times daily as needed for back spasms 50 April 11, 2021 12:00am July 02, 2023 7:09am dextromethorphan hydrobromide 3 mg/ml / promethazine hydrochloride 1.25 mg/ml oral solution (8 sources) Phenothiazine, Uncompetitive H-wydbdw-G-aspartate Receptor Antagonist, Sigma-1 Agonist Start: 08-11-2024 End: 08-24-2024 take 1 mL by mouth every four to six hours as needed for cough Promethazine-Dm 6.25-15 mg/5 mL syrup Discontinued 5 ML PO EVERY 4-6 HOURS as needed for cough 118 7 August 11, 2024 1:00am August 24, 2024 12:44pm dicyclomine hydrochloride 10 mg oral capsule (20 sources) Anticholinergic Start: 01-24-2024 End: 05-19-2024 take [...] day Active fluconazole 150 mg oral tablet (11 sources) Azole Antifungal Start: 09-02-2023 End: 01-23-2024 Fluconazole 150 mg tablet Discontinued 150 MG PO Q3D 2 September 02, 2023 1:00am January 23, 2024 9:02am glipiZIDE 10 mg oral tablet (11 sources) Sulfonylurea Start: 12-30-2023 End: 12-30-2023 take [...] / HYDROcodone bitartrate 1 mg/ml oral solution (7 sources) Opioid Agonist, Cholinergic Muscarinic Agonist Start: [...] 2023 1:00am September 16, 2023 11:06am Start: 05-07-2023 End: 04-12-2025 take 1 tablet by mouth every twenty-four hours in the morning metoprolol succinate XL (Toprol-XL) 25 MG 24 hr tablet Take 25 mg by mouth in the morning. 05/07/2023 04/12/2025 Discontinued (Therapy completed) Start: 04-10-2022 take 1 tablet by haley th once daily Metoprolol Succinate 25mg metoprolol succinate 25mg, 1 (one) Tablet daily # 30, 04/10/2022, Ref. x2. Active oral daily for 0 *Reorder from SemiLev for eRx and Interaction Alerts* Mar, Active [...] day Active montelukast 10 mg oral tablet (20 sources) Leukotriene Receptor Antagonist Start: 09-04-2023 End: [...] Active oxyCODONE hydrochloride 5 mg oral tablet (14 sources) Opioid Agonist Start: 04-11-2021 End: 07-02-2023 take 1 tablet by mouth every four to six hours as needed for pain Oxycodone 5 mg Tablet Discontinued 5 MG PO EVERY 4-6 HOURS as needed for pain 40 8 April 11, 2021 July 02, 2023 7:09am traMADol hydrochloride 50 mg oral tablet (20 sources) Opioid Agonist Start: 07-02-2023 End: 01-24-2024 take 1 tablet by mouth every four hours as needed for pain Tramadol 50 mg tablet Discontinued 50 MG PO Q4H as needed for pain 10 July 02, 2023 1:00am January 24, 2024 [...] Date Documented Da te Episodic/Chronic Abdominal pain (13 sources) Abdominal pain; Translations: [Unspecified abdominal pain] Onset: 02-06-2024 Episodic Allergic reactions (4 sources) Allergic contact dermatitis; Translations: [Allergic contact dermatitis, unspecified cause] Episodic Anxiety disorders (20 sources) Generalized anxiety disorder; Translations: [Generalized anxiety disorder] Onset: 0 01-02-2024 Chronic Diseases of mouth; excluding dental (9 sources) Sialoadenitis; Translations: [Sialoadenitis] Onset: 8 04-08-2025 Episodic Esophageal disorders (13 sources) Gastroesophageal reflux disease; Translations: [Gastro-esophageal reflux disease without esophagitis] Onset: 5 11-16-2024 Chronic Essential hypertension (20 sources) Essential hypertension; Translations: [Essential (primary) hypertension] Onset: 0 Chronic Essential hypertension (1 source) Essential hypertension; Translations: [Essential hypertension, benign] Onset: 9 Fever of unknown origin (13 sources) Fever; Translations: [Fever, unspecified] Onset: 5 08-11-2024 Episodic Gastrointestinal hemorrhage (17 sources) Hematochezia; Translations: [Melena] Onset: 4 05-19-2024 Episodic Genitourinary symptoms and ill-defined conditions (14 sources) Genuine stress incontinence; Translations: [Stress incontinence (female) (male)] Onset: 5 05-20-2024 Chronic Immunizations and screening for infectious disease (1 source) Encounter for screening for other viral diseases; Translations: [Encounter for screening for other viral diseases] Episodic Influenza (13 sources) Influenza due to Influenza A virus; Translations: [Influenza due to other identified influenza virus with other respiratory manifestations] Onset: 5 08-11-2024 Episodic Joint disorders and dislocations; trauma-related (12 sources) Derangement of right knee; Translations: [Unspecified internal derangement of right knee] Chronic Joint disorders and dislocations; trauma-related (3 sources) Unspecified subluxation of right knee, initial encounter; Translations: [Unspecified subluxation of right knee, subsequent encounter] Onset: 2 Resolved: 2 Episodic Menstrual disorders (1 source) Irregular menstruation, unspecified Chronic Mood disorders (3 sources) Depression; Translations: [Depression, unspecified] Chronic Mood disorders (2 sources) Mood disorders; Translations: [Depression, unspecified] Mycoses (8 sources) Superficial mycosis; Translations: [Superficial mycosis, unspecified] Episodic Nausea and vomiting (10 sources) Nausea; Translations: [Nausea] Onset: 5 11-16-2024 Episodic Nonmalignant breast conditions (8 sources) Unspecified lump in the left breast, unspecified quadrant; Translations: [Lump in left breast] Onset: 2 Episodic Nonspecific chest pain (5 sources) Chest pain; Translations: [Chest pain, unspecified] 12-01-2024 Episodic Osteoarthritis (20 sources) Osteoarthritis of right knee joint; Translations: [Unilateral primary osteoarthritis, right knee] Onset: 2 Resolved: 2 Chronic Other aftercare (1 source) Encounter for [...] middle finger Episodic Other connective tissue disease (15 sources) Triggering of digit; Translations: [Trigger finger, unspecified finger] Onset: 5 07-02-2023 Episodic Other ear and sense organ disorders (3 sources) Bilateral tinnitus; Translations: [Tinnitus, bilateral] Onset: 5 04-08-2025 Episodic Other ear and sense organ disorders (2 sources) Perichondritis of pinna; Translations: [Unspecified perichondritis of left external ear] 04-12-2025 Episodic Other endocrine disorders (3 sources) Disorder of pituitary gland; Translations: [Other disorders of pituitary gland] Chronic Other endocrine disorders (1 source) Other disorders of pituitary gland; Translations: [Other disorders of pituitary gland] Chronic Other lower respiratory disease (13 sources) Cough; Translations: [Cough] Onset: 5 08-11-2024 Episodic Other non-traumatic joint disorders (4 sources) Pain in right knee; Translations: [PAIN IN RIGHT KNEE] Onset: 2 Resolved: 2 Episodic Other non-traumatic joint disorders (3 sources) Arthralgia of the lower leg; Translations: [Pain in right knee] Episodic Other nutritional; endocrine; and metabolic disorders (9 sources) Body mass index 40+ - severely obese; Translations: [Body mass index (BMI) 45.0-49.9, adult] Onset: 9 Chronic Other nutritional; endocrine; and metabolic disorders (6 sources) Obesity; Translations: [Obesity, unspecified] Onset: 5 04-08-2025 Chronic Other nutritional; endocrine; and metabolic disorders [...] source) Obesity, unspecified; Translations: [Obesity, unspecified] Onset: 5 Chronic Other nutritional; endocrine; and metabolic disorders (1 source) Morbid (severe) obesity due to excess calories; Translations: [Morbid (severe) obesity due to excess calories] Chronic Other nutritional; endocrine; and metabolic disorders (2 sources) Severe obesity; Translations: [Class 3 severe obesity with body mass index (BMI) of 45.0 to 49.9 in adult] 03-04-2025 Chronic Other screening for suspected conditions (not mental disorders or infectious disease) (20 sources) Encounter for screening for malignant neoplasm of cervix; Translations: [Encounter for screening mammogram for malignant neoplasm of breast] Onset: 2 Episodic Other skin disorders (10 sources) Mass of submandibular region; Translations: [Localized swelling, mass and lump, head] Onset: 5 03-04-2025 Episodic Other upper respiratory disease (2 sources) Allergic rhinitis; Translations: [Other allergic rhinitis] Chronic Other upper respiratory disease (1 source) Other allergic rhinitis Chronic Other upper respiratory infections (18 sources) Chronic maxillary sinusitis; Translations: [Chronic maxillary sinusitis] Onset: 6 09-02-2023 Chronic Other upper respiratory infections (18 sources) Acute pharyngitis, unspecified; Translations: [Acute pharyngitis] Onset: 2 08-01-2024 Episodic Otitis media and related conditions (11 sources) Otitis media; Translations: [Otitis media, unspecified, unspecified ear] Onset: 8 04-08-2025 Episodic Residual codes; unclassified (7 sources) Sleep apnea; Translations: [Sleep apnea, unspecified] Onset: 5 12-01-2024 Chronic Residual codes; unclassified (1 source) Sleep apnea, unspecified; Translations: [Unspecified sleep apnea] 11-26-2024 Chronic Residual codes; unclassified (1 source) Other specified postprocedural states Episodic Spondylosis; intervertebral disc disorders; other back problems (20 sources) Cervical disc disorder at C5-C6 level with radiculopathy; Translations: [Cervical disc disorder with radiculopathy] Onset: 1 Resolved: 1 Episodic Unclassified (3 sources) CONTACT W/AND (SUSP) EXPOS COVID-19; Translations: [CONTACT W/AND (SUSP) EXPOS COVID-19] Onset: 2 Unclassified (3 sources) Contraception care education done; Translations: [General counseling for initiation of other contraceptive measures] Onset: 5 Unclassified (1 source) Screening examination for venereal disease; Translations: [Screening examination for venereal disease] Onset: 9 Unclassified (1 source) Routine general medical examination at health care facility; Translations: [Routine general medical examination at health care facility] Onset: 4 Unclassified (1 source) General counseling for initiation of other contraceptive measures; Translations: [General counseling for initiation of other contraceptive measures] Onset: 5 Unclassified (1 source) Other screening mammogram; Translations: [Other screening mammogram] Onset: 9 Unclassified (1 source) Body Mass Index 40.0-44.9, adult; Translations: [Body Mass Index 40.0-44.9, adult] Onset: 9 Unclassified (1 source) R22.0 - Localized swelling, mass and lump, head Past or Other Problems Problem Classification Problem Date Documented Da te Episodic/Chronic Cardiac dysrhythmias (8 sources) Palpitations; Translations: [Palpitations] Onset: 02-16-2015 Episodic Lymphadenitis (8 sources) Localized enlarged lymph nodes; Translations: [Localized enlarged lymph nodes] Onset: 06-22-2013 Episodic Unclassified (1 source) CONTACT W/AND (SUSP) EXPOS COVID-19; Translations: [CONTACT W/AND (SUSP) EXPOS COVID-19] Onset: 03-02-2022 Viral infection (8 sources) Verruca plantaris; Translations: [Plantar wart] Onset: 06-22-2013 Episodic Results Test Name Value Interpretation Reference Range Facility HCG ( test) IA.nickyi d Ql (U)Ordered By: Aziza Romero on 12-15-2024 HCG ( test) Ql (U) Urine human chorionic gonadotropin (hCG) detection by immunoassay [place] HCG ( test) Ql (U) Negative [place] HCG,Urineon 12-15-2024 Beta HCG ( test) Ql (U) Negative Normal [facility] Comment on above: Result Comment: PERF ORMED BY: [place] [address] PATHOLOGIST POWER PROJECT MANAGER LUIS SLOAN M.D. Performed By: #### U HCG #### [address] Mikel 12-15-2024 L Specimen: [id number] Received: 12/15/24 Status: LAVERNE Perez Num: [id number] Spec Type: Surgical Subm Dr: Aziza Romero DO Tissues: A Small Intestine - Biopsy/Polyp (SMALL BOWEL BX'S) B Gastric Biopsy (GASTRIC BX) Procedures: HE/, Gross/Micro L4/2 Age/ Patient Sex Location Account Attending Physician Tessy Heaton 39/F [id number] Aziza Romero DO SPEC NUM: [id number] RECD: 12/15/24 STATUS: LAVERNE PEREZ NUM: [id number] CHERY: 12/15/24-[address]: Aziza Romero DO ENTERED: 12/15/[address] [facility] [address]: COLLEEN TYPE: Surgical DEPT: S ENTERED BY: [id number] RECV BY: [id number] ORDERED: HE, Gross/Micro L4/2 ORDERED: , Gross/Micro L4/2 Pathological Diagnosis A. Duodenum (mucosal [...] submitted in a single cassette. (1, ns, [id number]) Part B is received in formalin labeled with the patients name, date of , and gastric BX's are 2 saba-lazcano, focally erythematous, friable, 0.2 and 0.3 cm in greatest dimension tissue bits. The specimen is entirely submitted in a single cassette. (1, ns, [id number]) Specimen: [id number] Received: 12/15/24 Status: LAVERNE Perez Num: [id number] Spec Type: Surgical Subm Dr: Aziza Romero DO Tissues: A Small Intestine - Biopsy/Polyp (SMALL BOWEL BX'S) B Gastric Biopsy (GASTRIC BX) Procedures: HE/Herb, Gross/Micro L4/2 Patient: Martha Heatonmaritza Sahu [id number] (Continued) Specimen: [id number] Received: 12/15/24 (Continued) Signed (signature on file) Cali Soto Jr., MD 12/16/24 1326 Specimen: Received: 12/15/24 Status: LAVERNE Perez Num: [id number] Spec Type: Surgical Subm Dr: Aziza Romero DO Tissues: A Small Intestine - Biopsy/Polyp (SMALL BOWEL BX'S) B Gastric Biopsy (GASTRIC BX) Procedures: HE/Herb, Gross/Micro L4/2 Patient: Tessy Heaton [id number] (Continued) Specimen: Received: 12/15/24 (Continued) CPT Codes 28475 x 2 Specimen: [id number] Received: 12/15/24 Status: LAVERNE Ana Num: [id number] Spec Type: Surgical Subm Dr: Aziza Romero DO Tissues: A Small Intestine - Biopsy/Polyp (SMALL BOWEL BX'S) B Gastric Biopsy (GASTRIC BX) Procedures: TESSY/Herb, Gross/Micro L4/2 Patient: Tessy Heaton [id number] (Continued) Signed (signature on file) Cali Soto Jr., MD 12/16/24 1326 Normal [facility] Basophils Auto (Bld) [#/Vol] on 11-22-2024 Basophils (Bld) [#/Vol] Automated basophil count 0.0-0.1 [place] Basophils/100 WBC Auto (Bld) on 11-22-2024 Basophils/100 WBC (Bld) Automated basophil % 0.2-2.0 [place] Eosinophils/100 WBC Auto (Bl d)on 11-22-2024 Eosinophils/100 WBC (Bld) Automated eosinophil % 0.9-7.0 [place] Erythrocyte distribution wid th Auto (RBC) [Ratio]on 11-22-2024 Erythrocyte distribution width (RBC) [Ratio] Erythrocyte distribution width [Ratio] by Automated count 11.0-15.0 [place] Estimated glomerular filtrat ion rate (GFR) non- Americanon 11-22-2024 GFR/1.73 sq M.predicted among non-blacks MDRD (S/P/Bld) [Vol rate/Area] Estimated glomerular filtration rate (GFR) non- >=60 mL/min/1.73m 2 [place] Hematocrit Auto (Bld) [Volum e fraction]on 11-22-2024 Hematocrit (Bld) [Volume fraction] Hematocrit [Volume Fraction] of Blood by Automated count 36.0-48.0 [place] Hemoglobin [Mass/volume] in Bloodon 11-22-2024 Hemoglobin (Bld) [Mass/Vol] Hemoglobin [Mass/volume] in Blood 12.0-16.0 [place] Laboratory - Chemistry and C hemistry - challengeon 11-22-2024 Calcium [Mass/Vol] 9.2 mg/dL 8.5-10.1 [facility] Chloride [Moles/Vol] 101 mmol/L 98-107 [facility] CO2 [Moles/Vol] 27.4 mmol/L 21.0-32.0 [facility] Creatinine [Mass/Vol] 0.84 mg/dL 0.55-1.02 [place] GFR/1.73 sq M.predicted MDRD (S/P/Bld) [Vol rate/Area] mL/min/{1.73_m2} >=60 mL/min/1.73m 2 [place] Glucose [Mass/Vol] 104 mg/dL 74-106 [facility] Potassium [Moles/Vol] 3.8 mmol/L 3.5-5.1 [place] Sodium [Moles/Vol] 135 mmol/L Low 136-145 [facility] Urea nitrogen [Mass/Vol] 11.0 mg/dL 7.0-18.0 [place] Urea nitrogen/Creatinine [Mass ratio] 13.1 mg/mg [place] [facility] - Hematology and Cell countson 11-22-2024 Immature granulocytes/100 WBC (Bld) 0.4 % 0.0-0.5 [place] Leukocytes [#/volume] correc arnel for nucleated erythrocytes in Blood by Automated counon 11-22-2024 WBC corrected for nucl RBC Auto (Bld) [#/Vol] Leukocytes [#/volume] corrected for nucleated erythrocytes in Blood by Automated coun High 4.0-11.0 [place] Lymphocytes Auto (Bld) [#/Vo l]on 11-22-2024 Lymphocytes (Bld) [#/Vol] Lymphocytes [#/volume] in Blood by Automated count 1.2-3.8 [place] Lymphocytes/100 WBC Auto (Bl d)on 11-22-2024 Lymphocytes/100 WBC (Bld) Lymphocytes/100 leukocytes in Blood by Automated count Low 20.5-60.0 [place] MCH Auto (RBC) [Entitic mass ]on 11-22-2024 MCH (RBC) [Entitic mass] MCH [Entitic mass] by Automated count 26.7-34.0 [place] MCHC Auto (RBC) [Mass/Vol]on 11-22-2024 MCHC (RBC) [Mass/Vol] MCHC [Mass/volume] by Automated count 29.9-35.2 [place] MCV Auto (RBC) [Entitic vol] on 11-22-2024 MCV (RBC) [Entitic vol] MCV [Entitic volume] by Automated count 81.0-99.0 [place] Monocytes Auto (Bld) [#/Vol] on 11-22-2024 Monocytes (Bld) [#/Vol] Automated blood monocyte count 0.3-0.8 [place] Monocytes/100 WBC Auto (Bld) on 11-22-2024 Monocytes/100 WBC (Bld) Automated monocyte % 1.7-12.0 [place] Neutrophils Auto (Bld) [#/Vo l]on 11-22-2024 Neutrophils (Bld) [#/Vol] Neutrophils [#/volume] in Blood by Automated count High 1.4-6.5 [place] Neutrophils/100 WBC Auto (Bl d)on 11-22-2024 Neutrophils/100 WBC (Bld) Automated neutrophil % 43.0-75.0 [place] No Panel Informationon 11-22 Eosinophils # (Auto) 0.2 10 3/uL 0.0-0.7 [facility] Immature Granulocyte # (Auto) 0.04 10 3/uL High 0.00-0.03 [place] Troponin I High Sensitivity <4.0 pg/mL Low 4.0-51.3 [place] Comment on above: CUT-OFF POINTS HAVE BEEN ESTABLISHED BASED ON THE FOURTHUNIVERSAL DEFINITION OF MYOCARDIAL INFARCTION. THE UPPERREFERENCE LIMIT (URL) OF TROPONIN, DEFINED THE 99THPERCENTILE OF cTnI DISTRIBUTION IN A REFERENCE POPULATION,HAS BEEN CONFIRMED THE DECISION THRESHOLD FOR MIDIAGNOSIS.99TH PERCENTILE = 51.4 PG/MLNOTE: HIGH-SENSITIVITY TROPONIN ASSAY IS NOT INTENDED TO BEUSED IN ISOLATION BUT SHOULD BE INTERPRETED IN CONJUNCTIONWITH OTHER DIAGNOSTIC AND CLINICAL INFORMATION. Platelet mean volume Auto (B ld) [Entitic vol]on 11-22-2024 Platelet mean volume (Bld) [Entitic vol] Platelet mean volume [Entitic volume] in Blood by Automated count Low 9.5-13.5 [place] Platelets Auto (Bld) [#/Vol] on 11-22-2024 Platelets (Bld) [#/Vol] Platelets [#/volume] in Blood by Automated count 150-450 [place] RBC Auto (Bld) [#/Vol]on RBC (Bld) [#/Vol] Erythrocytes [#/volume] in Blood by Automated count 4.20-5.40 [place] Serum or plasma anion gap de terminationon 11-22-2024 Anion gap [Moles/Vol] Serum or plasma anion gap determination [place] Influenza virus B Ag [Presen ce] in Upper respiratory specimen by Rapid immunoassayon 08-11-2024 FLUBV Ag IA.rapid Ql (Nph) Influenza virus B Ag [Presence] in Upper respiratory specimen by Rapid immunoassay [place] No Panel Informationon 08-11 Influenza Type A (Rapid) Positive [place] POC SARS CoV-2 Antigen Negative [place] HCG ( test) IA.rapi d Ql (U)Ordered By: Aziza Romero on 06-23-2024 HCG ( test) Ql (U) Urine human chorionic gonadotropin (hCG) detection by immunoassay [place] HCG,Urineon 06-23-2024 Beta HCG ( test) Ql (U) Negative Normal [facility] Comment on above: Result Comment: PERF ORMED BY: [place] [address] PATHOLOGIST [employer] MANAGER ADAM RICKETTS M.D. Performed By: #### U HCG #### [address] 06-23-2024 L Specimen: [id number] Received: 06/23/24 Status: LAVERNE Perez Num: [id number] Spec Type: Surgical Subm Dr: Aziza Romero DO Tissues: A Colon Biopsy (TRANSVERSE POLYP) Procedures: HE/2, Gross/Micro L4 Age/ Patient Sex Location Account Attending Physician Tessy Heaton 39/F [id number] Aziza Romero DO SPEC NUM: [id number] RECD: 06/23/24 STATUS: LAVERNE REGomez NUM: [id number] CHERY: 06/23/24-3 [facility] DR: Aziza Romero DO ENTERED: 06/23/24-1111 [facility] DR: COLLEEN TYPE: Surgical DEPT: S ENTERED BY: [id number] RECV BY: [id number] ORDERED: HE/2, Gross/Micro L4 ORDERED: HE/2, Gross/Micro [...] submitted in a single cassette. (1, ns, [id number]) CPT Codes 03320 Specimen: [id number] Received: 06/23/24 Status: LAVERNE Perez Num: [id number] Spec Type: Surgical Subm Dr: Aziza Romero DO Tissues: A Colon Biopsy (TRANSVERSE POLYP) Procedures: HE/Pedro, Gross/Micro L4 Patient: Tessy Heaton [id number] (Continued) Signed (signature on file) Adam Ricketts MD 06/24/24 5085 Normal [facility] Basophils Auto (Bld) [#/Vol] on 05-28-2024 Basophils (Bld) [#/Vol] Automated basophil count 0.0-0.1 [place] Basophils/100 WBC Auto (Bld) on 05-28-2024 Basophils/100 WBC (Bld) Automated basophil % 0.2-2.0 [place] Cholesterol in LDL Calc [Mas s/Vol]on 05-28-2024 Cholesterol in LDL [Mass/Vol] Cholesterol in LDL [Mass/volume] in Serum or Plasma by calculation [place] Comment on above: <100 mg/dl [id number] 0-129 mg/dl NEAR OR ABOVE [id number] mg/dl BORDERLINE [id number] mg/dl HIGH>190 mg/dl VERY HIGH Cholesterol in VLDL Calc [Ma ss/Vol]on 05-28-2024 Cholesterol in VLDL [Mass/Vol] Cholesterol in VLDL [Mass/volume] in Serum or Plasma by calculation [place] Eosinophils/100 WBC Auto (Bl d)on 05-28-2024 Eosinophils/100 WBC (Bld) Automated eosinophil % 0.9-7.0 [place] Erythrocyte distribution wid th Auto (RBC) [Ratio]on 05-28-2024 Erythrocyte distribution width (RBC) [Ratio] Erythrocyte distribution width [Ratio] by Automated count 11.0-15.0 [place] Estimated glomerular filtrat ion rate (GFR) non- Americanon 05-28-2024 GFR/1.73 sq M.predicted among non-blacks MDRD (S/P/Bld) [Vol rate/Area] Estimated glomerular filtration rate (GFR) non- >=60 mL/min/1.73m 2 [place] Globulin Calc (S) [Mass/Vol] on 05-28-2024 Globulin (S) [Mass/Vol] Serum globulin measurement by calculation (mass/volume) [place] Hematocrit Auto (Bld) [Volum e fraction]on 05-28-2024 Hematocrit (Bld) [Volume fraction] Hematocrit [Volume Fraction] of Blood by Automated count 36.0-48.0 [place] Hemoglobin [Mass/volume] in Bloodon 05-28-2024 Hemoglobin (Bld) [Mass/Vol] Hemoglobin [Mass/volume] in Blood 12.0-16.0 [place] [facility] - Chemistry and C hemistry - challengeon 05-28-2024 Albumin [Mass/Vol] 3.5 g/dL 3.4-5.0 [facility] ALP [Catalytic activity/Vol] 95 U/L 46-116 [place] ALT [Catalytic activity/Vol] 23 U/L 14-59 [place] AST [Catalytic activity/Vol] 13 U/L Low 15-37 [place] Bilirubin [Mass/Vol] 0.3 mg/dL 0.2-1.0 [facility] Calcium [Mass/Vol] 9.2 mg/dL 8.5-10.1 [facility] Chloride [Moles/Vol] 102 mmol/L 98-107 [facility] Cholesterol [Mass/Vol] 198 mg/dL <=200 [place] Cholesterol in HDL [Mass/Vol] 46 mg/dL 40-60 [place] Comment on above: > or =60 mg/dl - LOW CARDIOVASCULAR RISK<40 mg/dl - HIGH CARDIOVASCULAR RISK CO2 [Moles/Vol] 25.5 mmol/L 21.0-32.0 [facility] Creatinine [Mass/Vol] 0.74 mg/dL 0.55-1.02 [place] GFR/1.73 sq M.predicted MDRD (S/P/Bld) [Vol rate/Area] mL/min/{1.73_m2} >=60 mL/min/1.73m 2 [place] Glucose [Mass/Vol] 97 mg/dL 74-106 [facility] Potassium [Moles/Vol] 4.4 mmol/L 3.5-5.1 [place] Protein [Mass/Vol] 7.3 g/dL 6.4-8.2 [facility] Sodium [Moles/Vol] 138 mmol/L 136-145 [facility] Triglyceride [Mass/Vol] 124 mg/dL <=150 [place] TSH Qn 3.203 m[IU]/L 0.358-3.740 [place] Urea nitrogen [Mass/Vol] 8.0 mg/dL 7.0-18.0 [place] Urea nitrogen/Creatinine [Mass ratio] 10.8 mg/mg [place] [facility] - Hematology and Cell countson 05-28-2024 Immature granulocytes/100 WBC (Bld) 0.5 % 0.0-0.5 [place] Leukocytes [#/volume] correc arnel for nucleated erythrocytes in Blood by Automated counon 05-28-2024 WBC corrected for nucl RBC Auto (Bld) [#/Vol] Leukocytes [#/volume] corrected for nucleated erythrocytes in Blood by Automated coun 4.0-11.0 [place] Lymphocytes Auto (Bld) [#/Vo l]on 05-28-2024 Lymphocytes (Bld) [#/Vol] Lymphocytes [#/volume] in Blood by Automated count 1.2-3.8 [place] Lymphocytes/100 WBC Auto (Bl d)on 05-28-2024 Lymphocytes/100 WBC (Bld) Lymphocytes/100 leukocytes in Blood by Automated count 20.5-60.0 [place] MCH Auto (RBC) [Entitic mass ]on 05-28-2024 MCH (RBC) [Entitic mass] MCH [Entitic mass] by Automated count 26.7-34.0 [place] MCHC Auto (RBC) [Mass/Vol]on 05-28-2024 MCHC (RBC) [Mass/Vol] MCHC [Mass/volume] by Automated count 29.9-35.2 [place] MCV Auto (RBC) [Entitic vol] on 05-28-2024 MCV (RBC) [Entitic vol] MCV [Entitic volume] by Automated count 81.0-99.0 [place] Monocytes Auto (Bld) [#/Vol] on 05-28-2024 Monocytes (Bld) [#/Vol] Automated blood monocyte count 0.3-0.8 [place] Monocytes/100 WBC Auto (Bld) on 05-28-2024 Monocytes/100 WBC (Bld) Automated monocyte % 1.7-12.0 [place] Neutrophils Auto (Bld) [#/Vo l]on 05-28-2024 Neutrophils (Bld) [#/Vol] Neutrophils [#/volume] in Blood by Automated count 1.4-6.5 [place] Neutrophils/100 WBC Auto (Bl d)on 05-28-2024 Neutrophils/100 WBC (Bld) Automated neutrophil % 43.0-75.0 [place] No Panel Informationon 05-28 Eosinophils # (Auto) 0.2 10 3/uL 0.0-0.7 [facility] Immature Granulocyte # (Auto) 0.05 10 3/uL High 0.00-0.03 [place] Platelet mean volume Auto (B ld) [Entitic vol]on 05-28-2024 Platelet mean volume (Bld) [Entitic vol] Platelet mean volume [Entitic volume] in Blood by Automated count Low 9.5-13.5 [place] Platelets Auto (Bld) [#/Vol] on 05-28-2024 Platelets (Bld) [#/Vol] Platelets [#/volume] in Blood by Automated count 150-450 [place] RBC Auto (Bld) [#/Vol]on RBC (Bld) [#/Vol] Erythrocytes [#/volume] in Blood by Automated count 4.20-5.40 [place] Serum or plasma albumin/glob ulin mass ratioon 05-28-2024 Albumin/Globulin [Mass ratio] Serum or plasma albumin/globulin mass ratio [place] Serum or plasma anion gap de terminationon 05-28-2024 Anion gap [Moles/Vol] Serum or plasma anion gap determination [place] Serum or plasma total choles terol/high density lipoprotein (HDL) cholesterol mass grupo 05-28-2024 Cholesterol.total/Ch olesterol in HDL [Mass ratio] Serum or plasma total cholesterol/high density lipoprotein (HDL) cholesterol mass rat [place] Comment on above: 3.3 - 4.4 LOW RISK4. 4 - 7.1 AVERAGE RISK7.1 - 11.0 MODERATE RISK>11.0 HIGH RISK Coding Summary.on 08-21-2022 Coding Summary. CD:[id number] Gh0bWw+PGhlYWQ+PE1FV ZCnK69dlSJjrW4WJ7iMF Q1IBUFXIPJGRR8JDN3cc QA0JXuwX8LtmeMg EyrmgHSeTM89JId6RAO3 oGguQNtvbN9wwRCyN9n4 JnDqMS84zM16MMoqWCPm IyN7FfYwabudtKFx D5abDqFuqACbLxb+PHRh YmxlIHdpZHRoPScxMDAl KlGgfPzbTU9vNp4dHFVd LWNvbGxhcHNlOiBj h6udAYTnTYldIP5viUvv Q3ButON2QILpp0t0Hd10 dHI+QORzOWY0xUdqMHsv a785DqNsw4qgIUH6 jVYqJOzcYZD2O20on8G6 HSOwOJCsMQB5mVM0rG7x nAwbdaffT2YdkAXzZqK9 VKB7eUOhqG9ghIrr fkpzfO4qYjt+H64BIP6I DSQYMC0BUpt6A1VnHtmd dHI+KG25WAWhZF18gBNg tTLes7bbjVi3IfRv XHOrZFD8aGjgADdvf8Fe FJPoH13lkGKcr0D4TUQg xZgorUMlNfWyaOL9sU2a LTjrskjjf7urtpra Gqkjl0ssqv74cF99V53a ZIkrTWBmXYX5AXBaKBLr oHwqjf6zkC7xDy2+IDxj t8hde9vemSs9ViWh AWJwcgYrwRnqGEI6f2Uf Xx77D4BboFjvu3BzBfp8 ny76wSUqk7U5zYF5OIkr FERyhJ2vWXyxRwO5 GAAuVrBllS02aDJyMYqz Pj5lbDeevUrzGJ9eKAEl idtaYKQviQ0kCCSrjQIw aJagEP2hMXKciclv y075JuQzZEL5FKBorAIh K6XgzZ7aAxVpTLQlDRQy S7HyiQJxMXrbC986EDsu CzC0NKPxdzVrX7Na EUAywUnqRsF2f3K3Yk2E o4QianofZJK1VBigYTNf TxC5RlQsSyP5Q9BmPre6 SOQsjIqqOL2kA2Ix HTFcbpljigkzdMP5DQJx HVRvjS36qFHmFIosRl5n f0I2c195CFTjVVEtsG95 He6mrHxpREVptBUW hS7tuhizr5holraoRbNu ZNRuZWx1RYm5PCQsnUge JjVyHLH7QrB0ARK2yDWk nQ7xtMwibnjpyG6r Oyc+F40dbF2cXHX2XMV2 vyjiZIVcxdCiTR34DH40 I1PqDjkfuCKguKO+PGRp sjMfiXmyDR1hCaFm q2cjv2SwTYbkR6QuXGVj HXmfQse6ZTEwRVV7yAY8 kY9rKBGwWVoov6A4dBV6 U4QcgcFjcx1dm1qc NXNkSPzxX42mqNWux5E5 DDMpmCS2RWBvcCwfBoAg cI55Kgq+EJWgfYgqk7Qr Tveyn5pgu5sjyCi0 IjMwJSIgdmFsaWduPSJ0 h9JuJv97K00rBHfmRNAq HKIeVXBkDNKfwRvvks7v iI3fYy1+PGNvbCB3 pXF7uM8gXTRcYvU2TLih R134HnKstWVaAthvy9tb m7cuaPd6ZoAiCFVutcUe wYjlFCI9n5HdHc78 L47pXZdkZGFzQTDyHUVv GDEypJjtak2xtS8wGu1+ GF1jk1hjng05tM39aVD+ CFVjTAE0yAvjWOtt AAMkhO5fPRcdXzX7TMRi MuLozG52eXCzPPrmNa1f nBbxxKcrDT4cZOOukqke w569RbOnp3cwOGZl qSNdZTjbRXW0B00tu1Q7 CIQaQBHcGID2fMV3uR2j bGlnbjogbGVmdDsgdmVy rPvpBXxbPSgtA749 IHRvcDsnPlBhdGllbnQg HrTxRRr4L5QtRdw5VORz fNvmRK5hvFTdJFxeWr0m aZjwtGsdWQ3pAKKs runbz472JzXrk8vuPEOs wHDhYQvaNHK9T94zq5S5 VQImNEPpIMS7gYN5rQ3c bGlnbjogbGVmdDsg jyAnmIxoLRdzGZqtV114 IHRvcDsnPkJpcnRoIERh cIY0MK16OG84jWDna7H9 kXV3X6SmVYXejjti sdgrrLV8LMStSQAdbN73 Jh2kzFhgZd7nRMKgFBM6 UIYddXQkG9JetJ2qHrTx NRBfXRUnD3AzsESp JNdyF184AJcgOvT6KZKn mvAlO5FrGWEuhUvzIeA1 o8H0Oa7TJ4B0ZW93AY46 xFIph4E1mMT4C0Kp NWWnpchownhadRF4BBFz UOHlxE14Dy3uoYqxBd2f DUShXTM4CZIzfNToR7Gl tR1hKyFdJFBvOHAr G4TgqSQfXSxcQ003XArx YjW5RYRdqkRwB4VtDKNh lUubSkN5r0G7Re2XVPf1 UM18DC94oNHhw9F7 iPU0E2KzVABmogiffgln yJC8KPMaGOAktD08Tf5v eMuoNb1jTWUgVLP9RGBe bRZyZ4RarS1jOpZo XFYyZFBgL7PzoSMrAHjb U006ZXjoMxG7IUMzweJa Z9TdAVVevBsaFrZ9q9O6 Zc5OKGZaYL21GJU6 rBI5BJ91DO45G2XdBbbb dGFibGU+PHRhYmxlIHdp ZHRoPScxMDAlJyBzdHls RK3zTv6hBPJuYIHr vZeukXBcAtEby0ymCGSg OIcjSV2vcSnjB8KhdGM0 XEJap3v8Lj82O30hG5Mh dXA+USZjlSY0qIX1 lQ2pAlSgSiV2WQtvD421 YpBcnKGwEswyh8rxj1bp fEj2TjE0ENXynuSkkMcu TXC0j0NcJw45N36l IHdpZHRoPSIxNSUiIHZh iFcrni4omU1uQc7+PGNv iMO0lGW9vU1wElReHbO2 IXohE476FgUnvPJl Faplz9sxk1esrUc9GpBt RQRdsoZhoQjaWAH7x1Bx Bf68N0JrbJnta0EbRke1 ou48aHPqj0I0uXI3 K7WoCACjymwxdIQfdPfl WS1iBRSqbifbQCYlwR1h MVEgG5n7BpHbVwS7ORna T3OuydF7OBNatMZi BEqrGOT8I50fu1I0CLDj XVIcZAU4kTW4nO3egZov bjogbGVmdDsgdmVydGlj XIduFUnyL455INPk mGbbNJTdzS5tWBZlrBEo zSipUC2pWVKwtokbUpSV Q2HdENmAYQXYVuuQWX94 T7HbKnc5XLKllIgt YB1awGPmZOoeSt1umNtq cOoyZW1tMWEqafarQHBi cG2vZHWxyUYjsLuiGG6x BJYwfmyzx102PrMm NUJ4KHPhfSHxZ6QdsI1c RrNxIFDgHGFwR3AmmFFn OMfdT608RQfsVzU0ATPc wmUiO5KrLFVtnGei TrX4t0C8Sv5aRw2wDM6i RIccPZ64BM92zMEhg2T9 aSE5H1VtMSSjsoqdwesf nRA8QQTwMXKucC32 nAGlFGeoPs2ds4F7x388 UENrGEDsiK51Sd1pjRdh KLPjnMIOyI6lujkhs2hj cjogIzAwMDAwMDt0 QOl4LXGrtDskDhWbYJI4 HeP5NDR5kEFieQ6suUww csjvpV8bHtm+MzkgWWVh ncD5Y3DfYwi3AUQr mZelPU9ywHCjEOceQu9i uHmsqQwiRA6dFKWrumrj LYHesX8aLTFsgHIbtCfd YC2oQKAhsgvby592 VaEbDRN4UNCurSVgT9Gh wD6hFxSsXVKyLMZgA8Zy yOIvGBorK324FEhbVnJ2 MWGhxzQwD2QmTNOa dUljNkQ1z4U2Pi1MSU5i hSX9Z1QyVqi8EJFwhCym JR2lyLAwXQlqNs2huHch jWksQU0oRAFbbssi QRPerR0jPBFoiFTnvZym MS2uHCAikgngm227DcLz OYY5PBUywDOsC4GcqO6q EmWjPCBwWWFrZ9Fy mVLxRAsgO549IVcdMqJ2 NBGodaSsA5DtJTJucAgm QnX8c1W6Ln4MTRUyDVKm qTUnXaC3W8EbClqg dHI+VV73CSOyZU57iRLb mEOly4puoGw5KrEyTFSp CXT1fRfeKEqkt2UqXPJk G21deBWua2N3FYBz vJcnwHLwHhFodMJ2lS8r VDucirwzt8eqkkniMknm v1czxb46vT67K20kQNlo ZHRoPSIzMCUiIHZh pCoijl4noD4wUl8+PGNv fFY1aGR6rR0zOpWsVlF9 KBjlJ783GdUivVYrVmhs b0avg4gobKq8RtMy JORoecKoqDgvXKQ5x1Nw Hd65Q85hAQocSXDhPIDy GLQlXBDxfJontx0ktR7b Ii8+OL6ip7qvys52 bA00yVU+CJNsQSP3tSob TGoxRQBwvQ5sRFnnZlV7 KQHlBiZweA98yBChZOek Af6maYjctLwaAF4i KFPjxxsfx657UcUkb5mw ACOsxYSeNGlhFRF7Y44h f2M0LCQvXTWbUIM6vFG0 mV6lwJnmszlggOEp dDsgdmVydGljYWwtYWxp V113TCYbiGhnZmKimONr J9ubegGIER5mNllzgOZ+ OEHvKFB5kSasMRgq SZRjlZ3mPOPlO5c5XkMp VzA1RFjtN0QtywU5SAWt xCIsDTKyxORRiG5lnjra j5moqaccPdUpUVTr KVo6JSf2DGOnqIygQqTk ZAI2RoP9GLB0oVOttV3u gLjmxirpqX9pIki+RklO OjwvdGQ+PHRkIHN0 gNuaYHsyCSBocB2yMGLx T0t3SzXzKfZ6YFckN0Pj lyL8WWJnnWItESRotVGW gP7iwobbn6zjlaye LnMvZPBgXIt7DGs9GUCs rZjhEcPxDII4TfH8DRR5 cVLiyE7wqWvrfsihrZ6b Oyc+TVJOOjwvdGQ+ WRWrXIO3fUopPBxoKCJj vU4fVJXhH3b4CnTbWkN6 ZWwxQ9FrinF8ZFNicSZn ILZafGPVvU0fmfdb q5isvficNaHtLGVpJFu6 RKn4VJXacMpfAyQqSBP4 EqN9JEO5uTVpuY9vqXfq whyhjN3sIag+UGF5 UCF6RP59OV50M6YgPrir dGFibGU+PHRhYmxlIHdp ZHRoPScxMDAlJyBzdHls NL8cXo1hFCFrHWWm bGxh (more content not included)... Normal [facility] Physician Orderon 08-17-2022 Physician Order [id number] #1.00CD:[address] [facility] XR knee RT 3Von 03-14-2022 XR knee RT 3V [facility] [employer] Other XR knee RT 3V [facility] [employer] Other XR knee RT 3V [address] [place] [address] [employer] Other XR knee RT 3[place] [address] [facility] [employer] Other XR knee RT 3V [facility] Other XR knee RT 3V Signed [employer] Other XR knee RT 3V Patient: Tessy Heaton MR#: [id number] [employer] Other XR knee RT 3V 512 [employer] Other XR knee RT 3V : 1985 Acct:[id number] [employer] Other XR knee RT 3V Age/Sex: 37 / F ADM Date: 03/14/22 [employer] Other XR knee RT 3V Loc: [facility] Room: Type: [facility] [employer] Other XR knee RT 3V Attending Dr: Jesse Sewell DO [employer] Other XR knee RT 3V Copies to: Jesse Sewell DO [employer] Other XR knee RT 3V Ordering Provider: Jesse Sewell DO [employer] Other XR knee RT 3V Date of Service: 03/14/22 [employer] Other XR knee RT 3V XR/XR knee RT 3V - NOT FOR ER USE: Acute pain of right knee [employer] Other XR knee RT 3V RIGHT KNEE - 3 views N [employer] Other XR knee RT 3V COMPARISON: None [employer] Other XR knee RT 3V CLINICAL DATA: Chronic right knee pain with radiation up and down the leg. No recent injury. [employer] Other XR knee RT 3V Standing AP, lateral and patellar views were obtained. There is no acute fracture or dislocation. [employer] Other XR knee RT 3V There is moderate lateral subluxation of the patella on both sides, right worse than left. There is [employer] Other XR knee RT 3V no disproportionate joint space narrowing or prominent hypertrophy. There is a trace amount of joint [employer] Other XR knee RT 3V fluid. The soft tissues are diffusely prominent related to body habitus. [employer] Other XR knee RT 3V XR/XR knee RT 3V - NOT FOR ER USE [employer] Other XR knee RT 3V IMPRESSION: [employer] Other XR knee RT 3V BILATERAL PATELLAR SUBLUXATION. [employer] Other XR knee RT 3V NO ACUTE BONY FINDINGS. [employer] Other XR knee RT 3V Impression dictated by: Melissa Gomez M.D.03/14/2022 4:39 PM [employer] Other XR knee RT 3V Dictation Location: [place] [address] [employer] Other XR knee RT 3V Transcribed By: SOCO 03/14/22 2110 [employer] Other XR knee RT 3V Dictated By: Melissa Gomez MD 03/14/22 1630 [employer] Other XR knee RT 3V Signed By: [employer] Other XR knee RT 3V 03/14/22 7939 [employer] Other CBC AUTO DIFFon 03-12-2022 BASO # 0.0 103/ul Normal 0.0-0.[address] [facility] Comment on above: Performed By: #### C BC #### [facility] [address] [place] [address] Dr. Harshal Michaels Basophils/100 WBC (Bld) 0.3 % Normal 0.2-2.[address] [facility] Comment on above: Performed By: #### C BC #### [facility] [address] [place] [address] Dr. Harshal Michaels EO # 0.2 103/ul Normal 0.0-0.[address] [facility] Comment on above: Performed By: #### C BC #### [facility] [address] [place] [address] Dr. Harshal Michaels Eosinophils/100 WBC (Bld) 1.4 % Normal 0.9-7.[address] [facility] Comment on above: Performed By: #### C BC #### [facility] [address] [place] [address] Dr. Harshal Michaels Erythrocyte distribution width (RBC) [Ratio] 13.6 % Normal 11.0-15.[address] [facility] Comment on above: Performed By: #### C BC #### [facility] [address] [place] [address] Dr. Harshal Michaels Hematocrit (Bld) [Volume fraction] 40.6 % Normal 36.0-48.[address] [facility] Comment on above: Performed By: #### C BC #### [facility] [address] [place] [address] Dr. Harshal Michaels Hemoglobin (Bld) [Mass/Vol] 13.3 g/dL Normal 12.0-16.[address] [facility] Comment on above: Performed By: #### C BC #### [facility] [address] [place] [address] Dr. Harshal Michaels IG # 0.06 10e3/ul Critically high 0.00-0.03 [facility] Comment on above: Performed By: #### C BC #### [facility] [address] [place] [address] Dr. Harshal Michaels IG % 0.5 % Normal 0.0-0.[address] [facility] Comment on above: Performed By: #### C BC #### [facility] [address] [place] [address] Dr. Harshal Michaels LYMPH # 2.0 103/ul Normal 1.2-3.8 [facility] Comment on above: Performed By: #### C BC #### [facility] [address] [place] [address] Dr. Harshal Michaels Lymphocytes/100 WBC (Bld) 18.2 % Critically low 20.5-60.[address] [facility] Comment on above: Performed By: #### C BC #### [facility] [address] [place] [address] Dr. Harshal Michaels MANUAL DIFF REQ NO Normal [facility] Comment on above: Performed By: #### C BC #### [facility] [address] [place] [address] Dr. Harshal Michaels MCH (RBC) [Entitic mass] 27.2 pg Normal 26.7-34.[address] [facility] Comment on above: Performed By: #### C BC #### [facility] [address] [place] [address] Dr. Harshal Michaels MCHC (RBC) [Mass/Vol] 32.8 g/dL Normal 29.9-35.2 [facility] Comment on above: Performed By: #### C BC #### [facility] [address] [place] [address] Dr. Harshal Michaels MCV (RBC) [Entitic vol] 83.0 fL Normal 81.0-99.[address] [facility] Comment on above: Performed By: #### C BC #### [facility] [address] [place] [address] Dr. Harshal Michaels MONO # 0.7 103/ul Normal 0.3-0.8 [facility] Comment on above: Performed By: #### C BC #### [facility] [address] [address] [address] Harshal Michaels Monocytes/100 WBC (Bld) 6.1 % Normal 1.7-12.0 [facility] Comment on above: Performed By: #### C BC #### [facility] [address] [address] [address] Harshal Michaels NEUT # 8.1 103/ul Critically high 1.4-6.5 [facility] Comment on above: Performed By: #### C BC #### [facility] [address] [address] [address] Harshal Michaels Neutrophils/100 WBC (Bld) 73.5 % Normal 43.0-75.[address] [facility] Comment on above: Performed By: #### C BC #### [facility] [address] [address] [address] Harshal Michaels Platelet mean volume (Bld) [Entitic vol] 8.2 fL Critically low 9.5-13.[address] [facility] Comment on above: Performed By: #### C BC #### [facility] [address] [address] [address] Harshal Michaels PLT 374 103/ul Normal 150-450 [facility] Comment on above: Performed By: #### C BC #### [facility] [address] [address] [address] Harshal Michaels RBC 4.89 106/ul Normal 4.20-5.40 [facility] Comment on above: Performed By: #### C BC #### [facility] [address] [address] [address] Harshal Michaels WBC 11.1 103/ul Critically high 4.0-11.0 [facility] Comment on above: Performed By: #### C BC #### [facility] [address] [address] [address] Harshal Michaels LIPID PROFILEon 03-12-2022 CHOL-HDL RATIO NORM SEE BELOW Normal [facility] Comment on above: Result Comment: 3.3 - 4.4 LOW RISK 4.4 - 7.1 AVERAGE RISK 7.1 - 11.0 MODERATE RISK >11.0 HIGH RISK Performed By: #### C MP, LIPID #### [facility] [address] [address] [address] Harshal Michaels Cholesterol [Mass/Vol] 176 mg/dL Normal <=[address] [facility] Comment on above: Performed By: #### C MP, LIPID #### [facility] [address] [address] [address] Harshal Michaels Cholesterol in HDL [Mass/Vol] 40 mg/dL Normal 40-[address] [facility] Comment on above: Performed By: #### C MP, LIPID #### [facility] [address] [place] [address] Dr. Harshal Michaels Cholesterol in LDL [Mass/Vol] 115.6 mg/dL Normal [facility] Comment on above: Performed By: #### C MP, LIPID #### [facility] [address] [place] [address] Dr. Harshal Michaels Cholesterol.total/Ch olesterol in HDL [Mass ratio] 4.4 {ratio} Normal [facility] Comment on above: Performed By: #### C MP, LIPID #### [facility] [address] [place] [address] [address] Harshal Michaels HDL NORMAL > or = 60 mg/dl - LOW CARDIOVASCULAR RISK <40 mg/dl - HIGH CARDIOVASCULAR RISK Normal [facility] Comment on above: Performed By: #### C MP, LIPID #### [facility] [address] [place] [address] [address] Harshal Michaels LDL CALC NORMAL SEE BELOW Normal [facility] Comment on above: Result Comment: <100 mg/dl OPTIMAL 100 - 129 mg/dl NEAR OR ABOVE OPTIMAL 130 - 159 mg/dl BORDERLINE HIGH 160 - 189 mg/dl HIGH >190 mg/dl VERY HIGH Performed By: #### C MP, LIPID #### [facility] [address] [place] [address] Dr. Harshal Michaels Triglyceride [Mass/Vol] 102 mg/dL Normal <=[address] [facility] Comment on above: Performed By: #### C MP, LIPID #### [facility] [address] [place] [address] Dr. Harshal Michaels VLDL CALC 20.4 mg/dL Normal [facility] Comment on above: Performed By: #### C MP, LIPID #### [facility] [address] [place] [address] Dr. Harshal Michaels PROF 14(COMP METB)on 022 Albumin [Mass/Vol] 3.5 g/dL Normal 3.4-5.0 [facility] Comment on above: Performed By: #### C MP, LIPID #### [facility] [address] [place] [address] Dr. Harshal Michaels Albumin/Globulin [Mass ratio] 0.9 {ratio} Normal [facility] Comment on above: Performed By: #### C MP, LIPID #### [facility] [address] [place] [address] Dr. Harshal Michaels ALP [Catalytic activity/Vol] 99 U/L Normal 46-[address] [facility] Comment on above: Performed By: #### C MP, LIPID #### [facility] [address] [place] [address] Dr. Harshal Michaels ALT [Catalytic activity/Vol] 25 U/L Normal 14-[address] [facility] Comment on above: Performed By: #### C MP, LIPID #### [facility] [address] [place] [address] Dr. Harshal Michaels Anion gap [Moles/Vol] 12.1 mmol/L Normal [facility] Comment on above: Performed By: #### C MP, LIPID #### [facility] [address] [place] [address] Dr. Harshal Michaels AST [Catalytic activity/Vol] 13 U/L Critically low 15-[address] [facility] Comment on above: Performed By: #### C MP, LIPID #### [facility] [address] [place] [address] Dr. Harshal Michaels Bilirubin [Mass/Vol] 0.3 mg/dL Normal 0.2-1.[address] [facility] Comment on above: Performed By: #### C MP, LIPID #### [facility] [address] [place] [address] Dr. Harshal Michaels Calcium [Mass/Vol] 8.8 mg/dL Normal 8.5-10.1 [facility] Comment on above: Performed By: #### C MP, LIPID #### [facility] [address] [place] [address] Dr. Harshal Michaels Chloride [Moles/Vol] 102 mmol/L Normal 98-[address] [facility] Comment on above: Performed By: #### C MP, LIPID #### [facility] [address] [place] [address] Dr. Harshal Michaels CO2 [Moles/Vol] 27.1 mmol/L Normal 21.0-32.0 [facility] Comment on above: Performed By: #### C MP, LIPID #### [facility] [address] [place] [address] Dr. Harshal Michaels Creatinine [Mass/Vol] 0.57 mg/dL Normal 0.55-1.[address] [facility] Comment on above: Performed By: #### C MP, LIPID #### [facility] [address] [place] [address] Dr. Harshal Michaels EGFR-AF CITIZEN OF [place] >60 Normal >=60 [facility] Comment on above: Performed By: #### C MP, LIPID #### [facility] [address] [place] [address] Dr. Harshal Michaels EGFR-NON AF CITIZEN OF THE [place] >60 Normal >=[address] [facility] Comment on above: Performed By: #### C MP, LIPID #### [facility] [address] [place] [address] Dr. Harshal Michaels Globulin (S) [Mass/Vol] 3.8 g/dL Normal [facility] Comment on above: Performed By: #### C MP, LIPID #### [facility] [address] [place] [address] Dr. Harshal Michaels Glucose [Mass/Vol] 111 mg/dL Critically high 74-106 T [facility] Comment on above: Performed By: #### C MP, LIPID #### [facility] [address] [place] [address] Dr. Harshal Michaels Potassium [Moles/Vol] 4.2 mmol/L Normal 3.5-5.1 [facility] Comment on above: Performed By: #### C MP, LIPID #### [facility] [address] [place] [address] Dr. Harshal Michaels Protein [Mass/Vol] 7.3 g/dL Normal 6.4-8.2 [facility] Comment on above: Performed By: #### C MP, LIPID #### [facility] [address] [place] [address] [address] Harshal Michaels Sodium [Moles/Vol] 137 mmol/L Normal 136-145 [facility] Comment on above: Performed By: #### C MP, LIPID #### [facility] [address] [place] [address] Dr. Harshal Michaels Urea nitrogen [Mass/Vol] 8.0 mg/dL Normal 7.0-18.[address] [facility] Comment on above: Performed By: #### C MP, LIPID #### [facility] [address] [place] [address] Dr. Harshal Michaels Urea nitrogen/Creatinine [Mass ratio] 14.0 mg/mg Normal [facility] Comment on above: Performed By: #### C MP, LIPID #### [facility] [address] [place] [address] Dr. Harshal Michaels [facility]12 SARS-CoV-2 (COVID-19) RNA PACHECO+probe Ql (Unsp spec) Not detected Normal NOT DETECTED [facility] Comment on above: Result Comment: This test is not yet approved or cleared by the [place] FDA. When there are no FDA-approved or cleared tests available, and other criteria are met, FDA can make tests available under an emergency access mechanism called an Emergency Use Authorization (EUA). The EUA for this test is supported by the [place] of Health and Human Service's (HHS's) declaration [...] SARS-CoV-2. Performed By: #### C VDTBH #### [facility] [address] [place] [address] Dr. Harshal Michaels GROUP A STREP CULTUREon 02-12 S. pyogenes Ag Ql (Unsp spec) Culture Observations: NEGATIVE FOR GROUP A STREPTOCOCCUS. Normal [facility] Comment on above: Performed By: #### S CONCHIS GRASTCX #### [facility] [address] [place] [address] Dr. Harshal Michaels STREPT SCREENon 03-02-2022 STREP SCREEN A Negative Normal NEGATIVE [facility] Comment on above: Performed By: #### S CONCHIS, GRASTCX #### [facility] [address] [place] [address] Dr. Harshal Michaels PAP ACOG PANEL 2: 30 to 65on 02-27-2022 . . Normal [facility] Comment on above: Result Comment: Perf ormed at: WB Performed By: #### [id number] #### [facility] [address] [place] [address] Dr. Harshal Michaels Age Gdln ACOG Testing 30-[address] [facility] Comment on above: Performed By: #### [id number] #### [facility] [address] [place] [address] Dr. Harshal Michaels DIAGNOSIS: Comment Normal [facility] Comment on above: Result Comment: NEGA TIVE FOR INTRAEPITHELIAL LESION OR MALIGNANCY. Performed at: WB Performed By: #### [id number] #### [facility] [address] [place] [address] Dr. Harshal Michaels HPV Aptima Negative Normal Negative [facility] Comment on above: Result Comment: This nucleic acid amplification test detects fourteen high-risk HPV types (16,18,31,33,35,39,45,51,52,56,58,59,66,68) without differentiation. Performed at: =G Performed By: #### [id number] #### [facility] [address] [place] [address] Dr. Harshal Michaels Methodology: Comment Normal [facility] Comment on above: Result Comment: This liquid based ThinPrep(R) pap test was screened with the use of an image guided system. Performed at: WB Performed By: #### [id number] #### [facility] [address] [place] [address] Dr. Harshal Michaels Note: Comment Normal [facility] Comment on above: Result Comment: The Pap smear is a screening test designed to aid in the detection of premalignant and malignant conditions of the uterine cervix. It is not a diagnostic procedure and should not be used as the sole means of detecting cervical cancer. Both false-positive and false-negative reports do occur. . Performed at: WB Performed By: #### [id number] #### [facility] [address] [place] [address] Dr. Harshal Michaels Performed by: Comment Normal [facility] Comment on above: Result Comment: Yobani Caputo, Data Typist (ASCP) Performed at: WB Performed By: #### [id number] #### [facility] [address] [place] [address] Dr. Harshal Michaels Specimen adequacy: Comment Normal [facility] Comment on above: Result Comment: Sati sfactory for evaluation. No endocervical component is identified. Performed at: WB Performed By: #### [id number] #### [facility] [address] [place] [address] Dr. Harshal Michaels MG MAMM DIAGNOSTIC 3D ROGE CA Don 01-12-2022 MG MAMM DIAGNOSTIC 3D ROGE CAD Patient: TESSY HEATON Exam Date: 01/12/2022 : 1985 Gender:F Ordering : DR TATE ADDISON M.D. Admission #: [id number] Family : Order #: [id number] CLICK HERE TO VIEW EXAM RADIOLOGY REPORT [...] Treatments None Family Cancers None LOCATION: [facility] BREAST COMPOSITION: Almost entirely fatty. FINDINGS: DIAGNOSTIC [...] Edwards MD on 01/12/2022 at 14:54 Normal [facility] US BREAST LEFT LIMITEDon US BREAST LEFT LIMITED Patient: TESSY HEATON Exam Date: 01/12/2022 : 1985 Gender:F Ordering : DR TATE ADDISON M.D. Admission #: [id number] Family : Order #: [id number] CLICK HERE TO VIEW EXAM RADIOLOGY REPORT [...] Treatments None Family Cancers None LOCATION: [facility] BREAST COMPOSITION: Almost entirely fatty. FINDINGS: DIAGNOSTIC [...] Edwards MD on 01/12/2022 at 14:54 Normal [facility] Covid-19 PCR (CVDTB)on SARS-CoV-2 (COVID-19) RNA PACHECO+probe Ql (Unsp spec) Not detected Normal NOT DETECTED [facility] Comment on above: Result Comment: This test is not yet approved or cleared by the [place] FDA. When there are no FDA-approved or cleared tests available, and other criteria are met, FDA can make tests available under an emergency access mechanism called an Emergency Use Authorization (EUA). The EUA for this test is supported by the [place] of Health and Human Service's (HHS's) declaration [...] consistent with SARS-CoV-2. Performed By: #### C [facility] #### [facility] [address] [place] [address] Dr. Harshal Michaels Vital Signs Date Time Vital Sign Value Performing Clinician Facility 04-19-2025 09:38-0400 Body height 162.56 cm Tate Addison MD Work Phone: [place] 04-19-2025 09:38-0400 Body mass index (BMI) [Ratio] 45.6 kg/m2 Tate Addison MD Work Phone: [place] 04-19-2025 09:38-0400 Body weight 120.65 kg Tate Addison MD Work Phone: [place] 04-19-2025 09:38-0400 Diastolic blood pressure 93 mm[Hg] Tate Addison MD Work Phone: [place] 04-19-2025 09:38-0400 Heart rate 74 /min Tate Addison MD Work Phone: [place] 04-19-2025 09:38-0400 Systolic blood pressure 125 mm[Hg] Tate Addison MD Work Phone: [place] 04-12-2025 13:09-0400 Body height 162.6 cm Bob Arriaga MD Work Phone: [facility] 04-12-2025 13:09-0400 Body mass index (BMI) [Ratio] 46.35 kg/m2 Bob Arriaga MD Work Phone: [facility] 04-12-2025 13:09-0400 Body weight 122.47 kg Bob Arriaga MD Work Phone: [facility] 04-12-2025 13:09-0400 Diastolic blood pressure 91 mm[Hg] Bob Arriaga MD Work Phone: [facility] 04-12-2025 13:09-0400 Heart rate 77 /min Bob Arriaga MD Work Phone: [facility] 04-12-2025 13:09-0400 Systolic blood pressure 125 mm[Hg] Bob Arriaga MD Work Phone: [facility] 03-04-2025 09:57-0400 Body height 162.56 cm Tate Addison MD Work Phone: [place] 03-04-2025 09:57-0400 Body mass index (BMI) [Ratio] 48.4 kg/m2 Tate Addison MD Work Phone: [place] 03-04-2025 09:57-0400 Body weight 127.91 kg Tate Addison MD Work Phone: [place] 03-04-2025 09:57-0400 Diastolic blood pressure 83 mm[Hg] Tate Addison MD Work Phone: [place] 03-04-2025 09:57-0400 Heart rate 72 /min Tate Addison MD Work Phone: [place] 03-04-2025 09:57-0400 Systolic blood pressure 120 mm[Hg] Tate Addison MD Work Phone: [place] 12-15-2024 15:20-0400 Diastolic blood pressure 76 mm[Hg] Tate Addison MD Work Phone: [place] 12-15-2024 15:20-0400 Heart rate 72 /min Tate Addison MD Work Phone: [place] 12-15-2024 15:20-0400 Respiratory rate 18 /min Tate Addison MD Work Phone: [place] 12-15-2024 15:20-0400 SaO2% (BldA) [Mass fraction] 97 % Tate Addison MD Work Phone: [place] 12-15-2024 15:20-0400 Systolic blood pressure 122 mm[Hg] Tate Addison MD Work Phone: [place] 12-15-2024 12:57-0400 Body height 162.56 cm Tate Addison MD Work Phone: [place] 12-15-2024 12:57-0400 Body weight 136.07 kg Tate Addison MD Work Phone: [place] 11-26-2024 11:34-0400 Body height 162.56 cm [facility] 11-26-2024 11:34-0400 Body mass index (BMI) [Ratio] 52.5 kg/m2 [place] 11-26-2024 11:34-0400 Body weight 138.79 kg [facility] 11-26-2024 11:34-0400 Diastolic blood pressure 91 mm[Hg] [place] 11-26-2024 11:34-0400 Heart rate 96 /min [facility] 11-26-2024 11:34-0400 Systolic blood pressure 131 mm[Hg] [place] 11-16-2024 13:18-0400 Body height 162.56 cm [facility] 11-16-2024 13:18-0400 Body mass index (BMI) [Ratio] 52.3 kg/m2 [place] 11-16-2024 13:18-0400 Body weight 138.34 kg [facility] 11-16-2024 13:18-0400 Diastolic blood pressure 93 mm[Hg] [place] 11-16-2024 13:18-0400 Heart rate 84 /min [facility] 11-16-2024 13:18-0400 Systolic blood pressure 150 mm[Hg] [place] 09-10-2024 13:47-0500 Body height 162.56 cm Tate Addison MD Work Phone: [place] 09-10-2024 13:47-0500 Body mass index (BMI) [Ratio] 53 kg/m2 Tate Addison MD Work Phone: [place] 09-10-2024 13:47-0500 Body weight 140.16 kg Tate Addison MD Work Phone: [place] 09-10-2024 13:47-0500 Diastolic blood pressure 85 mm[Hg] Tate Addison MD Work Phone: [place] 09-10-2024 13:47-0500 Heart rate 87 /min Tate Addison MD Work Phone: [place] 09-10-2024 13:47-0500 Systolic blood pressure 128 mm[Hg] Tate Addison MD Work Phone: [place] 08-11-2024 09:28-0500 Body height 162.56 cm Tate Addison MD Work Phone: [place] 08-11-2024 09:28-0500 Body mass index (BMI) [Ratio] 53.4 kg/m2 Tate Addison MD Work Phone: [place] 08-11-2024 09:28-0500 Body temperature 98.9 [degF] Tate Addison MD Work Phone: [place] 08-11-2024 09:28-0500 Body weight 141.29 kg Tate Addison MD Work Phone: [place] 08-11-2024 09:28-0500 Diastolic blood pressure 88 mm[Hg] Tate Addison MD Work Phone: [place] 08-11-2024 09:28-0500 Heart rate 108 /min Tate Addison MD Work Phone: [place] 08-11-2024 09:28-0500 SaO2% (BldA) [Mass fraction] 97 % Tate Addison MD Work Phone: [place] 08-11-2024 09:28-0500 Systolic blood pressure 138 mm[Hg] Tate Addison MD Work Phone: [place] 08-01-2024 10:34-0500 Body height 162.56 cm Tate Addison MD Work Phone: [place] 08-01-2024 10:34-0500 Body mass index (BMI) [Ratio] 53.7 kg/m2 Tate Addison MD Work Phone: [place] 08-01-2024 10:34-0500 Body temperature 98 [degF] Tate Addison MD Work Phone: [place] 08-01-2024 10:34-0500 Body weight 141.97 kg Tate Addison MD Work Phone: [place] 08-01-2024 10:34-0500 Diastolic blood pressure 88 mm[Hg] Tate Addison MD Work Phone: [place] 08-01-2024 10:34-0500 Heart rate 78 /min Tate Addison MD Work Phone: [place] 08-01-2024 10:34-0500 Respiratory rate 16 /min Tate Addison MD Work Phone: [place] 08-01-2024 10:34-0500 SaO2% (BldA) [Mass fraction] 95 % Tate Addison MD Work Phone: [place] 08-01-2024 10:34-0500 Systolic blood pressure 135 mm[Hg] Tate Addison MD Work Phone: [place] 06-23-2024 11:03-0500 Diastolic blood pressure 84 mm[Hg] Tate Addison MD Work Phone: [place] 06-23-2024 11:03-0500 Heart rate 78 /min Tate Addison MD Work Phone: [place] 06-23-2024 11:03-0500 Respiratory rate 16 /min Tate Addison MD Work Phone: [place] 06-23-2024 11:03-0500 SaO2% (BldA) [Mass fraction] 98 % Tate Addison MD Work Phone: [place] 06-23-2024 11:03-0500 Systolic blood pressure 130 mm[Hg] Tate Addison MD Work Phone: [place] 06-23-2024 09:48-0500 Body height 162.56 cm Tate Addison MD Work Phone: [place] 06-23-2024 09:48-0500 Body weight 136.08 kg Tate Addison MD Work Phone: [place] 05-19-2024 14:33-0500 Body height 162.56 cm [facility] 05-19-2024 14:33-0500 Body mass index (BMI) [Ratio] 53.1 kg/m2 [place] 05-19-2024 14:33-0500 Body weight 140.61 kg [facility] 05-19-2024 14:33-0500 Diastolic blood pressure 85 mm[Hg] [place] 05-19-2024 14:33-0500 Heart rate 98 /min [facility] 05-19-2024 14:33-0500 Systolic blood pressure 132 mm[Hg] [place] 01-24-2024 14:17-0400 Body height 162.56 cm [facility] 01-24-2024 14:17-0400 Body mass index (BMI) [Ratio] 52.3 kg/m2 [place] 01-24-2024 14:17-0400 Body weight 138.34 kg [facility] 01-24-2024 14:17-0400 Diastolic blood pressure 87 mm[Hg] [place] 01-24-2024 14:17-0400 Heart rate 71 /min [facility] 01-24-2024 14:17-0400 Systolic blood pressure 121 mm[Hg] [place] 08-13-2023 15:00-0500 Body height 162.56 cm Tate Addison Other [facility] [employer] Other 08-13-2023 15:00-0500 Body mass index (BMI) [Ratio] 52.52 kg/m2 Tate Addison Other [facility] [employer] Other 08-13-2023 15:00-0500 Body weight 138.8 kg Tate Addison Other [facility] [employer] Other 08-13-2023 15:00-0500 Diastolic blood pressure 85 mm[Hg] Tate Adidson Other [facility] [employer] Other 08-13-2023 15:00-0500 Systolic blood pressure 137 mm[Hg] Tate Addison Other [facility] [employer] Other 07-02-2023 07:30-0500 Diastolic blood pressure 87 mm[Hg] MD Tate Addison Work Phone: [place] 07-02-2023 07:30-0500 Heart rate 65 /min MD Tate Addison Work Phone: [place] 07-02-2023 07:30-0500 Respiratory rate 16 /min MD Tate Addison Work Phone: [place] 07-02-2023 07:30-0500 SaO2% (BldA) [Mass fraction] 96 % MD Tate Addison Work Phone: [place] 07-02-2023 07:30-0500 Systolic blood pressure 131 mm[Hg] MD Tate Addison Work Phone: [place] 07-02-2023 06:14-0500 Body height 162.56 cm MD Tate Addison Work Phone: [place] 07-02-2023 06:14-0500 Body temperature 98.4 [degF] MD Tate Addison Work Phone: [place] 07-02-2023 06:14-0500 Body weight 136.07 kg MD Tate Addison Work Phone: [place] 06-04-2023 10:45-0500 Body height 162.56 cm Tate Addison Other [facility] [employer] Other 06-04-2023 10:45-0500 Body mass index (BMI) [Ratio] 51.9 kg/m2 Tate Addison Other [facility] [employer] Other 06-04-2023 10:45-0500 Body weight 137.17 kg Tate Addison Other [employer] Other 06-04-2023 10:45-0500 Diastolic blood pressure 94 mm[Hg] Tate Addison Other [employer] Other 06-04-2023 10:45-0500 Systolic blood pressure 140 mm[Hg] Tate Addison Other [employer] Other 02-25-2023 14:00-0400 Body height 162.56 cm Tate Addison Other [employer] Other 02-25-2023 14:00-0400 Body mass index (BMI) [Ratio] 52 kg/m2 Tate Addison Other [employer] Other 02-25-2023 14:00-0400 Body weight 137.44 kg Tate Addison Other [employer] Other 02-25-2023 14:00-0400 Diastolic blood pressure 87 mm[Hg] Tate Addison Other [employer] Other 02-25-2023 14:00-0400 Systolic blood pressure 143 mm[Hg] Tate Addison Other [employer] Other 04-27-2022 11:00-0400 Body height 162.56 cm Jesse Sewell Other [facility] Other 04-27-2022 11:00-0400 Body mass index (BMI) [Ratio] 49.77 kg/m2 Jesse [place] Other [facility] Other 04-27-2022 11:00-0400 Body weight 131.54 kg Jesse [place] Other [facility] Other 03-14-2022 16:30-0400 Body height 162.56 cm Jesse Sewell Other [employer] Other 03-14-2022 16:30-0400 Body mass index (BMI) [Ratio] 49.77 kg/m2 [place] Other [facility] Other 03-14-2022 16:30-0400 Body weight 131.54 kg Jesse [place] Other [facility] Other 05-09-2021 12:00-0400 Body height 162.56 cm Evert Addison Other [employer] Other 05-09-2021 12:00-0400 Body mass index (BMI) [Ratio] 49.77 kg/m2 Evert Addison Other [employer] Other 05-09-2021 12:00-0400 Body weight 131.54 kg Evert Addison Other [employer] Other Encounters Encounter Date Encounter Type Care Provider Facility Start: 04-19-2025 End: 04-19-2025 ambulatory Tate Addison MD Work Phone: [facility] Work Phone: Start: 04-19-2025 End: 04-19-2025 Patient encounter procedure Aziza Romero [facility] Work Phone: Start: 04-12-2025 End: 04-12-2025 Bamphilipo flowsalexi Arriaga MD [facility] Start: 04-12-2025 End: 04-12-2025 Stephanie Arriaga MD [facility] Start: 04-12-2025 End: 04-12-2025 Office outpatient new 45 minutes Bob Arriaga MD Work Phone: [facility] Comment on above: Chronic sialoadeniti s (Primary Dx); Perichondritis of left pinna Start: 04-12-2025 End: 04-12-2025 ambulatory BOB ARRIAGA Not Available Start: 03-04-2025 End: 03-04-2025 ambulatory Tate Addison MD Work Phone: [facility] Work Phone: Start: 03-04-2025 End: 03-04-2025 Patient encounter procedure Tate Addison MD [facility] Work Phone: Start: 01-20-2025 Non-patient / Non-visit Елена Zimmerman [facility] Work Phone: Start: 01-18-2025 Non-patient / Non-visit Елена Zimmerman [facility] Work Phone: Start: 12-15-2024 Non-patient / Non-visit Tate Addison MD Work Phone: [facility] Work Phone: Start: 12-15-2024 End: 12-15-2024 Admission to same day surgery center Tate Addison MD Work Phone: [facility] Work Phone: Start: 12-15-2024 End: 12-15-2024 ambulatory Tate Addison Facility:[place] Start: 11-26-2024 End: 11-26-2024 ambulatory [facility] Work Phone: Start: 11-26-2024 End: 11-26-2024 Patient encounter procedure [facility] Work Phone: Start: 11-24-2024 Non-patient / Non-visit [facility] Work Phone: Start: 11-22-2024 Non-patient / Non-visit [facility] Work Phone: Start: 11-16-2024 End: 11-16-2024 ambulatory [facility] Work Phone: Start: 11-16-2024 End: 11-16-2024 Patient encounter procedure [facility] Work Phone: Start: 09-10-2024 End: 09-10-2024 ambulatory Tate Addison MD Work Phone: [facility] Work Phone: Start: 09-10-2024 End: 09-10-2024 Patient encounter procedure Tate Addison MD Work Phone: [facility] Work Phone: Start: 08-11-2024 End: 08-11-2024 ambulatory Tate Addison MD Work Phone: [facility] Work Phone: Start: 08-11-2024 End: 08-11-2024 Patient encounter procedure Tate Addison MD Work Phone: [facility] Work Phone: Start: 08-01-2024 End: 08-01-2024 ambulatory Tate Addison MD Work Phone: [facility] Work Phone: Start: 08-01-2024 End: 08-01-2024 Patient encounter procedure Tate Addison MD Work Phone: [facility] [place] Work Phone: Start: 06-25-2024 Non-patient / Non-visit Tate Addison MD Work Phone: [facility] Work Phone: Start: 06-23-2024 Non-patient / Non-visit Tate Addison MD Work Phone: [facility] Work Phone: Start: 06-23-2024 End: 06-23-2024 Admission to same day surgery center Tate Addison MD Work Phone: [facility] Work Phone: Start: 06-23-2024 End: 06-23-2024 ambulatory Aziza Romero Facility:[place] Start: 05-28-2024 Non-patient / Non-visit Tate Addison MD Work Phone: [facility] Work Phone: Start: 05-19-2024 Patient encounter status [place] Start: 05-19-2024 End: 05-19-2024 ambulatory [facility] Work Phone: Start: 05-19-2024 End: 05-19-2024 Encounter for general adult medical examination without abnormal findings [place] Start: 05-19-2024 End: 05-19-2024 Patient encounter procedure [facility] Work Phone: Start: 01-24-2024 End: 01-24-2024 ambulatory [facility] Work Phone: Start: 01-24-2024 End: 01-24-2024 Patient encounter procedure [facility] Work Phone: Start: 08-22-2023 End: 08-22-2023 ambulatory Tate Addison Other [employer] Other Start: 08-22-[address] [facility] Start: 08-13-2023 End: 08-13-2023 ambulatory Tate Addison Other [employer] Other Start: 08-13-2023 Office outpatient vi sit [address] [facility] Start: 07-12-2023 End: 07-12-2023 ambulatory Jesse Sewell Other [employer] Other Start: 07-12-2023 Postop follow up vis it related to original px Jesse Sewell [facility] Start: 07-02-2023 End: 07-02-2023 Admission to same day surgery center MD Tate Addison Work Phone: [facility] [employer] Start: 07-02-2023 End: 07-02-2023 ambulatory MD Tate Addison Work Phone: [facility] Work Phone: Start: 07-01-2023 End: 07-01-2023 ambulatory Tate Addison Other [employer] Other Start: 07-01-[address] [facility] Start: 06-27-2023 End: 06-27-2023 ambulatory Tate Addison Other [employer] Other Start: 06-27-2023 Telephone encounter Tate Addison [facility] Start: 06-04-2023 End: 06-04-2023 ambulatory Tate Addison Other [employer] Other Start: 06-04-2023 Office outpatient vi sit [address] [facility] Start: 03-05-2023 End: 03-05-2023 ambulatory Tate Addison Other [employer] Other Start: 03-05-2023 [address] Tate Addison [facility] Start: 03-04-2023 End: 03-04-2023 ambulatory Tate Addison Other [employer] Other Start: 03-04-2023 [address] Addison [facility] Start: 02-25-2023 End: 02-25-2023 Departed Referred MD Tate Addison Work Phone: [facility] [place] Work Phone: Start: 02-25-2023 End: 02-25-2023 ambulatory Tate Addison Other [employer] Other Start: 02-25-2023 Encounter for genera l adult medical examination without abnormal findings Tate Addison [facility] Start: 02-25-2023 Encounter for gynecological examination (general) (routine) without abnormal findings Tate Addison [facility] Start: 02-25-2023 Periodic preventive med est patient 40-[address]yrs [address] [facility] Start: 02-14-2023 End: 02-14-2023 ambulatory Tate Addison Other [employer] Other Start: 02-14-2023 Telephone encounter Tate PRIDE [facility] Start: 08-16-2022 End: 08-17-2022 ambulatory Amber Sheriff Facility:[facility] Start: 04-27-2022 End: 04-27-2022 ambulatory Jesse Sewell Other [employer] Other Start: 04-27-2022 Office outpatient vi sit 15 minutes Jesse Sewell [facility] Start: 04-10-2022 End: 04-10-2022 ambulatory Jesse India Other [employer] Other Start: 04-10-2022 Telephone encounter Jesse LEDEZMA [facility] Start: 03-29-2022 End: 03-29-2022 ambulatory Jesseriky Sewell Other [employer] Other Start: 03-29-2022 Telephone encounter Jesse LEDEZMA [facility] Start: 03-27-2022 End: 04-17-2022 ambulatory JESSE SEWELL Facility:[facility] Start: 03-14-2022 End: 03-14-2022 Patient encounter procedure MD Tate Addison Work Phone: [facility] Start: 03-14-2022 End: 03-14-2022 ambulatory Jesse Sewell Other [employer] Other Start: 03-14-2022 Office outpatient ne w 30 minutes Jesse Sewell [facility] Start: 03-13-2022 Encounter for genera l adult medical examination without abnormal findings DR TATE ADDISON [facility] Start: 03-12-2022 End: 03-13-[address] TATE ADDISON Facility:[facility] Start: 03-12-2022 End: 03-13-2022 Encounter for general adult medical examination without abnormal findings DR TATE ADDISON Facility:[facility] Start: 03-09-2022 Adult health examination Katarina Addison Other [employer] Other Start: 03-09-2022 Encounter for genera l adult medical examination with abnormal findings Tate Addison Other [employer] Other Start: 03-09-2022 Encounter for genera l adult medical examination without abnormal findings Tate Addison Other [employer] Other Start: 03-09-2022 Problem, abnormal examination Tate Addison Other [employer] Other Start: 03-02-2022 End: 03-02-[address] TATE ADDISON Facility:[facility] Start: 02-23-2022 End: 02-23-[address] TATE ADDISON Facility:[facility] Start: 01-12-2022 End: 01-13-[address] TATE ADDISON Facility:[facility] Start: 07-21-2021 End: 07-21-[address] TATE ADDISON Facility:[facility] Start: 05-09-2021 Postop follow up vis it related to original px Evert Addison [facility] Procedures Date Procedure Procedure Detail Performing Clinician Start: 12-15-2024 Esophagogastroduodenoscopy Tate Addison MD Work Phone: Start: 06-23-2024 Colonoscopy Tate Addison MD Work Phone: Start: 07-02-2023 Release of trigger finger MD Tate aldridge Work Phone: Start: 03-14-2022 X-ray of right knee MD Tate Addison Work Phone: Start: 10-03-2018 Venereal disease screening Tate Addison Other Start: 09-03-2018 Screening mammography Tate Addison Other Start: 11-11-2013 General examination of patient Tate Sarina polo Other Viral screening Tate Addison Other Plan of Treatment Date Care Activity Detail Author Start: 04-12-2025 End: 04-12-2025 Patient encounter procedure 04/12/2025 1:10 PM EDT Office Visit [facility] [address] [facility] [email or web address] [address] [place] [id number] Bob Arriaga MD [address] [facility] [address] [place] [address] Arrived [facility] Comment on above: Arrived Start: 03-15-2025 Influenza vaccination Influenza Vacc ine (#1) [facility] Start: 03-04-2025 Patient referral [facility] Work Phone: Start: 12-15-2024 [place] Start: 06-23-2024 [place] Start: 05-19-2024 Patient referral [facility] Work Phone: Start: 07-02-2023 [place] Start: 02-25-2023 [place] Start: 2023 Screening for malignant neoplasm of breast Mammogram [facility] Start: 2013 Screening for malignant neoplasm of cervix [facility] Start: 02-05-2004 Screening for malignant neoplasm of cervix Pap Smear [facility] Comprehensive metabolic 2000 panel - Serum or Plasma [place] CT Neck WO contrast [facility] MG Breast - bilatera l Screening [place] Patient Education [facility] Work Phone: Patient referral [facility] Work Phone: XR Chest 2 Views [facility] Immunizations Immunization Date Immunization Notes Care Provider Fa cility 07-10-2021 COVID-19 Vaccine Pfi zer - Documentation Purposes Only Tate Addison Other [place] 05-12-2009 novel [id number], preservative-free, injectable Bob Arriaga MD Work Phone: [facility] 05-03-2008 influenza virus vaccine, whole virus Bob Arriaga MD Work Phone: [facility] 05-03-2008 influenza virus vaccine, unspecified formulation Bob Arriaga MD Work Phone: [facility] 04-30-2007 influenza virus vaccine, whole virus Bob Arriaga MD Work Phone: [facility] Healthcare Payers Date Payer Category Payer [facility] [id number] 2024 Unknown [id number] 2024 Private Health Insurance [id number] 2024 Self-pay [id number] 2022 [facility] [id number] 2022 Unknown [id number] 2022 Private Health Insurance [facility] [id number] 1983 Unknown [id number] 1983 Unknown [id number]. 593 1983 Unknown [id number]. 593 1983 Unknown [id number]. 593 1983 Unknown [id number] [id number]. 593 1983 Unknown [id number] [id number]. 593 1983 Unknown [id number] [id number]. 727 1983 Unknown [id number]. 1259 1959 Unknown [id number] 1959 Unknown [id number] Private Health Insurance [facility] [id number] Unknown [id number] Unknown [id number] 531 Unknown [id number] 531 Social History Date Type Detail Facility Start: 05-11-2023 End: 04-12-2025 Sex Assigned At [facility] Start: 04-10-2021 End: 01-18-2025 Tobacco smoking status NHIS Never smoked tobacco (finding) [place] Start: 1985 Sex Assigned At Female [facility] Start: 08-01-2024 End: 12-15-2024 Sex Female (finding) [place] Start: 04-08-2025 Alcoholic beverage intake Current drinker of alcohol (finding) [facility] Start: 05-11-2023 End: 04-12-2025 History of Social function [facility] How often to you hav e a drink containing alcohol? Monthly or less [facility] How many standard drinks containing alcohol do you have on a typical day? 1 or 2 [facility] How often do you hav e 6 or more drinks on 1 occasion? Never [facility] Start: 03-14-2023 Alcohol Comment Alcohol: 1 or 2 drinks on a typical day/monthly or less Caffeine: coffee, soda [facility] Start: 03-19-2023 Gender identity Identifies as female gender (finding) [facility] Start: 03-19-2023 Sexual orientation Heterosexual (fin ding) [facility] Start: 04-12-2025 Tobacco use and exposure Smokeless tobacco non-user [facility] Start: 04-12-2025 Alcoholic beverage intake Lifetime non-drinker (finding) [facility] NEGATED: Highlighted row [place] Medical Equipment Procedure Code Equipment Code Equipment Origin al Text Equipment Identifier Dates Cervical total d isc replacement prosthesis, sterile [id number] FDA Start: 04-10-2021 Goals Date Patient Goal Desired Activity /State Clinical Notes 05-09-2021 to 04-12-2025 Bob Arriaga MD - 04/12/2025 1:10 PM EDT Note Date & Type Note Facility 04-12-2025 History of Presen t illness Narrative Subjective Patient ID: Martha Heaton is a 40 y.o. female who presents for Neck Swelling ([facility] 03/26/25) Pt reports a 15 year h/o RT parotid and left submandibular gland swelling and tenderness. Has pain when chews. Reports a h/o GERD. CT neck without contrast that does not show an abnormality. Pt has bruxism and wears an oral appliance. Pt also reports a one day h/o left helical pain and swelling Review of Systems All other systems reviewed and are negative. Family History Problem Relation Name Age of Onset Breast cancer Mother Violetta Hypertension Father Saurabh Cancer Maternal Grandmother Sanaz Hypertension Maternal Grandfather Anuj Stroke Maternal Grandfather Anuj Heart disease Maternal Grandfather Anuj Active Ambulatory Problems Diagnosis Date Noted Abdominal pain 04/08/2025 Acute non-suppurative otitis media 04/08/2025 Acute sinusitis 04/08/2025 Anxiety 08/15/2009 Benign essential hypertension 08/15/2009 Bilateral tinnitus 04/08/2025 Blood in stool 04/08/2025 Cervical disc disorder at C5-C6 level with radiculopathy 04/08/2025 Chronic maxillary sinusitis 04/08/2025 Cough 04/08/2025 Fever 04/08/2025 GERD (gastroesophageal reflux disease) 04/08/2025 Hypertension 04/08/2025 Influenza A 04/08/2025 Mass of left submandibular region 04/08/2025 Nausea 04/08/2025 Obesity 04/08/2025 Parotitis 04/08/2025 Screening mammogram for breast cancer 04/08/2025 Sleep apnea 04/08/2025 Stress incontinence 04/08/2025 Trigger finger 04/08/2025 Resolved Ambulatory Problems Diagnosis Date Noted No Resolved Ambulatory Problems Past Medical History: Diagnosis Date Gallbladder disease History of abnormal cervical Pap smear Irregular menses MAMI (obstructive sleep apnea) Other acute nonsuppurative otitis media of left ear, recurrence not specified ([facility] ([facility]) Scarlet fever Varicella zoster Past Surgical History: Procedure Laterality Date ABDOMINAL SURGERY 2008 and 2010 CHOLECYSTECTOMY 2010 DILATION AND CURETTAGE OF UTERUS with diagnostic lap with nilateral salpingectomy HYSTEROSCOPY 2022 MYOMECTOMY 2022 OTHER SURGICAL HISTORY 01/25/2016 R MMA, r/o CB SINUS SURGERY 2016 SPINE SURGERY discectomy TONSILLECTOMY 1989 TUBAL LIGATION Bilateral 2014 VAGINAL DELIVERY delivered at 34 wks in [place] - #2PROM VAGINAL DELIVERY 2006 No Known Allergies Current Outpatient Medications on File Prior to Visit Medication Sig Dispense Refill carvedilol (Coreg) 12.5 MG tablet Twice daily omeprazole (PriLOSEC) [address] capsule Daily raNITIdine HCl (RANITIDINE 150 MAX STRENGTH PO) Daily sertraline (Zoloft) 100 MG tablet 1 (one) time each day at the same time [DISCONTINUED] metoprolol succinate XL (Toprol-XL) 25 MG 24 hr tablet Take 25 mg by mouth in the morning. No current facility-administered medications on file prior to visit. Objective Last Recorded Vitals Vitals: 04/12/25 1309 BP: (!) 125/91 Pulse: 77 ENT Physical Exam Constitutional Appearance: patient appears well-developed, well-nourished and well-groomed, Head and Face Appearance: head appears normal and face appears atraumatic; Ear Ear Canals: right ear canal normal; left ear canal normal; Tympanic Membranes: right tympanic membrane normal; left tympanic membrane normal; Ear comments: Left helical erythema and swelling Nose External Nose: nares patent bilaterally; external nose normal; Internal Nose: septum normal; Oral Cavity/Oropharynx Tongue: normal; Oral mucosa: normal; Hard palate: normal; Soft palate: normal; Tonsils: normal; Neck Neck: neck normal; neck palpation normal; Thyroid: thyroid normal; Respiratory Inspection: breathing unlabored; normal breathing rate; Auscultation: breath sounds are clear; Cardiovascular Inspection: extremities are warm and well perfused; no peripheral edema present; Auscultation: regular rate and rhythm; Assessment/Plan Diagnoses and all orders for this visit: Chronic sialoadenitis Perichondritis of left pinna There are no abnormalities of the salivary glands evident on CT, though exam limited by the absence of contrast dye. The RT pain may be due to TMJ, but I will do screening labs for possible Sjogren syndrome. Pt has left auricular perichondritis. Tx with cipro and prednisone. documented in this encounter [facility] 03-04-2025 Evaluation note Diagnosis Onset Date Resolution Class 3 severe obesity with body mass index (BMI) of 45.0 to 49.9 in adult acute March 04 9:48am Mass of left submandibular region acute February 9:48am GERD (gastroesophageal reflux disease) acute April 19 9:29am [facility] Work Phone: 1(944) 304-254506-03-2025 [place] [address] EGD Procedure Note Signed Patient: Tessy Heaton MR#: [id number] : 1985 Acct:[id number] Age/Sex: 39 / F Adm Date: 5 Loc: Room: Type: [facility] Attending Dr: Aziza Romero DO Copies to: DO Tate Ford MD~ Esophagogastroduodenoscopy Date/Provider Date: 12/15/2024 Aziza Romero DO Narrative Narrative: Procedure: EGD with biopsy Indication: Nausea, GERD on PPI once daily Pre-operative diagnosis: Nausea, GERD on PPI once daily Post-operative diagnosis: Normal EGD s/p small bowel and gastric biopsies obtained. Sedation: propofol per anesthesia dept O2 oximetry, hemodynamic monitoring was performed pre, during, and post procedure. Patient was identified, H&P completed, patient was given full explanation of the procedure as well as associatedrisks and written consent wasobtained prior to procedure. Patient expressed complete understanding of the procedure as well as alternatives to the procedure and to anesthesia and agreed to proceed with the procedure as indicated. Patient was immediately reassessed prior to IV sedation. Following IV sedation, patient was placed in the left lateral decubitus position. Bite block was inserted. Endoscope was passed through the mouth, into the esophagus. Endoscope was advanced into the stomach through the pyloricchannel and into the 2nd portion of duodenum by direct visualization. Endoscopewas withdrawn into the stomach and retroflexion was performed. The endoscope was straightened,the stomach was decompressed. Endoscope was withdrawn into the esophagus then completely removed with the findings as below. Findings: DUODENUM: The bulb and descending portion appeared normal. Biopsies were obtained from the small bowel for histology and to rule out Celiac disease. STOMACH: The pyloric channel, antrum, body, fundus and cardia, including retroflexed views appear normal. Biopsies were obtained from the gastric antrum and body for histology and to rule out H. Pylori. ESOPHAGUS: GE junction (upper margin of gastric folds) was at 40 cm from incisors and regular. Mucosa appeared normal. Biopsy taken: Yes Complications: None EBL: Minimal Recommendations: -Follow up pathology -Resume normal diet -continue PPI and lifestyle modifications for GERD -Follow up in the office if symptoms persist -Repeat EGD as needed -Follow up with PCP Following a period of recovery, patient was seen and given full explanation of the procedure. Patient tolerated the procedure well and will be discharged in satisfactory, stable condition. Aziza Romero DO Documented By: Aziza Romero DO 12/15/24 1434 Signed By: 12/15/24 1449 [place]06-03-2025 [place] [address] Gastroenterology H&P Signed Patient: Tessy Heaton MR#: [id number] : 1985 Acct:[id number] Age/Sex: 39 / F Adm Date: 5 Loc: Room: Type: [facility] Attending Dr: Aziza Romero DO Copies to: DO Tate Ford MD~ Date of Service: 12/15/2024 HISTORY & PHYSICAL: Patient's history with special attention to the cardiovascular, pulmonary systems and the current problem was reviewed with the patient immediately prior to the procedure. Present medications and doses reviewed in the EMR. Allergies and pertinent laboratory tests were also re viewedat this time in the EMR. The physical examination, as below, was then performed. Indication, assessment and HPI: 39-year-old female who presents for EGD for GERDand nausea. Patientis on pantoprazole 40 mg once daily. No prior EGD. Family history of GI malignancy? No PHYSICAL EXAMINATION General appearance: cooperative, NAD Skin: No jaundice, no rash or lesions Head: NCAT Eyes: Anicteric Neck: Supple Lungs: Normal respiratory effort, no use of accessory muscles Abdomen: Soft, nondistended Neuro: No focal deficits, Ox3. REVIEW OF SYSTEMS Constitutional: Denies malaise, fevers Cardiovascular: Denies chest pain, palpitations Respiratory: Denies shortness of breath, wheezing Gastrointestinal: As per HPI Genitourinary: Denies dysuria, polyuria Musculoskeletal: Denies joint swelling, joint stiffness Neurological: Denies confusion, numbness, tingling Endocrine: Denies fatigue Written informed consent obtained from the patient. Risks (including but not limited to perforation, infection, bloating, bleeding, need for emergent surgeryand loss of life), benefits and alternatives explained and questions answered. The patient verbalized understanding. Based on history patient is an appropriate candidate for the procedure. Aziza Romero DO Present medication and doses reviewed in the EMR Documented By: Aziza Romero DO 12/15/24 1433 Signed By: 12/15/24 1434 [place]05-05-2025 Evaluation note* Diagnosis Onset Date Resolution Status Admit Date GERD (gastroesophageal reflu x disease) acute November 16, 2024 1: 14pm Nausea acute November 16, 2024 1:14pm Chest pain acute November 26, 2024 11:21am GERD (gastroesophageal reflu x disease) acute November 26, 2024 1 1:21am Sleep apnea acute November 26 11:21am [facility] Work Phone: 1(758) 822-667102-27-2025 Evaluation note* Diagnosis Onset Date Resolution Status Admit Date Anxiety acute September 10, 2024 1:33pm Hypertension acute August 1:33pm [facility] Work Phone: 1(489) 678-391602-27-2025 Evaluation note* Diagnosis Onset Date Resolution Status Admit Date Anxiety acute September 10, 2024 1:33pm Hypertension acute August 1:33pm GERD (gastroesophageal reflu x disease) acute November 16, 2024 1: 14pm Nausea acute November 16, 2024 1:14pm [facility] Work Phone: 1(855) 183-454201-18-2025 Evaluation note* Diagnosis Onset Date Resolution Status Admit Date Acute sinusitis acute July 152024 9:39am Cough acute August 11, 2024 9:20am Fever acute August 11, 2024 9:20am Influenza A acute August 11, 2024 9:20am [facility] Work Phone: 1(217) 347-566311-05-2024 Evaluation note* Diagnosis Onset Date Resolution Status Admit Date Blood in stool acute May 192023 2:03pm Screening mammogram for [facility] cancer acute May 19 2:03pm Stress incontinence acute Novem 2023 2:03pm Wellness examination acute Nov 2023 2:03pm [facility] Work Phone: 1(463) 589-114111-05-2024 Evaluation note* Diagnosis Onset Date Resolution Status Admit Date Blood in stool acute May 192023 2:03pm Screening mammogram for melqui[facility] cancer acute May 19 2:03pm Stress incontinence acute 2023 2:03pm Wellness examination acute Nove mber 2023 2:03pm Acute sinusitis acute July 152024 9:39am Cough acute August 11, 2024 9:20am Fever acute August 11, 2024 9:20am Influenza A acute August 11, 2024 9:20am [facility] Work Phone: 1(742) 994-425411-05-2024 Hospital Discharge instructionsAmbulatory Orders* Referral to Gastroenterology Time Frame: 05/19/24, Location: None Selected [facility] Work Phone: 1(631) 171-169301-30-2024 Evaluation note* Encounter Date Diagnosis Assessment Notes Treatment Notes Treatment Clinical Notes Jul, Non-seasonal allergic rhinitis, unspecified trigger (ICD-10 - J30.89) trial of a daily allergy med and kenalog. has been congested since April. Followup as needed. [facility] Other 12-29-2023 Evaluation note* Encounter Date Diagnosis Assessment Notes Treatment Notes Treatment Clinical Notes Jun, Trigger finger, righ t middle finger (ICD-10 - M65.331) Tessy is here now 1 week out from [...] as documented in the electronic medical record. [facility] Other 12-18-2023 Evaluation note* Encounter Date Diagnosis Assessment Notes Treatment Notes Treatment Clinical Notes Jun, Essential (primary) hypertension (ICD-10 - I10) [facility] Other 11-21-2023 Evaluation note* Encounter Date Diagnosis [...] morning. Agrees to referral to Dr. Loja. 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 [facility] Other 10-14-2022 Evaluation note* Encounter Date Diagnosis Assessment Notes Treatment Notes Treatment Clinical Notes Apr, Primary osteoarthritis of right knee (ICD-10 - M17.11) Tessy presents with right knee pain. At this [...] ordered today to evaluate for internal derangement [facility] Other 08-31-2022 Evaluation note* Encounter Date Diagnosis Assessment Notes Treatment Notes Treatment Clinical Notes Feb, Primary osteoarthritis of right knee (ICD-10 - M17.11) Tessy presents with right knee pain. At this [...] as documented in the electronic medical record. [facility] Other 10-26-2021 Evaluation note* Encounter Date Diagnosis Assessment Notes Treatment Notes Treatment Clinical Notes Apr, Disorder of intervertebral disc at C5-C6 level with radiculopathy (ICD-10 - M50.122) Tessy is doing very well, her radicular pain is completely gone. She did have some regrowth pain, but has not had any for the last 5 days. I will see her again in 2 months with a x-ray of her cervical spine. [facility] Other evaluation noteNo assessment information available [facility] Work Phone: Evaluation noteNo InformationNortCancer Treatment Centers of [facility] cdream network Other Evaluation note* Diagnosis Onset Date Resolution Status Blood in stool acute Screening mammogram for breast cancer acute Wellness examination acute [facility] Work Phone: Evaluation note* Diagnosis Onset Date Resolution Status Admit Date Mass of left submandibular region acute March 04 9:48am [facility] Work Phone: Evaluation note* Diagnosis Chronic sialoadenitis- Primary Perichondritis of left pinna documented in this encounter [facility] Author Aziza Romero [place] Note Date/Time December 15, 2024 2:34p m [facility] [address] [place] [address] Gastroenterology H&P Signed Patient: Tessy Heaton MR#: [id number] : 1985 Acct:[id number] Age/Sex: 39 / F Adm Date: 5 Loc: Room: Type: [facility] Attending Dr: Aziza Romero DO Copies to: DO Tate Ford MD~ Date of Service: 12/15/2024 HISTORY & PHYSICAL: Patient's history with special attention to the cardiovascular, pulmonary systems and the current problem was reviewed with the patient immediately prior to the procedure. Present medications and doses reviewed in the EMR. Allergies and pertinent laboratory tests were also reviewedat this time in the EMR. The physical examination, as below, was then performed. Indication, assessment and HPI: 39-year-old female who presents for EGD for GERDand nausea. Patient is on pantoprazole 40 mg once daily. No prior EGD. Family history of GI malignancy? No PHYSICAL EXAMINATION General appearance: cooperative, NAD Skin: No jaundice, no rash or lesions Head: NCAT Eyes: Anicteric Neck: Supple Lungs: Normal respiratory effort, no use of accessory muscles Abdomen: Soft, nondistended Neuro: No focal deficits, Ox3. REVIEW OF SYSTEMS Constitutional: Denies malaise, fevers Cardiovascular: Denies chest pain, palpitations Respiratory: Denies shortness of breath, wheezing Gastrointestinal: As per HPI Genitourinary: Denies dysuria, polyuria Musculoskeletal: Denies joint swelling, joint stiffness Neurological: Denies confusion, numbness, tingling Endocrine: Denies fatigue Written informed consent obtained from the patient. Risks (including but not limited to perforation, infection, bloating, bleeding, need for emergent surgeryand loss of life), benefits and alternatives explained and questions answered. The patient verbalized understanding. Based on history patient is an appropriate candidate for the procedure. Aziza Romero DO Present medication and doses reviewed in the EMR Documented By: Aziza Romero DO 12/15/24 1433 Signed By: <Electronically signed by Aziza Romero DO> 12/15/24 1434 [facility] Work Phone: Hisenlg general Narrative - Reported* Type Description Date Medical History Hypertension Medical History anxiety Medical History obesity Surgical History cholecystectomy Surgical History tubal ligation Surgical History tonsillectomy Hospitalization History See Above [facility] Other [facility] general Narrative - Reported* Type Description Date Medical History Hypertension Medical History anxiety Medical History obesity Surgical History cholecystectomy Surgical History tubal ligation Surgical History tonsillectomy Surgical History c-spine Hospitalization History See Above [facility] Other Hispy[facility] general Narrative - Reported* Type Description Date [...] : Cholecystectomy Tonsillectomy Sinus surgery - Dr. Arriaga 02/2016, Problem Status : Active, Hospitalization History See Above [facility] Other History general Narrative - Reported* Type Description Date Medical History Hypertension Medical History anxiety Medical History obesity Surgical History cholecystectomy Surgical History tubal ligation Surgical History tonsillectomy Surgical History c-spine Surgical History Diagnostic D& C, removal of tub es 04/2023 Hospitalization History See Above [facility] Other Hospital Discharge instructions Additional Instructions Trigger [...] prescribed. You may take Motrin or Tylenol [id number] if you wish. Follow-up in 1 week for reevaluation suture removal. Call to make an appointment if you have not already scheduled one. Dr. Jesse Sewell [facility] [address] [place], [place] [id number] [phone] [facility] Work Phone: Hospital Discharge instructionsAmbulatory Orders* Referral to ENT Location: None [facility] Work Phone: Reason for referral (narrative)No reason for referral information availableSelect [facility] [place] Work Phone: Chief Complaint and Reason for [...] 2024 1:33pm Hypertension September 10, 2024 1:33pm Chief Complaint Admit Date BP Issues September 10, 2024 1:33pm nausea November 16, 2024 1:14pm Amb Documentation November 24, 2024 9:37a m go over ecg November 26, 2024 11:21 am Reason for Visit Admit Date Anxiety September 10, 2024 1:33pm Hypertension September 10, 2024 1:33pm GERD (gastroesophageal reflux disease) M 2024 1:14pm Nausea November 16, 2024 1:14pm Chief Complaint Admit Date nausea November 16, 2024 1:14pm Amb Documentation November 24, 2024 9:37a m go over ecg November 26, 2024 11:21 am gerd December 15, 2024 12:35 pm gerd December 15, 2024 2:34p m Reason for Visit Admit Date GERD (gastroesophageal reflux disease) M ay 2024 1:14pm Nausea November 16, 2024 1:14pm Chest pain November 26, 2024 11:21 am GERD (gastroesophageal reflux disease) M ay 2024 11:21am Sleep apnea November 26, 2024 11:21 am Chief Complaint Admit Date gerd December 15, 2024 12:35 pm gerd December 15, 2024 2:34p m swollen lymph nodes March 04, 2025 9: 48am Reason for Visit Admit Date Mass of left submandibular region March 04, 2025 9:48am Chief Complaint Admit Date swollen lymph nodes March 04, 2025 9: 48am f/u EGD / GERD April 19, 2025 9: 29am Reason for Visit Admit Date Class 3 severe obesity with body mass index (BMI) of 45.0 to 49.9 in adult March 04, 2025 9:48am Mass of left submandibular region March 04, 2025 9:48am GERD (gastroesophageal reflux disease) O ct2024 9:29am Family History Relationship Condition Age at Onset [...] righ t middle finger (M65.331) Referral Organization [facility] Referring Provider First Name Tate Referring Provider Last Name Azael Referring Provider Specialty Family Medi cine Referred Organization Unknown Facility Referred Provider Shavon Loja Referred Provider Specialty Hand Surgery Referral Priority Routine Reason Dr. Cook RUBY ENGINEER - abnormal bleeding; labs and pelvic US pending Diagnosis 1 Encounter for gyneco logical examination without abnormal finding (Z01.419) Referral Organization [facility] johny Referring Provider First Name Tate Referring Provider Last Name Azael Referring Provider Specialty Family [facility] Referred Organization [facility] Referred Provider Mauri Katz Referred Address [address] [place], [place],[address] Referred Provider Specialty OB - Gynecol ogy Referral Priority Routine General Notes Lauren Martinez 04:03:16 PM >received today, awaiting labs and US Clinical Notes f: [id number] Additional Source Comments REASON FOR VISIT (unrecogniz ed section and content) Reason Comments Neck Swelling CT [facility] 03/26/25 Specialty Diagnoses / Procedures Referred By Enrique cornell Referred To Contact Otolaryngology Diagnoses Localized swelling, mass and lump, head Procedures DC UNLISTED EVALUATION AND MANAGEMENT SERVICE [facility] [address], [facility] [address] [place] [address] Phone: tel: fax: Bob Arriaga MD [address] [facility] [address] [place] [address] Phone: tel: fax: Referral ID Status Reason Start Date Expiration Date V isits Requested Visits Authorized [id number] Closed Consult and Treat 03/04/2025 08/31/2025 1 1 Care Teams (unrecognized sec tion and content) Team Status: Inactive Member Role Status Dates Tate Addison MD Primary Care Provider Active Yonathan Okeefe DO Family Provider Active Jesse Sewell DO Attending Provider Active Team Status: Active Member Role Status Dates Yonathan Okeefe DO Family Provider Active Tate Addison MD Primary Care Provider Active Team Status: Active Member Role Status Dates Yonathan Okeefe DO Family Provider Active Team Status: Inactive Member Role Status Dates Tate Addison MD Attending Provider Active Yonathan Okeefe DO Family Provider Active Team Status: Inactive Member Role Status Dates Yonathan Okeefe DO Family Provider Active Jesse Sewell DO Attending Provider Active Tate Addison MD Primary Care Provider Active Team Status: Inactive Member Role Status Dates Tate Addison MD Primary Care Provide r, Attending Provider Active Start: January 24, 2024 End: January 24, 2024 Team Status: Inactive Member Role Status Sukhwinder Addison MD Primary Care Provide r, Attending Provider Active Start: May 19, 2024 End: May 19, 2024 Team Status: Active Member Role Status Dates Tate Addison MD Primary Care Provide r, Attending Provider Active Start: May 28, 2024 Team Status: Inactive Member Role Status Sukhwinder Addison MD Primary Care Provider Active Start: June 23, 2024 End: June 23, 2024 Aziza L Ly , DO Attending Provider Active St art: June 23, 2024 End: June 23, 2024 Team Status: Active Member Role Status Dates Tate Addison MD Primary Care Provider Active Start: [...] End: August 11, 2024 Alice Irving APRN DEHYDROGENATION CONVERTER OPERATOR-C Attending Provider Active Start: August 11, 2024 [...] November 16, 2024 End: November 16, 2024 Team Status: Active Member Role Status Sukhwinder Addison MD Primary Care Provider Active Start: November 22, 2024 Magdaleno Acosta , Attending Provider Active S tart: November 22, 2024 Team Status: Active Member Role Status Sukhwinder Addison MD Primary Care Provider Active Start: November 24, 2024 Aziza Jackson CMA Attending Provider Active Start: November 24, 2024 Team Status: Inactive Member Role Status Dates Tate Addison MD Primary Care Provide r, Attending Provider Active Start: November 26, 2024 End: November 26, 2024 Team Status: Inactive Member Role Status Dates Tate Addison MD Primary Care Provider Active Start: December 15, 2024 End: December 15, 2024 Aziza L Ly , DO Attending Provider Active St art: December 15, 2024 End: December 15, 2024 Team Status: Active Member Role Status Dates Tate Addison MD Primary Care Provider Active Start: December 15, 2024 Aziza L Ly , DO Attending Provider, Other Provider Active Start: December 15, 2024 Team Status: Active Member Role Status Dates Tate Addison MD Primary Care Provider Active Start: December 15, 2024 Aziza L Ly , DO Attending Provider Active St art: December 15, 2024 Aziza L Ly , DO Other Provider Active Start: December 15, 2024 Team Status: Active Member Role Status Dates Tate Addison MD Primary Care Provider Active Start: January 18, 2025 Елена Gordon DO Attending Provider Active Sta rt: January 18, 2025 Team Status: Inactive Member Role Status Dates Tate Addison MD Primary Care Provider Active Start: March 04, 2025 End: March 04, 2025 Tate Addison MD Attending Provider Active St art: March 04, 2025 End: March 04, 2025 Airborne Operations Superintendent Relationship Specialty Start Date End Date Tate Addison MD [address] [place] [address] PCP - General Family Medicine 03/23/25 Airborne Operations Superintendent Relationship Specialty Start Date End Date Tate Addison MD [address] [place] [address] PCP - General Family Medicine 03/23/25 Team Status: Active Member Role Status Dates Tate Addison MD Primary Care Provider Active Team Status: Active Member Role Status Dates Tate Addison MD Primary Care Provider Active Start: January 20, 2025 Елена Gordon DO Attending Provider Active Sta rt: January 20, 2025 Team Status: Inactive Member Role Status Dates Tate Addison MD Primary Care Provider Active Start: April 19, 2025 End: April 19, 2025 Aziza Romero DO Attending Provider Active St art: April 19, 2025 End: April 19, 2025 Goals (unrecognized section and content) Goals may be documented in a n alternate section INFORMATION SOURCE (unrecogn ized section and content) DATE CREATED AUTHOR 04/25/2022 [facility] DATE CREATED AUTHOR AUTHOR'S ORGANIZ ATION 08/22/2022 [facility] DATE CREATED AUTHOR AUTHOR'S ORGANIZ ATION 12/22/2024 [facility] DATE CREATED AUTHOR AUTHOR'S ORGANIZ ATION 04/18/2025 [facility] d[facility] Specialists [facility] FOR RECORDS PERTAINING TO PATIENTS WHO ARE [...] BE BASED ON THE PRIMARY CLINICAL RECORDS. [employer] provides no warranty or guarantee of the accuracy or completeness of information in this document.
[2025-04-23 11:24] LABS: Hematocrit 42.7 % (36.0-48.0); Hemoglobin 13.8 g/dL (12.0-16.0); Immature Granulocytes Abs Auto 0.02 10^3/uL (0.00-0.03); Immature Granulocytes Pct Auto 0.3 % (0.0-0.5); Lymphocytes Absolute Auto 2.4 10^3/uL (1.2-3.8); Mean Corpuscular HGB Conc 32.3 g/dL (29.9-35.2); Mean Corpuscular Hemoglobin 27.0 pg (26.7-34.0); Mean Corpuscular Volume 83.4 fL (81.0-99.0); Platelet Count 388 10^3/uL (150-450); Red Blood Count 5.12 10^6/uL (4.20-5.40); White Blood Count 6.5 10^3/uL (4.0-11.0)
== END 2025-04-23 09:27 | disposition home or self-care (01) ==
LOC: LAB 09:29
PROVIDERS: PCP Family Medicine; Visit Provider Otolaryngology
DX: K11.23 Chronic sialoadenitis (principal)
CPT/HCPCS: 36415; 85025; 85652; 86140; 86235; 86431

== ENCOUNTER 2025-05-31 08:31 | Outpatient (OUT) | payer BC, OTHER, SELFPAY ==
--- NOTE | 2025-05-31 08:48 | MM_ITS ---
Patient Name: LEANDRO HEATON MR#: [id number] : 1985 Exam Date: 05/31/2025 Ordering Doctor: DR TATE ADDISON M.D. RADIOLOGY REPORT PROCEDURE: MM TOMOSYNTHESIS SCREENING BI COMPARISON: MM TOMOSYNTHESIS SCREENING BI, 05/28/2024. MM TOMOSYNTHESIS SCREENING BI, 03/01/2023. MG MAMM DIAGNOSTIC 3D ROGE CAD, 01/12/2022. INDICATIONS: Screening Calculator Name NCI Breast Cancer Risk Assessment Tool 5 Year Breast Cancer Risk 1.20% Lifetime Breast Cancer Risk 16.60% Personal Breast Cancer No Personal Ovarian Cancer No Treatments None Family Cancers Mother with breast cancer at age 64. LOCATION: [facility] BREAST COMPOSITION: The breasts are almost entirely fatty. FINDINGS: RIGHT BREAST: No significant suspicious finding. LEFT BREAST: No significant suspicious finding. DIAGNOSTIC CATEGORY 1--NEGATIVE. NO CHANGE FROM COMPARISON ASSESSMENT. RECOMMENDATIONS: ROUTINE MAMMOGRAM AND CLINICAL EVALUATION IN 12 MONTHS. Dictated by: Andry Gomes MD on 05/31/2025 at 13:51 Approved by: Andry Gomes MD on 05/31/2025 at 15:33
[2025-05-31 09:04] LABS: Hematocrit 41.5 % (36.0-48.0); Hemoglobin 13.6 g/dL (12.0-16.0); Immature Granulocytes Abs Auto 0.02 10^3/uL (0.00-0.03); Immature Granulocytes Pct Auto 0.3 % (0.0-0.5); Lymphocytes Absolute Auto 1.9 10^3/uL (1.2-3.8); Mean Corpuscular HGB Conc 32.8 g/dL (29.9-35.2); Mean Corpuscular Hemoglobin 27.4 pg (26.7-34.0); Mean Corpuscular Volume 83.5 fL (81.0-99.0); Platelet Count 340 10^3/uL (150-450); Red Blood Count 4.97 10^6/uL (4.20-5.40); White Blood Count 6.9 10^3/uL (4.0-11.0)
[2025-05-31 10:11] LABS: Alanine Aminotransferase 23 U/L (14-59); Albumin Globulin Ratio 1.0; Albumin Level 3.6 g/dL (3.4-5.0); Alkaline Phosphatase 88 U/L (46-116); Anion Gap 10.3; Aspartate Amino Transferase 15 U/L (15-37); Blood Urea Nitrogen 9.0 mg/dL (7.0-18.0); Calcium 9.2 mg/dL (8.5-10.1); Carbon Dioxide 29.1 mmol/L (21.0-32.0); Chloride 105 mmol/L (98-107); Cholesterol 182 mg/dL (<=200); Estimated GFR (African America >60 (>=60 mL/min/1.73m^2); Estimated GFR (Non-African Ame >60 (>=60 mL/min/1.73m^2); Globulin 3.5 g/dL; Glucose 109 mg/dL (74-106); HDL Cholesterol 38 mg/dL (40-60); Potassium 4.4 mmol/L (3.5-5.1); Sodium 140 mmol/L (136-145); Total Protein 7.1 g/dL (6.4-8.2); Triglycerides 125 mg/dL (<=150); VLDL CHOLESTEROL 25.0 mg/dL
== END 2025-05-31 08:32 | disposition home or self-care (01) ==
LOC: MAMMO 08:31
PROVIDERS: PCP Family Medicine; Visit Provider Family Medicine
DX: Z00.00 Encounter for general adult medical examination without abnormal findings (principal); Z12.31 Encounter for screening mammogram for malignant neoplasm of breast; Z80.3 Family history of malignant neoplasm of breast
CPT/HCPCS: 36415; 77063; 77067; 80053; 80061; 85025